=== PATIENT | male | born 1955 | race African-American/Black ===

== ENCOUNTER 2017-04-07 09:59 | Inpatient (IN) | payer OTHER ==
[2017-04-07 10:17] VITALS: BMI 32.7
--- NOTE | 2017-04-07 10:28 | PDOC ---
History of Present Illness - General Chief Complaint: Edema Stated Complaint: WEAKNESS Time Seen by Provider: 04/07/17 10:27 History Source: Patient Exam Limitations: No Limitations - History of Present Illness Initial Comments: 04/07/17 10:27 CHIEF COMPLAINT: Leg swelling HISTORY OF PRESENT ILLNESS: This is a 61-year-old male with a history of hypertension who presents for evaluation of right leg redness and swelling. The patient traveled to [facility] for 21 days, returning yesterday. While he was there, about 10 days ago, he fell and sustained some knee and tibial abrasions on the pavement. 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 He was wearing long pants so he is not sure if it was read at the time. This morning he noticed extensive redness and warmth. He reports fevers/chills overnight, but did not take his temperature. He did take a cold medicine this morning that contained Tylenol and is afebrile here. Vital signs on arrival are notable for pulse of 103. PCP is Dr. Emerita Tejada. Surgical history includes bilateral TKR. REVIEW OF SYSTEMS: GENERAL/CONSTITUTIONAL: Subjective fevers/chills. No weakness. No weight change. HEAD, EYES, EARS, NOSE AND THROAT: No change in vision. No ear pain or discharge. No sore throat. CARDIOVASCULAR: No chest pain or palpitations. RESPIRATORY: No cough, wheezing, or shortness of breath. GASTROINTESTINAL: No nausea, vomiting, diarrhea or constipation. GENITOURINARY: No dysuria, frequency, or change in urination. MUSCULOSKELETAL: RLE pain, much worse with weight-bearing. SKIN: See HPI. NEUROLOGIC: No headache, vertigo, loss of consciousness, or loss of sensation. PSYCHIATRIC: No depression or anxiety. ENDOCRINE: No increased thirst. No abnormal weight change. HEMATOLOGIC/LYMPHATIC: No anemia, easy bleeding, or history of blood clots. ALLERGIC/IMMUNOLOGIC: No hives or skin allergy. No latex allergy. PHYSICAL EXAM: GENERAL: The patient is awake, alert, and fully oriented, in no acute distress. HEAD: Normal with no signs of trauma. ENT: Pupils equal, round and reactive to light, extraocular movements intact, sclera anicteric, conjunctiva clear. Neck supple. LUNGS: Clear to auscultation bilaterally. Normal excursion. No respiratory distress or use of accessory muscles. CV: RRR, S1/S2, no MRG. Cap refill < 2 sec. ABDOMEN: Soft, non-distended, non-tender. EXTREMITIES: Right tibial area with extensive redness, warmth, and edema. Exquisitely painful to light touch. NEUROLOGICAL: Normal speech, normal gait. CN II-XII grossly intact. PSYCH: Normal mood, normal affect. SKIN: Multiple right knee abrasions, one central open abrasion at lateral aspect of right tibia. Past History - Past Medical History Allergies/Adverse Reactions: Allergies Allergy/AdvReac Type Severity Reaction Status Date / Time No Known Allergies Allergy Verified 04/07/17 10:11 Home Medications: Ambulatory Orders Amlodipine/Valsartan [Exforge 10-160 mg Tablet] 1 tab PO DAILY 04/07/17 HTN: Yes - Immunization History Immunization Up to Date: Yes - Psycho/Social/Smoking Cessation Hx Suicidal Ideation: No Smoking History: Current every day smoker Cigars Per Day: 2 Information on smoking cessation initiated: No Hx Alcohol Use: No Drug/Substance Use Hx: No *Physical Exam - Vital Signs Last Vital Signs Temp Pulse Resp BP Pulse Ox 98.7 F 103 H 15 114/98 98 04/07/17 10:12 04/07/17 10:12 04/07/17 10:12 04/07/17 10:12 04/07/17 10:12 ED Treatment Course - LABORATORY CBC & Chemistry Diagram: 04/07/17 10:59 04/07/17 10:59 Medical Decision Making - Medical Decision Making 04/07/17 11:08 A/P: 61 year old male with rapidly progressive cellulitis of the lower extremity after travel to [facility]. 1. Sepsis labs and mills-culture 2. Empiric abx: Vancomycin, Zosyn, Clindamycin 3. Xray tib/fib to evaluate for gas-forming bacteria 4. Duplex u/s to r/o DVT 5. Red area demarcated 6. Oxycodone for pain 7. ID evaluation 8. Anticipate admission 04/07/17 12:17 WBC 13.9 with 93.3% neutrophils. TBili 2.2, AST/ALT 124/128 (no prior available for comparison) Lactic acid 2.9 - 1L fluid bolus ordered. 04/07/17 12:58 Accepted for admission by Dr. Evans. *DC/Admit/Observation/Transfer Diagnosis at time of Disposition: Cellulitis Qualifiers: Site of cellulitis: extremity Site of cellulitis of extremity: lower extremity Laterality: right Qualified Code(s): L03.115 - Cellulitis of right lower limb Sepsis Qualifiers: Sepsis type: sepsis due to unspecified organism Qualified Code(s): A41.9 - Sepsis, unspecified organism - Discharge Dispostion Admit: Yes - Referrals Referrals: Emerita Hogue MD [Primary Care Provider] -
[2017-04-07] MEDS ORDERED: CLINDAMYCIN 600MG PREMIX IVPB 50 ML IVPB ONE ×2 (10:57→11:11)
[2017-04-07] MEDS ORDERED: VANCOMYCIN 1,500 MG in DEXTROSE 5%-WATER - 500 ML IVPB ONE (10:57)
[2017-04-07] MEDS ORDERED: PIPERACILLIN/TAZOB 4.5 GM/100 ML PRE-DOCKED IVPB ONE (10:57)
[2017-04-07] MEDS ORDERED: oxyCODONE HCL 5 MG TABLET PO ONE (10:59)
[2017-04-07] MEDS ORDERED: oxyCODONE HCL 5 MG TABLET ONE (11:10)
[2017-04-07] MEDS ORDERED: PIPERACILLIN/TAZOB 4.5 GM 100 ML IVPB ONE (11:11)
[2017-04-07] MEDS ORDERED: VANCOMYCIN 1 GRAM (PRE-DOCKED) 250 ML IVPB ONE (11:11)
[2017-04-07 11:41] LABS: URINE APPEARANCE CLEAR; URINE BLOOD 1+ (NEGATIVE); URINE COLOR AMBER; URINE GLUCOSE (UA) NEGATIVE (NEGATIVE); URINE KETONE TRACE (NEGATIVE); URINE LEUK ESTERASE NEGATIVE (NEGATIVE); URINE NITRITE NEGATIVE (NEGATIVE); URINE UROBILINOGEN 4.0 E.U/dl mg/dL (0.2-1.0)
[2017-04-07 11:42] LABS: URINE PROTEIN 2+ (NEGATIVE)
[2017-04-07 11:47] LABS: URINE MUCUS RARE; URINE RBC 21 /hpf (0-3); URINE WBC 11 /hpf (3-5)
[2017-04-07 12:08] LABS: BASOPHIL 0.1 % (0-2.0); EOSINOPHIL 0.7 % (0-4.5); MCH 29.4 pg (25.7-33.7); MCHC 32.1 g/dl (32.0-35.9); MEAN CELL VOLUME 91.8 fl (80-96); NEUTROPHILS 93.3 % (42.8-82.8); PLATELET COUNT 211 K/MM3 (134-434); RDW 14.3 % (11.9-15.9); WHITE BLOOD COUNT 13.9 K/mm3 (4.0-10.0)
[2017-04-07 12:21] LABS: INR 1.43 (0.82-1.09); PROTHROMBIN TIME (PATIENT) 15.9 SEC (9.98-11.88)
[2017-04-07 12:39] LABS: ALBUMIN 2.8 g/dl (3.4-5.0); ANION GAP 8 (8-16); BILIRUBIN,TOTAL 2.2 mg/dL (0.2-1.0); CALCIUM 8.5 mg/dL (8.5-10.1); CO2 27 mmol/L (21-32); CREATININE 0.9 mg/dL (0.7-1.3); GLUCOSE,RANDOM 169 mg/dL (74-106); SGOT/AST 124 U/L (15-37); SGPT/ALT 128 U/L (12-78); TOT PROT 6.6 g/dl (6.4-8.2)
[2017-04-07 12:40] LABS: ALK PHOS 124 U/L (45-117)
--- NOTE | 2017-04-07 13:16 | HP ---
Admitting History and Physical - Primary Care Physician PCP: Samantha Evans - Admission History of Present Illness: This is a 61-year-old male with a history of hypertension who presents for evaluation of right leg redness and swelling. The patient traveled to [facility] for 21 days, returning yesterday. While he was there, about 10 days ago, he fell and sustained some knee and tibial abrasions on the pavement. 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 He was wearing long pants so he is not sure if it was read at the time. This morning he noticed extensive redness and warmth. He reports fevers/chills overnight, but did not take his temperature. He did take a cold medicine this morning that contained Tylenol and is afebrile here. pt found to have extensive rle cellulitis given vanco/ clinda and zosyn in er u/s -ve for dvt x ray-ve for gas. pt seen by me in er. to be admitted to floor . comfortable no distress pain ok-- got pain meds History Source: Patient Limitations to Obtaining History: No Limitations - Past Medical History Cardiovascular: Yes: HTN - Smoking History Smoking history: Current every day smoker - Alcohol/Substance Use Hx Alcohol Use: No Home Medications - Allergies Allergies/Adverse Reactions: Allergies Allergy/AdvReac Type Severity Reaction Status Date / Time No Known Allergies Allergy Verified 04/07/17 10:11 - Home Medications Home Medications: Ambulatory Orders Amlodipine/Valsartan [Exforge 10-160 mg Tablet] 1 tab PO DAILY 04/07/17 Family Disease History - Family Disease History Family History: Unremarkable Review of Systems - Review of Systems Constitutional: reports: Chills, Fever Eyes: reports: No Symptoms HENT: reports: No Symptoms Neck: reports: No Symptoms Cardiovascular: reports: No Symptoms Respiratory: reports: No Symptoms Gastrointestinal: reports: No Symptoms Genitourinary: reports: No Symptoms Musculoskeletal: reports: Extremity Pain Integumentary: reports: Erythema Neurological: reports: No Symptoms Endocrine: reports: No Symptoms Psychiatric: reports: No Symptoms Physical Examination Vital Signs: Vital Signs Temperature 98.7 F 04/07/17 10:12 Pulse Rate 103 H 04/07/17 10:12 Respiratory Rate 15 08/06/17 10:12 Blood Pressure 114/98 08/06/17 10:12 O2 Sat by Pulse Oximetry (%) 98 04/07/17 10:12 Constitutional: Yes: No Distress, Calm Eyes: Yes: Conjunctiva Clear Neck: Yes: Supple Cardiovascular: Yes: Regular Rate and Rhythm Respiratory: Yes: CTA Bilaterally Gastrointestinal: Yes: Soft Extremities: Yes: Calf Tenderness, Erythema Edema: RLE: 1+ Peripheral Pulses WNL: Yes Neurological: Yes: WNL, Alert Psychiatric: Yes: Alert Labs: CBC, BMP 04/07/17 10:59 04/07/17 10:59 Imaging - Results Chest X-ray: Report Reviewed X-ray: Report Reviewed Ultrasound: Report Reviewed Problem List - Problems (1) Cellulitis Assessment/Plan: abx i/d consult need broad spectrum abx pain control mild hydration Code(s): L03.90 - CELLULITIS, UNSPECIFIED Qualifiers: Site of cellulitis: extremity Site of cellulitis of extremity: lower extremity Laterality: right Qualified Code(s): L03.115 - Cellulitis of right lower limb (2) Sepsis Assessment/Plan: as above. f/u cultures Code(s): A41.9 - SEPSIS, UNSPECIFIED ORGANISM Qualifiers: Sepsis type: sepsis due to unspecified organism Qualified Code(s): A41.9 - Sepsis, unspecified organism (3) Hypertension Assessment/Plan: monitor Code(s): I10 - ESSENTIAL (PRIMARY) HYPERTENSION Qualifiers: Hypertension type: essential hypertension Qualified Code(s): I10 - Essential (primary) hypertension
[2017-04-07] MEDS ORDERED: SODIUM CHLORIDE 1,000 ML IV STA (13:22)
[2017-04-07] MEDS: D5-1/2NS+20 MEQ KCL - 1,000 ML IV SCH ×2 (13:30→19:29)
[2017-04-07] MEDS ORDERED: guaiFENesin 200 MG/10 ML 10 ML UNIT-DOSE CUPS PO PRN (19:51)
[2017-04-08] MEDS ORDERED: ONDANSETRON 4 MG/2 ML VIAL ONE (02:15)
[2017-04-08] MEDS ORDERED: ONDANSETRON 4 MG/2 ML VIAL IVPB PRN (02:26)
[2017-04-08 08:37] LABS: MCH 29.7 pg (25.7-33.7); MCHC 33.1 g/dl (32.0-35.9); MEAN CELL VOLUME 89.7 fl (80-96); MEAN PLT VOLUME 7.9 fl (7.5-11.1); PLATELET COUNT 221 K/MM3 (134-434); RDW 14.5 % (11.9-15.9); WHITE BLOOD COUNT 12.4 K/mm3 (4.0-10.0)
[2017-04-08 09:04] LABS: ALBUMIN 2.4 g/dl (3.4-5.0); ALK PHOS 134 U/L (45-117); ANION GAP 5 (8-16); BILIRUBIN,TOTAL 3.5 mg/dL (0.2-1.0); CALCIUM 8.2 mg/dL (8.5-10.1); CO2 27 mmol/L (21-32); CREATININE 0.9 mg/dL (0.7-1.3); GLUCOSE,RANDOM 114 mg/dL (74-106); SGOT/AST 173 U/L (15-37); SGPT/ALT 175 U/L (12-78); TOT PROT 5.9 g/dl (6.4-8.2)
[2017-04-08] MEDS: D5-1/2NS+20 MEQ KCL - 1,000 ML IV SCH ×2 (09:22→17:11)
--- NOTE | 2017-04-08 09:26 | PN ---
Progress Note (short form) - Note Progress Note: Pt seen/ examined episodes of vomiting last night denies abd pain. low grade temp. Vital Signs Temp 99.8 F H 04/08/17 09:00 Pulse 111 H 04/08/17 09:00 Resp 20 04/08/17 09:00 BP 146/91 04/08/17 09:00 Pulse Ox 98 04/07/17 13:27 Intake & Output 04/07/17 04/07/17 04/08/17 11:59 23:59 11:59 Intake Total 300 1000 Output Total 900 Balance -600 1000 Weight 255 lb 255 lb Intake: IV 300 1000 D5-1/2Ns+20 Meq KCl - 1, 300 1000 000 ml @ 100 mls/hr IV ASDIR [facility] Rx#:[id number] Output: Urine 900 Void 900 Other: Voiding Method Urinal Bowel Movement No Height 6 ft 2 in 6 ft 2 in Body Mass Index (BMI) 32.7 32.7 Weight Measurement Method Stated by Patient Weight Measurement Method Est/Stated by Patient Active Medications Acetaminophen (Tylenol -) 650 mg PO Q6H PRN PRN Reason: FEVER OR PAIN Amlodipine Besylate (Norvasc -) 10 mg PO DAILY [facility] Enoxaparin Sodium (Lovenox -) 40 mg SQ DAILY [facility] Guaifenesin (Robitussin -) 10 ml PO Q6H PRN Potassium Chloride/Dextrose/Sod Cl (D5-1/2ns+20 Meq Kcl -) 1,000 mls @ 100 mls/ hr IV ASDIR [facility] Last Admin: 04/08/17 09:22 Dose: 100 mls/hr Ondansetron HCl (Zofran Injection) 4 mg IVPB Q6H PRN PRN Reason: NAUSEA AND/OR VOMITING Last Admin: 04/08/17 02:27 Dose: 4 mg Oxycodone HCl (Roxicodone -) 5 mg PO Q4H PRN PRN Reason: PAIN Valsartan (Diovan -) 160 mg PO DAILY [facility] CBC, BMP 04/08/17 07:05 04/08/17 07:05 Physical Examination Constitutional: Yes: No Distress, Calm Eyes: Yes: Conjunctiva Clear/ no icterus Neck: Yes: Supple/ no jvd Cardiovascular: Yes: Regular Rate and Rhythm Respiratory: Yes: CTA Bilaterally Gastrointestinal: Yes: Soft/ non tender Extremities: Yes: Calf Tenderness, Erythema-- slightly decreased Edema: RLE: 1+ Peripheral Pulses WNL: Yes Neurological: Yes: WNL, Alert Psychiatric: Yes: Alert A/P continue abx clinda i/d consult pending - will discuss. elevated lfts-- r/o acute infection-- order hepatitis profile/ u/s liver monitor smoking cessation counselling provided again. will follow Problem List - Problems (1) Cellulitis Code(s): L03.90 - CELLULITIS, UNSPECIFIED Qualifiers: Site of cellulitis: extremity Site of cellulitis of extremity: lower extremity Laterality: right Qualified Code(s): L03.115 - Cellulitis of right lower limb (2) Sepsis Code(s): A41.9 - SEPSIS, UNSPECIFIED ORGANISM Qualifiers: Sepsis type: sepsis due to unspecified organism Qualified Code(s): A41.9 - Sepsis, unspecified organism (3) Hypertension Code(s): I10 - ESSENTIAL (PRIMARY) HYPERTENSION Qualifiers: Hypertension type: essential hypertension Qualified Code(s): I10 - Essential (primary) hypertension (4) Elevated LFTs Code(s): R79.89 - OTHER SPECIFIED ABNORMAL FINDINGS OF BLOOD CHEMISTRY
[2017-04-08] MEDS ORDERED: PATIENT'S OWN MEDICATION (NON-FORMULARY) (Amlodipine/Valsartan [Exforge 10-160 Mg Tablet] PO SCH (10:00)
[2017-04-08] MEDS ORDERED: PT OWN MED DRAWER 7, Y5N ONE (10:14)
[2017-04-08] MEDS ORDERED: CLINDAMYCIN 600MG PREMIX IVPB 50 ML IVPB SCH (10:15)
[2017-04-08] MEDS: amLODIPine BESYLATE 10 MG TABLET (FP) PO SCH (10:16)
[2017-04-08] MEDS: VALSARTAN 160 MG TABLET (UD) PO SCH (10:16)
[2017-04-08] MEDS: ENOXAPARIN NA (PORCINE) 40 MG/0.4 ML DISP.SYRIN SQ SCH (10:16)
[2017-04-08 11:21] LABS: METAMYELOCYTE 2 % (0-2); PLATELET ESTIMATE ADEQUATE (NORMAL)
--- NOTE | 2017-04-08 13:38 | EKG ---
Test Reason : Blood Pressure : / mmHG Vent. Rate : 100 BPM Atrial Rate : 100 BPM P-R Int : 134 ms QRS Dur : 096 ms QT Int : 342 ms P-R-T Axes : 063 022 035 degrees QTc Int : 441 ms NORMAL SINUS RHYTHM NORMAL ECG NO PREVIOUS ECGS AVAILABLE Confirmed by MANUEL KURTZ MD ([id number]) on 04/08/2017 1:38:21 PM Referred By: Confirmed By:MANUEL KURTZ MD
[2017-04-08] MEDS: ACETAMINOPHEN 325 MG TABLET (FP) PO PRN (14:29)
--- NOTE | 2017-04-08 15:06 | PN ---
Progress Note, Physician Chief Complaint: ID Consult dictated Trauma history of a fall while [place] on [place] Fell on gravel trail n water involved and not diabetic Fever and chills with leg pain 6/10 on admission but today is lessening - Current Medication List Current Medications: Active Medications Acetaminophen (Tylenol -) 650 mg PO Q6H PRN PRN Reason: FEVER OR PAIN Last Admin: 04/08/17 14:29 Dose: 650 mg Amlodipine Besylate (Norvasc -) 10 mg PO DAILY [facility] Last Admin: 04/08/17 10:16 Dose: 10 mg Enoxaparin Sodium (Lovenox -) 40 mg SQ DAILY [facility] Last Admin: 04/08/17 10:16 Dose: 40 mg Guaifenesin (Robitussin -) 10 ml PO Q6H PRN Potassium Chloride/Dextrose/Sod Cl (D5-1/2ns+20 Meq Kcl -) 1,000 mls @ 100 mls/ hr IV ASDIR [facility] Last Admin: 04/08/17 09:22 Dose: 100 mls/hr Clindamycin Phosphate (Cleocin 600 Mg Premix Ivpb -) 50 mls @ 100 mls/hr IVPB Q8H-IV RUBÉN Last Admin: 04/08/17 10:29 Dose: 100 mls/hr Ondansetron HCl (Zofran Injection) 4 mg IVPB Q6H PRN PRN Reason: NAUSEA AND/OR VOMITING Last Admin: 04/08/17 02:27 Dose: 4 mg Oxycodone HCl (Roxicodone -) 5 mg PO Q4H PRN PRN Reason: PAIN Valsartan (Diovan -) 160 mg PO DAILY [facility] Last Admin: 04/08/17 10:16 Dose: 160 mg - Objective Vital Signs: Vital Signs Temperature 99.8 F H 04/08/17 09:00 Pulse Rate 111 H 04/08/17 09:00 Respiratory Rate 20 04/08/17 09:00 Blood Pressure 146/91 04/08/17 09:00 O2 Sat by Pulse Oximetry (%) 98 04/07/17 13:27 Constitutional: Yes: Obese Cardiovascular: Yes: S1, S2 Respiratory: Yes: WNL, Regular, CTA Bilaterally Gastrointestinal: Yes: Soft Extremities: Yes: Other (scrape of the right knee no pus no knee effusion Tender red warm RLE with induration no crepitance) Labs: CBC, BMP 04/08/17 07:05 04/08/17 07:05 INR, PTT INR 1.43 (0.82-1.09) H 04/07/17 10:59 Problem List - Problems (1) Elevated LFTs Code(s): R79.89 - OTHER SPECIFIED ABNORMAL FINDINGS OF BLOOD CHEMISTRY Assessment/Plan Microbiology 04/07/17 10:59 Blood - Peripheral Venous Blood Culture - Preliminary NO GROWTH OBTAINED AFTER 24 HOURS, INCUBATION TO CONTINUE FOR 4 DAYS. 04/07/17 10:50 Blood - Peripheral Venous Blood Culture - Preliminary NO GROWTH OBTAINED AFTER 24 HOURS, INCUBATION TO CONTINUE FOR 4 DAYS. Laboratory Tests 04/07/17 04/07/17 04/07/17 10:59 10:59 11:00 WBC 13.9 H Hgb 12.2 Plt Count 211 BUN Total Bilirubin AST ALT Alkaline Phosphatase 124 H Urine RBC 21 Urine WBC 11 04/08/17 07:05 WBC Hgb Plt Count BUN 7 Total Bilirubin 3.5 H D AST 173 H D ALT 175 H D Alkaline Phosphatase 134 H Urine RBC Urine WBC Assessment Severe cellulitis of the right leg No gas seen on plain film seems to be improving Elevated LFTS ? biliary tract disease Obesity Plan I do not think he has necrotizing fasciitis but dose have severe cellulitis Rule out biliary tract disease as he is complaing of nausea vomiting Ultrasound Zosyn 4.5 grs q 8H ESR CRP CT leg rule out abscess Agnes JEFFREY
[2017-04-08] MEDS ORDERED: PIPERACILLIN/TAZOBACTAM 4.5 GM VIAL IVPB ONE (17:07)
[2017-04-08] MEDS ORDERED: DEXTROSE 5%-WATER 100 ML IVPB ONE (17:08)
[2017-04-08] MEDS: PIPERACILLIN/TAZOB 4.5 GM 4.5 GM in DEXTROSE 5%-WATER 100 ML IVPB SCH (17:11)
[2017-04-09] MEDS ORDERED: DEXTROSE 5%-WATER 100 ML IVPB ONE ×4 (01:46→22:13)
[2017-04-09] MEDS ORDERED: PIPERACILLIN/TAZOBACTAM 4.5 GM VIAL IVPB ONE ×4 (01:46→22:13)
[2017-04-09] MEDS: PIPERACILLIN/TAZOB 4.5 GM 4.5 GM in DEXTROSE 5%-WATER 100 ML IVPB SCH ×3 (01:56→18:00)
[2017-04-09 09:05] LABS: MCH 29.7 pg (25.7-33.7); MCHC 33.1 g/dl (32.0-35.9); MEAN CELL VOLUME 89.8 fl (80-96); MEAN PLT VOLUME 8.4 fl (7.5-11.1); PLATELET COUNT 239 K/MM3 (134-434); RDW 14.7 % (11.9-15.9); WHITE BLOOD COUNT 13.9 K/mm3 (4.0-10.0)
--- NOTE | 2017-04-09 09:23 | CONS ---
DATE OF CONSULTATION: DATE OF DICTATION: 04/09/2017 This is a 61-year-old [place] male whom I am asked to see for soft tissue infection of the right lower extremity. This 61-year-old male with a history of hypertension recently traveled to [facility] for vacation. He spent approximately 3 weeks there beginning in mid March returning recently in the beginning of April. A week before he came home on the he notes that he had been hiking on a gravel trail, lost his balance, and fell sustaining a laceration and scrape to the right knee. Over the course of the week the right knee became painful and swollen and by the time he had reached [place] on his route to [facility] on the the knee was extremely painful and associated with fever and chills overnight. He came to the emergency room where he was empirically treated with vancomycin, clindamycin and Zosyn. Blood cultures were drawn and I am asked to see him for further evaluation. Since admission he notes feeling better. His pain which he initially placed as 6 out of 10 on a pain scale has now diminished overnight presumably from the antibiotics. His blood cultures thus far no growth. He also notes nausea and vomiting for the last several days but denies any abdominal pain. He has no history of prior surgery. His only other history includes a bilateral knee replacements done separately many years ago. MEDICATIONS AT HOME: Amlodipine, valsartan. ALLERGIES: None known. SOCIAL HISTORY: Nonsmoker, . HIV status unknown. FAMILY HISTORY: Reviewed, noncontributory. REVIEW OF SYSTEMS: Respiratory: No cough, shortness of breath. Cardiac: No chest pain, palpitations, murmur. Gastrointestinal: Positive nausea, positive several episodes of vomiting. Denies abdominal pain, diarrhea. Genitourinary: No dysuria, hematuria. Musculoskeletal: Pain in the right lower leg as described. PHYSICAL EXAMINATION: General: He was an alert, pleasant male in no acute distress. Vital Signs: Temperature of 101, pulse 114, blood pressure 152/96, respirations 20. Neck: Supple, no adenopathy. Lungs: Clear percussion and auscultation. Heart: S1, S2, regular rhythm. No audible murmur or gallop. Abdomen: Positive bowel sounds, soft. Positive Coleman's sign. Tenderness on direct palpation right upper quadrant. No rebound. Extremities: Revealed diffuse swelling and induration of the right lower extremity above the ankle extending to below the knee. The knee itself appeared minimally swollen with no obvious palpable effusion. The scrape laceration over the right knee appeared dry and without any purulence. No palpable crepitance. Minimal to moderate tenderness on general palpation of the right lower extremity. LABORATORY DATA: The white count was 13.9, hemoglobin 12.2, platelets 211, left shift with 93% polys. BUN 7, creatinine 0.9, bilirubin 3.5, AST 173, ALT 175, alkaline phosphatase 134, CRP of 38.7, urinalysis with 21 RBCs, 11 WBCs, negative leukocyte esterase. Two sets of blood cultures no growth. Urine culture pending. Chest x-ray shows no acute infiltrate. X-ray of the tibia, fibula shows no sign of soft tissue, air or swelling. ASSESSMENT: A 61-year-old [place] male presents with fever and traumatic injury to the right knee having fallen on a gravel path. He now has secondary severe cellulitis of the right lower extremity. Necrotizing fasciitis less likely given a moderate amount of pain and clinical improvement overnight, less than 24 hours. Additional findings include right upper quadrant tenderness with nausea and vomiting and elevated liver enzymes which I suspect are probably a secondary issue and may represent acute cholecystitis. This was all discussed with Dr. Samantha Evans after I saw the patient and I recommended that a CAT scan of the leg be obtained to rule out any abscess collection, a SED rate, ESR, and HIV testing, empiric therapy with piperacillin tazobactam 4.5 gm every 8 hours, abdominal ultrasound as well as renal ultrasound to evaluate hematuria and possible cholecystitis, advise GI consultation which has been requested, and a hepatitis screening. GAMA DELCID M.D. [id number]
[2017-04-09 09:34] LABS: ALBUMIN 2.4 g/dl (3.4-5.0); ANION GAP 9 (8-16); BILIRUBIN,TOTAL 3.7 mg/dL (0.2-1.0); CALCIUM 8.6 mg/dL (8.5-10.1); CO2 25 mmol/L (21-32); CREATININE 0.8 mg/dL (0.7-1.3); GLUCOSE,RANDOM 117 mg/dL (74-106); SGOT/AST 119 U/L (15-37); SGPT/ALT 163 U/L (12-78); TOT PROT 6.3 g/dl (6.4-8.2)
[2017-04-09 09:36] LABS: ALK PHOS 170 U/L (45-117)
[2017-04-09 09:43] LABS: HIV 1 & 2 AB NEGATIVE; HIV 1 AGp24 NEGATIVE
[2017-04-09] MEDS: VALSARTAN 160 MG TABLET (UD) PO SCH (11:15)
[2017-04-09] MEDS: amLODIPine BESYLATE 10 MG TABLET (FP) PO SCH (11:15)
[2017-04-09] MEDS: ENOXAPARIN NA (PORCINE) 40 MG/0.4 ML DISP.SYRIN SQ SCH (11:15)
[2017-04-09 11:18] LABS: METAMYELOCYTE 2 % (0-2)
[2017-04-09 11:19] LABS: PLATELET ESTIMATE ADEQUATE (NORMAL)
[2017-04-09] MEDS: ACETAMINOPHEN 325 MG TABLET (FP) PO PRN (11:25)
[2017-04-09] MEDS: oxyCODONE HCL 5 MG TABLET PO PRN (11:25)
--- NOTE | 2017-04-09 13:01 | PN ---
Progress Note, Physician Chief Complaint: Family at bedside Pt feels better - Current Medication List Current Medications: Active Medications Acetaminophen (Tylenol -) 650 mg PO Q6H PRN PRN Reason: FEVER OR PAIN Last Admin: 04/09/17 11:25 Dose: 650 mg Amlodipine Besylate (Norvasc -) 10 mg PO DAILY [facility] Last Admin: 04/09/17 11:15 Dose: 10 mg Enoxaparin Sodium (Lovenox -) 40 mg SQ DAILY [facility] Last Admin: 04/09/17 11:15 Dose: 40 mg Guaifenesin (Robitussin -) 10 ml PO Q6H PRN Potassium Chloride/Dextrose/Sod Cl (D5-1/2ns+20 Meq Kcl -) 1,000 mls @ 100 mls/ hr IV ASDIR [facility] Last Admin: 04/08/17 17:11 Dose: Not Given Piperacillin Sod/Tazobactam (Sod 4.5 gm/ Dextrose) 100 mls @ 200 mls/hr IVPB Q8H-IV RUBÉN PRN Reason: Protocol Last Admin: 04/09/17 11:15 Dose: 200 mls/hr Ondansetron HCl (Zofran Injection) 4 mg IVPB Q6H PRN PRN Reason: NAUSEA AND/OR VOMITING Last Admin: 04/08/17 02:27 Dose: 4 mg Oxycodone HCl (Roxicodone -) 5 mg PO Q4H PRN PRN Reason: PAIN Last Admin: 04/09/17 11:25 Dose: 5 mg Valsartan (Diovan -) 160 mg PO DAILY [facility] Last Admin: 04/09/17 11:15 Dose: 160 mg - Objective Vital Signs: Vital Signs Temperature 99.3 F 04/09/17 07:12 Pulse Rate 101 H 04/09/17 07:12 Respiratory Rate 20 04/09/17 07:12 Blood Pressure 154/83 04/09/17 07:12 O2 Sat by Pulse Oximetry (%) 98 04/07/17 13:27 Constitutional: Yes: No Distress Cardiovascular: Yes: Regular Rate and Rhythm Respiratory: Yes: CTA Bilaterally Gastrointestinal: Yes: Normal Bowel Sounds, Soft, Tenderness (epigastrium) Extremities: Yes: Erythema Edema: Yes Edema: RLE: 2+ Labs: CBC, BMP 04/09/17 07:35 04/09/17 07:35 INR, PTT INR 1.43 (0.82-1.09) H 04/07/17 10:59 Problem List - Problems (1) Cellulitis Code(s): L03.90 - CELLULITIS, UNSPECIFIED Qualifiers: Site of cellulitis: extremity Site of cellulitis of extremity: lower extremity Laterality: right Qualified Code(s): L03.115 - Cellulitis of right lower limb (2) Elevated LFTs Code(s): R79.89 - OTHER SPECIFIED ABNORMAL FINDINGS OF BLOOD CHEMISTRY (3) Hypertension Code(s): I10 - ESSENTIAL (PRIMARY) HYPERTENSION Qualifiers: Hypertension type: essential hypertension Qualified Code(s): I10 - Essential (primary) hypertension (4) Sepsis Code(s): A41.9 - SEPSIS, UNSPECIFIED ORGANISM Qualifiers: Sepsis type: sepsis due to unspecified organism Qualified Code(s): A41.9 - Sepsis, unspecified organism (5) 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
--- NOTE | 2017-04-09 14:27 | PN ---
Progress Note (short form) - Note Progress Note: ID Zosyn day 1 No vomiting since yesterday Some epigastric pain Selected Entries 04/09/17 07:12 Temperature 99.3 F Pulse Rate 101 H Respiratory 20 Rate Blood Pressure 154/83 Microbiology 04/07/17 11:28 Urine - Urine Clean Catch Urine Culture - Final NO GROWTH OBTAINED 04/07/17 10:59 Blood - Peripheral Venous Blood Culture - Preliminary NO GROWTH OBTAINED AFTER 48 HOURS, INCUBATION TO CONTINUE FOR 3 DAYS. 04/07/17 10:50 Blood - Peripheral Venous Blood Culture - Preliminary NO GROWTH OBTAINED AFTER 48 HOURS, INCUBATION TO CONTINUE FOR 3 DAYS. Laboratory Tests 04/07/17 04/09/17 04/09/17 11:00 07:35 07:35 WBC 13.9 H Hgb 11.1 L Plt Count 239 ESR AST 119 H D ALT 163 H Alkaline Phosphatase 170 H D Urine RBC 21 Urine WBC 11 04/09/17 07:35 WBC Hgb Plt Count ESR 121 H AST ALT Alkaline Phosphatase Urine RBC Urine WBC Assessment Severe cellulitis of the LE improving gradually Elevated LFTS ? biliary related Fatty infiltration o the liver Enlarged pancreataic head Plan Continue Zosyn Await GI opinion CT abd Viral markers Discussed with resident Agnes JEFFREY Problem List - Problems (1) Elevated LFTs Code(s): R79.89 - OTHER SPECIFIED ABNORMAL FINDINGS OF BLOOD CHEMISTRY
--- NOTE | 2017-04-09 14:27 | CON.GI ---
Consult Consult Specialty:: gastroenterology Referred by:: Dr Samantha Evans/Mykel - History of Present Illness History of Present Illness: 61 y/o male with PMH of HTN was admitted because of servere left leg cellulitis. On routine labs he was noted to have mild-moderate elevation of his LFTS. He complains of chronic epigastric pain, no nausea, no vomiting and no weight loss. His LFTs continue to trend up. Abdominal ultrasound revealed a contracted Gallbladder with a prominent pancreatic head. - Past Medical History Cardio/Vascular: Yes: HTN - Alcohol/Substance Use Hx Alcohol Use: No - Smoking History Smoking history: Current every day smoker Home Medications - Allergies Allergies/Adverse Reactions: Allergies Allergy/AdvReac Type Severity Reaction Status Date / Time No Known Allergies Allergy Verified 04/07/17 10:11 - Home Medications Home Medications: Ambulatory Orders Amlodipine/Valsartan [Exforge 10-160 mg Tablet] 1 tab PO DAILY 04/07/17 Family Disease History - Family Disease History Family History: Denies (colon and gastric cancer) Review of Systems - Review of Systems Constitutional: denies: Fever Eyes: denies: Blind Spots HENT: denies: Difficult Swallowing Neck: denies: Decreased ROM Cardiovascular: denies: Chest Pain Respiratory: denies: Cough, SOB Gastrointestinal: reports: Abdominal Pain (-epigastric pain) Endocrine: denies: Unexplained Weight Loss Physical Exam-GI Vital Signs: Vital Signs Temperature 99.3 F 04/09/17 07:12 Pulse Rate 101 H 04/09/17 07:12 Respiratory Rate 20 04/09/17 07:12 Blood Pressure 154/83 04/09/17 07:12 O2 Sat by Pulse Oximetry (%) 98 04/07/17 13:27 Constitutional: Yes: Obese Eyes: Yes: Conjunctiva Clear HENT: Yes: Atraumatic Neck: Yes: Supple Cardiovascular: Yes: Regular Rate and Rhythm Respiratory: Yes: CTA Bilaterally ...Palpate: Yes: Soft, Tenderness, Epigastium. No: Firm/Rigid, Guarding, Hepatomegaly, Mass, Pulsatile Mass, Splenomegaly, Tenderness Labs: CBC, BMP 04/09/17 07:35 04/09/17 07:35 INR, PTT INR 1.43 (0.82-1.09) H 04/07/17 10:59 Hepatic Panel Total Bilirubin 3.7 mg/dL (0.2-1.0) H 04/09/17 07:35 AST 119 U/L (15-37) H D 04/09/17 07:35 ALT 163 U/L (12-78) H 04/09/17 07:35 Alkaline Phosphatase 170 U/L (45-117) H D 04/09/17 07:35 Albumin 2.4 g/dl (3.4-5.0) L 04/09/17 07:35 Imaging - Results Ultrasound: Image Reviewed Problem List - Problems (1) Jaundice Assessment/Plan: etiology unclear r/o secondary to drug toxicity vs CBD obstruction R> avoid hepatotoxic medication MRI with MRCP total bilirubin, direct and indirect Code(s): R17 - UNSPECIFIED JAUNDICE
--- NOTE | 2017-04-09 14:32 | PN ---
Physical Exam: SUBJECTIVE: Patient seen and examined. No fever, chills, n/v today. Has epigastric discomfort. No BM in 3 days, passing gas. No dysuria. OBJECTIVE: Vital Signs Period Temp Pulse Resp BP Sys/Moy Pulse Ox Last 24 Hr 98.7 F-101 F 101-114 20-20 126-154/82-96 GENERAL: The patient is awake, alert, and fully oriented, in no acute distress. HEAD: Normal with no signs of trauma. EYES: sclera anicteric, conjunctiva clear ENT: oropharynx clear without exudates, mmm, no sublingual jaundice NECK: supple, no cervical LAD LUNGS: CTAB, no wheezes, no crackles, or rhonchi HEART: rrr, normal s1/s2, no murmur, rub or gallop. ABDOMEN: obese, soft, epigastric and RUQ tenderness to palpation LOWER EXTREMITIES: 2+ pulses, warm, well-perfused, no edema. R LE cellulitis over anterior coelho, warm, tender to touch, no 0crepitus SKIN: Warm, dry, normal turgor. Microbiology 04/07/17 10:59 Blood - Peripheral Venous Blood Culture - Preliminary NO GROWTH OBTAINED AFTER 48 HOURS, INCUBATION TO CONTINUE FOR 3 DAYS. 04/07/17 11:28 Urine - Urine Clean Catch Urine Culture - Final NO GROWTH OBTAINED 04/07/17 10:50 Blood - Peripheral Venous Blood Culture - Preliminary NO GROWTH OBTAINED AFTER 48 HOURS, INCUBATION TO CONTINUE FOR 3 DAYS. IMAGING: LE CT (04/08/2017): no gas in soft tissue, no e/o osteomyelitis or underlying collection Abd US (04/08/2017): GB contracted, Hepatomegaly with fatty infiltration, Pancreatic head enlarged; study limited and suggest additional imaging Active Medications Acetaminophen (Tylenol -) 650 mg PO Q6H PRN PRN Reason: FEVER OR PAIN Last Admin: 04/09/17 11:25 Dose: 650 mg Amlodipine Besylate (Norvasc -) 10 mg PO DAILY [facility] Last Admin: 04/09/17 11:15 Dose: 10 mg Enoxaparin Sodium (Lovenox -) 40 mg SQ DAILY [facility] Last Admin: 04/09/17 11:15 Dose: 40 mg Guaifenesin (Robitussin -) 10 ml PO Q6H PRN Potassium Chloride/Dextrose/Sod Cl (D5-1/2ns+20 Meq Kcl -) 1,000 mls @ 100 mls/ hr IV ASDIR [facility] Last Admin: 04/08/17 17:11 Dose: Not Given Piperacillin Sod/Tazobactam (Sod 4.5 gm/ Dextrose) 100 mls @ 200 mls/hr IVPB Q8H-IV [facility] PRN Reason: Protocol Last Admin: 04/09/17 11:15 Dose: 200 mls/hr Ondansetron HCl (Zofran Injection) 4 mg IVPB Q6H PRN PRN Reason: NAUSEA AND/OR VOMITING Last Admin: 04/08/17 02:27 Dose: 4 mg Oxycodone HCl (Roxicodone -) 5 mg PO Q4H PRN PRN Reason: PAIN Last Admin: 04/09/17 11:25 Dose: 5 mg Valsartan (Diovan -) 160 mg PO DAILY [facility] Last Admin: 04/09/17 11:15 Dose: 160 mg ASSESSMENT/PLAN: 61yo man with severe R LE cellulitis that is improving with Zosyn. Patient was found to have elevated LFTs and transaminitis, which is currently being worked up. Additional history from patient revealed intermittent epigastric pain for at least the past year that is improved with eating. Abdominal US was limited, but did reveal fatty liver infiltrate and enlarged pancreatic head. GI has been consulted, and plans to MRI with MRCP to further assess. #severe cellulitis -Continue Zosyn 4.5g IVPN Q8H -f/u blood culture #elevated LFTs -f/u hepatitis viral panel -HIV neg d/w Dr. Agnes Avila MD PGY-1 Visit type - Emergency Visit Emergency Visit: No - New Patient This patient is new to me today: No - Critical Care Critical Care patient: No
[2017-04-09] MEDS: D5-1/2NS+20 MEQ KCL - 1,000 ML IV SCH (15:18)
[2017-04-09 21:36] LABS: BILIRUBIN,TOTAL 3.6 mg/dL (0.2-1.0)
[2017-04-10] MEDS: PIPERACILLIN/TAZOB 4.5 GM 4.5 GM in DEXTROSE 5%-WATER 100 ML IVPB SCH ×3 (01:28→17:06)
[2017-04-10] MEDS: D5-1/2NS+20 MEQ KCL - 1,000 ML IV SCH ×2 (01:49→12:17)
[2017-04-10 07:12] LABS: MCH 29.2 pg (25.7-33.7); MCHC 32.7 g/dl (32.0-35.9); MEAN CELL VOLUME 89.3 fl (80-96); MEAN PLT VOLUME 8.2 fl (7.5-11.1); PLATELET COUNT 252 K/MM3 (134-434); RDW 14.6 % (11.9-15.9); WHITE BLOOD COUNT 15.4 K/mm3 (4.0-10.0)
[2017-04-10 07:34] LABS: ALBUMIN 2.3 g/dl (3.4-5.0); ANION GAP 8 (8-16); CALCIUM 8.7 mg/dL (8.5-10.1); CO2 24 mmol/L (21-32); CREATININE 0.8 mg/dL (0.7-1.3); GLUCOSE,RANDOM 128 mg/dL (74-106); SGOT/AST 90 U/L (15-37); SGPT/ALT 137 U/L (12-78)
[2017-04-10 07:35] LABS: ALK PHOS 188 U/L (45-117); BILIRUBIN,TOTAL 3.5 mg/dL (0.2-1.0); TOT PROT 6.2 g/dl (6.4-8.2)
--- NOTE | 2017-04-10 09:01 | PN ---
Physical Exam: SUBJECTIVE: Patient seen and examined. Fellign better. No fever, chills, n/v. Less epigastric pain this AM. No BM in 4days, some flatus. RLE less painful. No dysuria, but states his urine was red-tinged this am. OBJECTIVE: Vital Signs Period Temp Pulse Resp BP Sys/Moy Pulse Ox Last 24 Hr 98.2 F-99.4 F 93-95 18-20 135-146/79-85 99-99 GENERAL: The patient is awake, alert, and fully oriented, in no acute distress. HEAD: Normal with no signs of trauma. EYES: sclera anicteric, conjunctiva clear ENT: oropharynx clear without exudates, mmm, no sublingual jaundice NECK: supple, no cervical LAD LUNGS: CTAB, no wheezes, no crackles, or rhonchi HEART: rrr, normal s1/s2, no murmur, rub or gallop. ABDOMEN: obese, soft, epigastric and RUQ tenderness to palpation LOWER EXTREMITIES: 2+ pulses b/l, R LE cellulitis, warm, tender to touch, no crepitus, 1+ R pedal edema SKIN: Warm, dry, normal turgor. CBC, BMP 04/10/17 06:00 04/10/17 06:00 Hepatic Panel Total Bilirubin 3.5 mg/dL (0.2-1.0) H 04/10/17 06:00 Direct Bilirubin 3.0 mg/dL (0.0-0.2) H 04/09/17 16:00 AST 90 U/L (15-37) H D 04/10/17 06:00 ALT 137 U/L (12-78) H 04/10/17 06:00 Alkaline Phosphatase 188 U/L (45-117) H 04/10/17 06:00 Albumin 2.3 g/dl (3.4-5.0) L 04/10/17 06:00 Laboratory Tests 04/08/17 04/08/17 04/09/17 04/10/17 12:00 15:30 16:00 06:00 Carcinoembryonic Ag Pending CA 19-9 Antigen Pending Hepatitis A IgM Ab Negative Hep Bs Antigen Negative Hep B Core IgM Ab Negative Hepatitis C Ab (EIA) <0.1 HIV 1&2 Antibody Screen Negative HIV P24 Antigen Negative Microbiology 04/07/17 10:59 Blood - Peripheral Venous Blood Culture - Preliminary NO GROWTH OBTAINED AFTER 48 HOURS, INCUBATION TO CONTINUE FOR 3 DAYS. 04/07/17 11:28 Urine - Urine Clean Catch Urine Culture - Final NO GROWTH OBTAINED 04/07/17 10:50 Blood - Peripheral Venous Blood Culture - Preliminary NO GROWTH OBTAINED AFTER 48 HOURS, INCUBATION TO CONTINUE FOR 3 DAYS. Active Medications Acetaminophen (Tylenol -) 650 mg PO Q6H PRN PRN Reason: FEVER OR PAIN Last Admin: 04/09/17 11:25 Dose: 650 mg Amlodipine Besylate (Norvasc -) 10 mg PO DAILY [facility] Last Admin: 04/09/17 11:15 Dose: 10 mg Enoxaparin Sodium (Lovenox -) 40 mg SQ DAILY [facility] Last Admin: 04/09/17 11:15 Dose: 40 mg Guaifenesin (Robitussin -) 10 ml PO Q6H PRN Potassium Chloride/Dextrose/Sod Cl (D5-1/2ns+20 Meq Kcl -) 1,000 mls @ 100 mls/ hr IV ASDIR [facility] Last Admin: 04/10/17 01:49 Dose: 100 mls/hr Piperacillin Sod/Tazobactam (Sod 4.5 gm/ Dextrose) 100 mls @ 200 mls/hr IVPB Q8H-IV [facility] PRN Reason: Protocol Last Admin: 04/10/17 01:28 Dose: 200 mls/hr Ondansetron HCl (Zofran Injection) 4 mg IVPB Q6H PRN PRN Reason: NAUSEA AND/OR VOMITING Last Admin: 04/08/17 02:27 Dose: 4 mg Oxycodone HCl (Roxicodone -) 5 mg PO Q4H PRN PRN Reason: PAIN Last Admin: 04/09/17 11:25 Dose: 5 mg Valsartan (Diovan -) 160 mg PO DAILY [facility] Last Admin: 04/09/17 11:15 Dose: 160 mg ASSESSMENT/PLAN: 61yo man with severe RLE cellulitis that is gradually improving with Zosyn. Patient was found to have elevated LFTs (transaminitis, hyperbilirubinemia). MRI with MRCP performed yesterday, and awaiting results. Patient continues to have intermittent asymptomatic gross hematuria. #severe cellulitis -Continue Zosyn 4.5g IVPN Q8H -f/u blood culture (NGTD x 48h) #elevated LFTs -MRI/MRCP results pending -hepatitis viral panel neg -HIV neg #asymptomatic gross hematuria: H&H stable, creatinine kinase wnl -Consider additional imaging if persists and MRI/MCRP unrevealing d/w Dr. Pedro Avila MD PGY-1 Visit type - Emergency Visit Emergency Visit: No - New Patient This patient is new to me today: No - Critical Care Critical Care patient: No
[2017-04-10] MEDS ORDERED: DEXTROSE 5%-WATER 100 ML IVPB ONE ×3 (09:37→21:06)
[2017-04-10] MEDS ORDERED: PIPERACILLIN/TAZOBACTAM 4.5 GM VIAL IVPB ONE ×3 (09:37→21:06)
[2017-04-10] MEDS: amLODIPine BESYLATE 10 MG TABLET (FP) PO SCH (09:43)
[2017-04-10] MEDS: VALSARTAN 160 MG TABLET (UD) PO SCH (09:43)
[2017-04-10] MEDS: ENOXAPARIN NA (PORCINE) 40 MG/0.4 ML DISP.SYRIN SQ SCH (09:43)
[2017-04-10] MEDS: ACETAMINOPHEN 325 MG TABLET (FP) PO PRN (09:48)
[2017-04-10] MEDS: oxyCODONE HCL 5 MG TABLET PO PRN (09:49)
--- NOTE | 2017-04-10 10:23 | PN ---
Teaching Attending Note Name of Resident: Cristy Avila ATTENDING PHYSICIAN STATEMENT I saw and evaluated the patient. I reviewed the resident's note and discussed the case with the resident. I agree with the resident's findings and plan as documented. SUBJECTIVE: reports feeling improved, still midepigastric pain fever curve down intermittent red urine OBJECTIVE: Vital Signs Period Temp Pulse Resp BP Sys/Moy Pulse Ox Last 24 Hr 98.2 F-99.4 F 93-95 18-20 135-146/79-85 99 cor-rrr lungs clear abd soft,midepigastric pain to palpation ext +erythema and warmth RLE (reports some improvement) +swelling CBC, BMP 04/10/17 06:00 04/10/17 06:00 ASSESSMENT AND PLAN: severe cellulitis RLE r/o biliary disease/pancreatic disease- f/u ERCP today intermittent hematuria? continue zosyn f/u imaging studies
[2017-04-10 11:43] LABS: PLATELET ESTIMATE ADEQUATE (NORMAL)
--- NOTE | 2017-04-10 12:25 | PN ---
Progress Note, Physician Chief Complaint: right leg-- decreased leg swelling and pain no fever still has some abdominal pain no diarrhea - Current Medication List Current Medications: Active Medications Acetaminophen (Tylenol -) 650 mg PO Q6H PRN PRN Reason: FEVER OR PAIN Last Admin: 04/10/17 09:48 Dose: 650 mg Amlodipine Besylate (Norvasc -) 10 mg PO DAILY [facility] Last Admin: 04/10/17 09:43 Dose: 10 mg Enoxaparin Sodium (Lovenox -) 40 mg SQ DAILY [facility] Last Admin: 04/10/17 09:43 Dose: 40 mg Guaifenesin (Robitussin -) 10 ml PO Q6H PRN Potassium Chloride/Dextrose/Sod Cl (D5-1/2ns+20 Meq Kcl -) 1,000 mls @ 100 mls/ hr IV ASDIR [facility] Last Admin: 04/10/17 12:17 Dose: 100 mls/hr Piperacillin Sod/Tazobactam (Sod 4.5 gm/ Dextrose) 100 mls @ 200 mls/hr IVPB Q8H-IV [facility] PRN Reason: Protocol Last Admin: 04/10/17 09:43 Dose: 200 mls/hr Ondansetron HCl (Zofran Injection) 4 mg IVPB Q6H PRN PRN Reason: NAUSEA AND/OR VOMITING Last Admin: 04/08/17 02:27 Dose: 4 mg Oxycodone HCl (Roxicodone -) 5 mg PO Q4H PRN PRN Reason: PAIN Last Admin: 04/10/17 09:49 Dose: 5 mg Valsartan (Diovan -) 160 mg PO DAILY [facility] Last Admin: 04/10/17 09:43 Dose: 160 mg - Objective Vital Signs: Vital Signs Temperature 99.4 F 04/10/17 06:00 Pulse Rate 93 H 04/10/17 06:00 Respiratory Rate 20 04/10/17 10:00 Blood Pressure 137/79 04/10/17 06:00 O2 Sat by Pulse Oximetry (%) 99 04/10/17 10:00 Constitutional: Yes: No Distress Cardiovascular: Yes: Regular Rate and Rhythm Respiratory: Yes: CTA Bilaterally Gastrointestinal: Yes: Normal Bowel Sounds, Soft, Tenderness, Epigastrium. No: Distention Extremities: Yes: Erythema (decreased) Edema: Yes Edema: RLE: 2+ Labs: CBC, BMP 04/10/17 06:00 04/10/17 06:00 INR, PTT INR 1.43 (0.82-1.09) H 04/07/17 10:59 Problem List - Problems (1) Cellulitis Code(s): L03.90 - CELLULITIS, UNSPECIFIED Qualifiers: Site of cellulitis: extremity Site of cellulitis of extremity: lower extremity Laterality: right Qualified Code(s): L03.115 - Cellulitis of right lower limb (2) Elevated LFTs Code(s): R79.89 - OTHER SPECIFIED ABNORMAL FINDINGS OF BLOOD CHEMISTRY (3) Hypertension Code(s): I10 - ESSENTIAL (PRIMARY) HYPERTENSION Qualifiers: Hypertension type: essential hypertension Qualified Code(s): I10 - Essential (primary) hypertension (4) Sepsis Code(s): A41.9 - SEPSIS, UNSPECIFIED ORGANISM Qualifiers: Sepsis type: sepsis due to unspecified organism Qualified Code(s): A41.9 - Sepsis, unspecified organism (5) 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
[2017-04-10] MEDS: POLYETHYLENE GLYCOL 3350 119 GM BTL PO PRN (13:56)
[2017-04-10 16:30] LABS: URINE APPEARANCE CLEAR; URINE BILIRUBIN NEGATIVE (NEGATIVE); URINE BLOOD NEGATIVE (NEGATIVE); URINE COLOR AMBER; URINE GLUCOSE (UA) NEGATIVE (NEGATIVE); URINE KETONE NEGATIVE (NEGATIVE); URINE LEUK ESTERASE NEGATIVE (NEGATIVE); URINE NITRITE NEGATIVE (NEGATIVE); URINE PROTEIN NEGATIVE (NEGATIVE); URINE UROBILINOGEN 4.0 E.U/dl mg/dL (0.2-1.0)
--- NOTE | 2017-04-10 18:53 | PN ---
GI Progress Note Subjective: patient has mild epigastric pain, no nausea and no vomiting. MRI was done -- limited by motion artifact, noted to have normal CBD and intrahepatic ducts patient continue to hve mild elevationof T. bilirubin - Objective Vital Signs: Vital Signs Temperature 97.7 F 04/10/17 16:30 Pulse Rate 91 H 04/10/17 16:30 Respiratory Rate 18 04/10/17 16:30 Blood Pressure 163/93 04/10/17 16:30 O2 Sat by Pulse Oximetry (%) 99 04/10/17 10:00 Constitutional: Obese Eyes: Yes: Conjunctiva Clear HENT: Yes: Atraumatic Neck: Yes: Supple Cardiovascular: Yes: Regular Rate and Rhythm ...Palpate: Yes: Soft, Tenderness, Epigastium. No: Firm/Rigid, Guarding, Hepatomegaly, Mass, Pulsatile Mass, Splenomegaly, Tenderness Labs: CBC, BMP 04/10/17 06:00 04/10/17 06:00 INR, PTT INR 1.43 (0.82-1.09) H 04/07/17 10:59 Problem List - Problems (1) Elevated LFTs Assessment/Plan: most likely secondary to sepsis R> expect LFTS to improve once sepsis is controlled continue Protonix daily Code(s): R79.89 - OTHER SPECIFIED ABNORMAL FINDINGS OF BLOOD CHEMISTRY
[2017-04-11] MEDS: PIPERACILLIN/TAZOB 4.5 GM 4.5 GM in DEXTROSE 5%-WATER 100 ML IVPB SCH ×3 (02:09→17:34)
[2017-04-11 07:51] LABS: MCH 28.9 pg (25.7-33.7); MCHC 32.5 g/dl (32.0-35.9); MEAN CELL VOLUME 88.8 fl (80-96); MEAN PLT VOLUME 8.4 fl (7.5-11.1); PLATELET COUNT 275 K/MM3 (134-434); RDW 14.7 % (11.9-15.9); WHITE BLOOD COUNT 16.3 K/mm3 (4.0-10.0)
--- NOTE | 2017-04-11 08:03 | PN ---
Progress Note, Physician Chief Complaint: ID Clinical improvement Zosyn - Current Medication List Current Medications: Active Medications Acetaminophen (Tylenol -) 650 mg PO Q6H PRN PRN Reason: FEVER OR PAIN Last Admin: 04/10/17 09:48 Dose: 650 mg Amlodipine Besylate (Norvasc -) 10 mg PO DAILY [facility] Last Admin: 04/10/17 09:43 Dose: 10 mg Enoxaparin Sodium (Lovenox -) 40 mg SQ DAILY [facility] Last Admin: 04/10/17 09:43 Dose: 40 mg Guaifenesin (Robitussin -) 10 ml PO Q6H PRN Potassium Chloride/Dextrose/Sod Cl (D5-1/2ns+20 Meq Kcl -) 1,000 mls @ 100 mls/ hr IV ASDIR [facility] Last Admin: 04/10/17 12:17 Dose: 100 mls/hr Piperacillin Sod/Tazobactam (Sod 4.5 gm/ Dextrose) 100 mls @ 200 mls/hr IVPB Q8H-IV [facility] PRN Reason: Protocol Last Admin: 04/11/17 02:09 Dose: 200 mls/hr Ondansetron HCl (Zofran Injection) 4 mg IVPB Q6H PRN PRN Reason: NAUSEA AND/OR VOMITING Last Admin: 04/08/17 02:27 Dose: 4 mg Oxycodone HCl (Roxicodone -) 5 mg PO Q4H PRN PRN Reason: PAIN Last Admin: 04/10/17 09:49 Dose: 5 mg Polyethylene Glycol (Miralax (For Daily Use) -) 17 gm PO DAILY PRN PRN Reason: CONSTIPATION Last Admin: 04/10/17 13:56 Dose: 17 grams Valsartan (Diovan -) 160 mg PO DAILY [facility] Last Admin: 04/10/17 09:43 Dose: 160 mg - Objective Vital Signs: Vital Signs Temperature 99.5 F 04/11/17 06:00 Pulse Rate 89 04/11/17 06:00 Respiratory Rate 20 04/11/17 06:00 Blood Pressure 132/69 04/11/17 06:00 O2 Sat by Pulse Oximetry (%) 99 04/10/17 21:00 Constitutional: Yes: Well Nourished, No Distress Neck: Yes: WNL, Supple Respiratory: Yes: WNL, Regular, CTA Bilaterally Gastrointestinal: Yes: WNL, Normal Bowel Sounds, Soft. No: Tenderness, Tenderness, Epigastrium Extremities: Yes: Other (Edema less redness ldess abrasions dry not tender) Edema: Yes Labs: CBC, BMP 04/11/17 06:00 INR, PTT INR 1.43 (0.82-1.09) H 04/07/17 10:59 Problem List - Problems (1) Elevated LFTs Code(s): R79.89 - OTHER SPECIFIED ABNORMAL FINDINGS OF BLOOD CHEMISTRY Assessment/Plan Microbiology 04/07/17 11:28 Urine - Urine Clean Catch Urine Culture - Final NO GROWTH OBTAINED 04/07/17 10:59 Blood - Peripheral Venous Blood Culture - Preliminary NO GROWTH OBTAINED AFTER 72 HOURS, INCUBATION TO CONTINUE FOR 2 DAYS. 04/07/17 10:50 Blood - Peripheral Venous Blood Culture - Preliminary NO GROWTH OBTAINED AFTER 72 HOURS, INCUBATION TO CONTINUE FOR 2 DAYS. Laboratory Tests 04/08/17 04/08/17 04/09/17 12:00 15:30 07:35 WBC Hgb Plt Count ESR 121 H BUN Creatinine Creat Clearance w eGFR Random Glucose AST ALT Alkaline Phosphatase Total Protein Albumin CA 19-9 Antigen Hepatitis A IgM Ab Negative Hep Bs Antigen Negative Hep B Core IgM Ab Negative Hepatitis C Ab (EIA) <0.1 HIV 1&2 Antibody Screen Negative HIV P24 Antigen Negative 04/10/17 04/10/17 04/11/17 06:00 06:00 06:00 WBC 16.3 H Hgb 10.7 L Plt Count 275 ESR BUN 7 Creatinine 0.8 Creat Clearance w eGFR > 60 Random Glucose 128 H AST 90 H D ALT 137 H Alkaline Phosphatase 188 H Total Protein 6.2 L Albumin 2.3 L CA 19-9 Antigen 265 H Hepatitis A IgM Ab Hep Bs Antigen Hep B Core IgM Ab Hepatitis C Ab (EIA) HIV 1&2 Antibody Screen HIV P24 Antigen Assessment Sepsis syndrome Severe cellulitis leg improving Ruling out biliary disease vs sepsis related Tumor marker up sed rate too Plan MRI biliary tract Repeat ESR CRP Antibiotics Agnes JEFFREY
[2017-04-11 08:22] LABS: ALBUMIN 2.2 g/dl (3.4-5.0); ANION GAP 9 (8-16); CALCIUM 8.8 mg/dL (8.5-10.1); CO2 25 mmol/L (21-32); GLUCOSE,RANDOM 113 mg/dL (74-106)
[2017-04-11 08:26] LABS: ALK PHOS 194 U/L (45-117); CREATININE 0.7 mg/dL (0.7-1.3); SGOT/AST 93 U/L (15-37); SGPT/ALT 131 U/L (12-78); TOT PROT 6.3 g/dl (6.4-8.2)
--- NOTE | 2017-04-11 08:37 | PN ---
Progress Note, Physician History of Present Illness: Leg feeling better this morning. No n/v, fever, or chills. No dysuria or abdominal pain. No BM in 5days, having flatus. - Current Medication List Current Medications: Active Medications Acetaminophen (Tylenol -) 650 mg PO Q6H PRN PRN Reason: FEVER OR PAIN Last Admin: 04/10/17 09:48 Dose: 650 mg Amlodipine Besylate (Norvasc -) 10 mg PO DAILY [facility] Last Admin: 04/10/17 09:43 Dose: 10 mg Enoxaparin Sodium (Lovenox -) 40 mg SQ DAILY [facility] Last Admin: 04/10/17 09:43 Dose: 40 mg Guaifenesin (Robitussin -) 10 ml PO Q6H PRN Potassium Chloride/Dextrose/Sod Cl (D5-1/2ns+20 Meq Kcl -) 1,000 mls @ 100 mls/ hr IV ASDIR [facility] Last Admin: 04/10/17 12:17 Dose: 100 mls/hr Piperacillin Sod/Tazobactam (Sod 4.5 gm/ Dextrose) 100 mls @ 200 mls/hr IVPB Q8H-IV [facility] PRN Reason: Protocol Last Admin: 04/11/17 02:09 Dose: 200 mls/hr Ondansetron HCl (Zofran Injection) 4 mg IVPB Q6H PRN PRN Reason: NAUSEA AND/OR VOMITING Last Admin: 04/08/17 02:27 Dose: 4 mg Oxycodone HCl (Roxicodone -) 5 mg PO Q4H PRN PRN Reason: PAIN Last Admin: 04/10/17 09:49 Dose: 5 mg Polyethylene Glycol (Miralax (For Daily Use) -) 17 gm PO DAILY PRN PRN Reason: CONSTIPATION Last Admin: 04/10/17 13:56 Dose: 17 grams Valsartan (Diovan -) 160 mg PO DAILY [facility] Last Admin: 04/10/17 09:43 Dose: 160 mg - Objective Vital Signs: Vital Signs Temperature 99.5 F 04/11/17 06:00 Pulse Rate 89 04/11/17 06:00 Respiratory Rate 20 04/11/17 06:00 Blood Pressure 132/69 04/11/17 06:00 O2 Sat by Pulse Oximetry (%) 99 04/10/17 21:00 Constitutional: Yes: No Distress Eyes: Yes: Conjunctiva Clear. No: Sclera Icterus Neck: Yes: Supple. No: Lymphadenopathy Cardiovascular: Yes: Regular Rate and Rhythm. No: Gallop, Murmur Respiratory: Yes: CTA Bilaterally. No: Accessory Muscle Use Gastrointestinal: Yes: Abdomen, Obese, Tenderness, Epigastrium. No: Distention Integumentary: Yes: Erythema (RLE cellulitis, no crepitus, tender to palpation) Labs: CBC, BMP 04/11/17 06:00 04/11/17 06:00 Hepatic Panel Total Bilirubin 2.0 mg/dL (0.2-1.0) H D 04/11/17 06:00 Direct Bilirubin 3.0 mg/dL (0.0-0.2) H 04/09/17 16:00 AST 93 U/L (15-37) H 04/11/17 06:00 ALT 131 U/L (12-78) H 04/11/17 06:00 Alkaline Phosphatase 194 U/L (45-117) H 04/11/17 06:00 Albumin 2.2 g/dl (3.4-5.0) L 04/11/17 06:00 INR 1.43 (0.82-1.09) H 04/07/17 10:59 04/09/17 04/10/17 16:00 06:00 Carcinoembryonic Ag 2.4 CA 19-9 Antigen 265 H - ....Imaging MRI: Other (GB contracted. No MRI evidence of pancreatic mass. no liver mass seen. limited MRCP images due to significant motion however no pancreaticobiliary duct dilation is seen. bilateral renal cysts") Impression/Plan Impression/Plan: 61yo man with severe RLE cellulitis that is gradually improving with Zosyn. Patient was found to have elevated LFTs without clear etiology. MRI/MRCP found no pancreatic mass or pancreaticobiliary duct dilation, however MRCP limited due to motion. Suggest additional abdominal/pelvic CT imaging. #RLE severe cellulitis -Continue Zosyn 4.5g IVPN Q8H -Abdominal/pelvic CT w/o contrast d/w Dr. Agnes Avila MD PGY-1 Visit type - Emergency Visit Emergency Visit: No - New Patient This patient is new to me today: No - Critical Care Critical Care patient: No
[2017-04-11 08:59] LABS: METAMYELOCYTE 1 % (0-2); PLATELET ESTIMATE ADEQUATE (NORMAL)
[2017-04-11] MEDS ORDERED: DEXTROSE 5%-WATER 100 ML IVPB ONE ×3 (10:16→20:37)
[2017-04-11] MEDS ORDERED: PIPERACILLIN/TAZOBACTAM 4.5 GM VIAL IVPB ONE ×3 (10:16→20:37)
[2017-04-11] MEDS: VALSARTAN 160 MG TABLET (UD) PO SCH (10:23)
[2017-04-11] MEDS: ENOXAPARIN NA (PORCINE) 40 MG/0.4 ML DISP.SYRIN SQ SCH (10:23)
[2017-04-11] MEDS: amLODIPine BESYLATE 10 MG TABLET (FP) PO SCH (10:24)
--- NOTE | 2017-04-11 10:37 | PN ---
Progress Note (short form) - Note Progress Note: Pt seen/ examined. chart reviewed feels better wants to take shower. all f/u noted decreased leg swelling/ reddness denies abd pain. Vital Signs Temp 99.5 F 04/11/17 06:00 Pulse 89 04/11/17 06:00 Resp 20 04/11/17 06:00 BP 132/69 04/11/17 06:00 Pulse Ox 99 04/10/17 21:00 Intake & Output 04/10/17 04/10/17 04/11/17 11:59 23:59 11:59 Intake Total 1550 2950 Output Total 2400 1850 2000 Balance -850 1100 -2000 Intake: IV 2200 D5-1/2Ns+20 Meq KCl - 1, 2200 000 ml @ 100 mls/hr IV ASDIR RUBÉN Rx#:[id number] IVPB 300 Oral 1550 450 Output: Urine 2400 1850 2000 Void 2400 1850 2000 Other: Voiding Method Urinal Urinal Active Medications Acetaminophen (Tylenol -) 650 mg PO Q6H PRN PRN Reason: FEVER OR PAIN Last Admin: 04/10/17 09:48 Dose: 650 mg Amlodipine Besylate (Norvasc -) 10 mg PO DAILY [facility] Last Admin: 04/11/17 10:24 Dose: 10 mg Enoxaparin Sodium (Lovenox -) 40 mg SQ DAILY [facility] Last Admin: 04/11/17 10:23 Dose: 40 mg Guaifenesin (Robitussin -) 10 ml PO Q6H PRN Potassium Chloride/Dextrose/Sod Cl (D5-1/2ns+20 Meq Kcl -) 1,000 mls @ 100 mls/ hr IV ASDIR RUBÉN Last Admin: 04/10/17 12:17 Dose: 100 mls/hr Piperacillin Sod/Tazobactam (Sod 4.5 gm/ Dextrose) 100 mls @ 200 mls/hr IVPB Q8H-IV RUB[facility]N PRN Reason: Protocol Last Admin: 04/11/17 10:23 Dose: 200 mls/hr Ondansetron HCl (Zofran Injection) 4 mg IVPB Q6H PRN PRN Reason: NAUSEA AND/OR VOMITING Last Admin: 04/08/17 02:27 Dose: 4 mg Oxycodone HCl (Roxicodone -) 5 mg PO Q4H PRN PRN Reason: PAIN Last Admin: 04/10/17 09:49 Dose: 5 mg Polyethylene Glycol (Miralax (For Daily Use) -) 17 gm PO DAILY PRN PRN Reason: CONSTIPATION Last Admin: 04/10/17 13:56 Dose: 17 grams Valsartan (Diovan -) 160 mg PO DAILY [facility] Last Admin: 04/11/17 10:23 Dose: 160 mg CBC,CMP WBC 16.3 K/mm3 (4.0-10.0) H 04/11/17 06:00 RBC 3.70 M/mm3 (4.00-5.60) L 04/11/17 06:00 Hgb 10.7 GM/dL (11.7-16.9) L 04/11/17 06:00 Hct 32.9 % (35.4-49) L 04/11/17 06:00 MCV 88.8 fl (80-96) 04/11/17 06:00 MCH 28.9 pg (25.7-33.7) 04/11/17 06:00 MCHC 32.5 g/dl (32.0-35.9) 04/11/17 06:00 RDW 14.7 % (11.9-15.9) 04/11/17 06:00 Plt Count 275 K/MM3 (134-434) 04/11/17 06:00 MPV 8.4 fl (7.5-11.1) 04/11/17 06:00 Neutrophils % 64.0 % (42.8-82.8) 04/11/17 06:00 Lymphocytes % 15.0 % (8-40) 04/11/17 06:00 Monocytes % 7.0 % (3.8-10.2) 04/11/17 06:00 Eosinophils % 2.0 % (0-4.5) 04/11/17 06:00 Basophils % 0.0 % (0-2.0) 04/09/17 07:35 Band Neutrophils 11.0 % (0-10) H D 04/11/17 06:00 Metamyelocytes 1 % (0-2) D 04/11/17 06:00 Myelocytes 1 % (0-2) D 04/10/17 06:00 Nucleated RBCs 1 % (0-0) H 04/10/17 06:00 Differential Comment Manual diff done 04/10/17 06:00 Reactive Lymphocytes 1 % (0-80) 04/11/17 06:00 Platelet Estimate Adequate (NORMAL) 04/11/17 06:00 Platelet Comment No clumping noted 04/11/17 06:00 ESR 121 mm/hr (0-20) H 04/09/17 07:35 Sodium 139 mmol/L (136-145) 04/11/17 06:00 Potassium 4.0 mmol/L (3.5-5.1) 04/11/17 06:00 Chloride 105 mmol/L (98-107) 04/11/17 06:00 Carbon Dioxide 25 mmol/L (21-32) 04/11/17 06:00 Anion Gap 9 (8-16) 04/11/17 06:00 BUN 7 mg/dL (7-18) 04/11/17 06:00 Creatinine 0.7 mg/dL (0.7-1.3) 04/11/17 06:00 Creat Clearance w eGFR > 60 (>60) 04/11/17 06:00 Random Glucose 113 mg/dL (74-106) H 04/11/17 06:00 Lactic Acid 2.9 mmol/L (0.4-2.0) H* 04/07/17 10:59 Calcium 8.8 mg/dL (8.5-10.1) 04/11/17 06:00 Total Bilirubin 2.0 mg/dL (0.2-1.0) H D 04/11/17 06:00 Direct Bilirubin 3.0 mg/dL (0.0-0.2) H 04/09/17 16:00 AST 93 U/L (15-37) H 04/11/17 06:00 ALT 131 U/L (12-78) H 04/11/17 06:00 Alkaline Phosphatase 194 U/L (45-117) H 04/11/17 06:00 Creatine Kinase 70 IU/L (39-308) 04/08/17 15:30 C-Reactive Protein 38.7 MG/DL (0.00-0.3) H 04/08/17 15:30 Total Protein 6.3 g/dl (6.4-8.2) L 04/11/17 06:00 Albumin 2.2 g/dl (3.4-5.0) L 04/11/17 06:00 Carcinoembryonic Ag 2.4 ng/mL (0.0-4.7) 04/09/17 16:00 CA 19-9 Antigen 265 U/mL (0-35) H 04/10/17 06:00 Microbiology 04/07/17 10:59 Blood Culture - Preliminary Blood - Peripheral Venous NO GROWTH OBTAINED AFTER 72 HOURS, INCUBATION TO CONTINUE FOR 2 DAYS. 04/07/17 10:50 Blood Culture - Preliminary Blood - Peripheral Venous NO GROWTH OBTAINED AFTER 72 HOURS, INCUBATION TO CONTINUE FOR 2 DAYS. Physical Exam. Constitutional: Yes: No Distress/ comfortable Cardiovascular: Yes: Regular Rate and Rhythm Respiratory: Yes: CTA Bilaterally Gastrointestinal: Yes: Normal Bowel Sounds, Soft, Tenderness, Epigastrium. No: Distention Extremities: Yes: Erythema (decreased) Edema: Yes- decreased Assessment/Plan decreased erythema contunue abx LFT trending down GI eval noted/ appreciated Hepatitis profile negative HIV negative mri-- no pancreatic mass-- ca - 19-9 elevated gi on case. may shower will follow discussed with nursing staff. Problem List - Problems (1) Cellulitis Code(s): L03.90 - CELLULITIS, UNSPECIFIED Qualifiers: Site of cellulitis: extremity Site of cellulitis of extremity: lower extremity Laterality: right Qualified Code(s): L03.115 - Cellulitis of right lower limb (2) Sepsis Code(s): A41.9 - SEPSIS, UNSPECIFIED ORGANISM Qualifiers: Sepsis type: sepsis due to unspecified organism Qualified Code(s): A41.9 - Sepsis, unspecified organism (3) Hypertension Code(s): I10 - ESSENTIAL (PRIMARY) HYPERTENSION Qualifiers: Hypertension type: essential hypertension Qualified Code(s): I10 - Essential (primary) hypertension (4) Elevated LFTs Code(s): R79.89 - OTHER SPECIFIED ABNORMAL FINDINGS OF BLOOD CHEMISTRY
[2017-04-11] MEDS: D5-1/2NS+20 MEQ KCL - 1,000 ML IV SCH (17:34)
--- NOTE | 2017-04-11 18:59 | PN ---
GI Progress Note Subjective: denies abdominal pain , lfts down war trend - Objective Vital Signs: Vital Signs Temperature 98.7 F 04/11/17 15:02 Pulse Rate 90 04/11/17 15:02 Respiratory Rate 20 04/11/17 15:02 Blood Pressure 156/86 04/11/17 15:02 O2 Sat by Pulse Oximetry (%) 99 04/11/17 09:00 Constitutional: Well Nourished Eyes: Yes: Conjunctiva Clear HENT: Yes: Atraumatic Neck: Yes: Supple Cardiovascular: Yes: Regular Rate and Rhythm Respiratory: Yes: CTA Bilaterally ...Palpate: Yes: Soft. No: Firm/Rigid, Guarding, Hepatomegaly, Mass, Pulsatile Mass, Splenomegaly, Tenderness Labs: CBC, BMP 04/11/17 06:00 04/11/17 06:00 INR, PTT INR 1.43 (0.82-1.09) H 04/07/17 10:59 Problem List - Problems (1) Elevated LFTs Assessment/Plan: most likely secondary to sepsis, doubt bliaRY DISEASE R> downward trend construe to closely monitor cellulitis consider repeat ct to r/o soft tissue extension Code(s): R79.89 - OTHER SPECIFIED ABNORMAL FINDINGS OF BLOOD CHEMISTRY
[2017-04-12] MEDS: D5-1/2NS+20 MEQ KCL - 1,000 ML IV SCH ×2 (02:16→17:55)
[2017-04-12] MEDS: PIPERACILLIN/TAZOB 4.5 GM 4.5 GM in DEXTROSE 5%-WATER 100 ML IVPB SCH ×3 (02:16→17:56)
--- NOTE | 2017-04-12 08:39 | PN ---
Progress Note, Physician Chief Complaint: ID Still he does not feel himself says he is weak Lucinasyn Fevers have been down since admission NO N/V - Current Medication List Current Medications: Active Medications Acetaminophen (Tylenol -) 650 mg PO Q6H PRN PRN Reason: FEVER OR PAIN Last Admin: 04/10/17 09:48 Dose: 650 mg Amlodipine Besylate (Norvasc -) 10 mg PO DAILY [facility] Last Admin: 04/11/17 10:24 Dose: 10 mg Enoxaparin Sodium (Lovenox -) 40 mg SQ DAILY [facility] Last Admin: 04/11/17 10:23 Dose: 40 mg Guaifenesin (Robitussin -) 10 ml PO Q6H PRN Potassium Chloride/Dextrose/Sod Cl (D5-1/2ns+20 Meq Kcl -) 1,000 mls @ 100 mls/ hr IV ASDIR RUBÉN Last Admin: 04/12/17 02:16 Dose: 100 mls/hr Piperacillin Sod/Tazobactam (Sod 4.5 gm/ Dextrose) 100 mls @ 200 mls/hr IVPB Q8H-IV RUBÉN PRN Reason: Protocol Last Admin: 04/12/17 02:16 Dose: 200 mls/hr Ondansetron HCl (Zofran Injection) 4 mg IVPB Q6H PRN PRN Reason: NAUSEA AND/OR VOMITING Last Admin: 04/08/17 02:27 Dose: 4 mg Oxycodone HCl (Roxicodone -) 5 mg PO Q4H PRN PRN Reason: PAIN Last Admin: 04/10/17 09:49 Dose: 5 mg Polyethylene Glycol (Miralax (For Daily Use) -) 17 gm PO DAILY PRN PRN Reason: CONSTIPATION Last Admin: 04/10/17 13:56 Dose: 17 grams Valsartan (Diovan -) 160 mg PO DAILY [facility] Last Admin: 04/11/17 10:23 Dose: 160 mg - Objective Vital Signs: Vital Signs Temperature 98.2 F 04/12/17 02:20 Pulse Rate 88 04/12/17 02:20 Respiratory Rate 20 04/12/17 02:20 Blood Pressure 160/80 04/12/17 02:20 O2 Sat by Pulse Oximetry (%) 99 04/11/17 21:00 Constitutional: Yes: Well Nourished, No Distress HENT: Yes: WNL, Atraumatic Neck: Yes: WNL, Supple Cardiovascular: Yes: S1, S2 Respiratory: Yes: WNL, Regular, CTA Bilaterally Gastrointestinal: Yes: WNL, Normal Bowel Sounds, Soft. No: Tenderness, Tenderness, Epigastrium Extremities: Yes: Other (Red swollen superficicial ski necrosis some fluid appreciated anteriorly small ulcerations calf) Labs: CBC, BMP 04/11/17 06:00 04/11/17 06:00 INR, PTT INR 1.43 (0.82-1.09) H 04/07/17 10:59 Problem List - Problems (1) Elevated LFTs Code(s): R79.89 - OTHER SPECIFIED ABNORMAL FINDINGS OF BLOOD CHEMISTRY Assessment/Plan Laboratory Tests 04/11/17 06:00 WBC 16.3 H Hgb 10.7 L Hct 32.9 L Plt Count 275 Band Neutrophils 11.0 H D Assessment Necrotizing celllulitis ? Group A strep Improvement seem very slow at this time WBC remains elevated Plan Continue Zosyn Add Clindamycin given lack of progress for MRSA and toxin coverage Agnes JEFFREY
[2017-04-12] MEDS ORDERED: PIPERACILLIN/TAZOBACTAM 4.5 GM VIAL IVPB ONE ×3 (09:40→20:04)
[2017-04-12] MEDS ORDERED: PT OWN MED DRAWER 7, Y5N ONE (09:40)
[2017-04-12] MEDS ORDERED: DEXTROSE 5%-WATER 100 ML IVPB ONE ×3 (09:40→20:06)
[2017-04-12] MEDS: VALSARTAN 160 MG TABLET (UD) PO SCH (09:46)
[2017-04-12] MEDS: amLODIPine BESYLATE 10 MG TABLET (FP) PO SCH (09:46)
[2017-04-12] MEDS: ENOXAPARIN NA (PORCINE) 40 MG/0.4 ML DISP.SYRIN SQ SCH (09:46)
[2017-04-12] MEDS: CLINDAMYCIN 600MG PREMIX IVPB 50 ML IVPB SCH ×3 (09:46→22:02)
[2017-04-12] MEDS: POLYETHYLENE GLYCOL 3350 119 GM BTL PO PRN (13:04)
--- NOTE | 2017-04-12 20:10 | PN ---
Progress Note, Physician Chief Complaint: Rt leg cellulitis is better Decreased fever - Current Medication List Current Medications: Active Medications Acetaminophen (Tylenol -) 650 mg PO Q6H PRN PRN Reason: FEVER OR PAIN Last Admin: 04/10/17 09:48 Dose: 650 mg Amlodipine Besylate (Norvasc -) 10 mg PO DAILY [facility] Last Admin: 04/12/17 09:46 Dose: 10 mg Enoxaparin Sodium (Lovenox -) 40 mg SQ DAILY [facility] Last Admin: 04/12/17 09:46 Dose: 40 mg Guaifenesin (Robitussin -) 10 ml PO Q6H PRN Potassium Chloride/Dextrose/Sod Cl (D5-1/2ns+20 Meq Kcl -) 1,000 mls @ 100 mls/ hr IV ASDIR [facility] Last Admin: 04/12/17 17:55 Dose: 100 mls/hr Piperacillin Sod/Tazobactam (Sod 4.5 gm/ Dextrose) 100 mls @ 200 mls/hr IVPB Q8H-IV RUBÉN PRN Reason: Protocol Last Admin: 04/12/17 17:56 Dose: 200 mls/hr Clindamycin Phosphate (Cleocin 600 Mg Premix Ivpb -) 50 mls @ 100 mls/hr IVPB Q6H-IV RUBÉN Last Admin: 04/12/17 15:54 Dose: 100 mls/hr Ondansetron HCl (Zofran Injection) 4 mg IVPB Q6H PRN PRN Reason: NAUSEA AND/OR VOMITING Last Admin: 04/08/17 02:27 Dose: 4 mg Oxycodone HCl (Roxicodone -) 5 mg PO Q4H PRN PRN Reason: PAIN Last Admin: 04/10/17 09:49 Dose: 5 mg Polyethylene Glycol (Miralax (For Daily Use) -) 17 gm PO DAILY PRN PRN Reason: CONSTIPATION Last Admin: 04/12/17 13:04 Dose: 17 grams Valsartan (Diovan -) 160 mg PO DAILY [facility] Last Admin: 04/12/17 09:46 Dose: 160 mg - Objective Vital Signs: Vital Signs Temperature 98.0 F 04/12/17 15:11 Pulse Rate 85 04/12/17 15:11 Respiratory Rate 18 04/12/17 15:11 Blood Pressure 150/87 04/12/17 15:11 O2 Sat by Pulse Oximetry (%) 98 04/12/17 09:00 Constitutional: Yes: Well Nourished, No Distress Eyes: Yes: Conjunctiva Clear, EOM Intact HENT: Yes: Atraumatic, Normocephalic Neck: Yes: Supple, Trachea Midline Cardiovascular: Yes: Regular Rate and Rhythm, S1, S2 Respiratory: Yes: Regular, CTA Bilaterally Gastrointestinal: Yes: Normal Bowel Sounds, Soft Musculoskeletal: Yes: WNL Extremities: Yes: Other (Rt Lower leg is relatively better but still red and swelling present) Edema: Yes (Rt leg oedema with cellul) Neurological: Yes: Alert, Oriented, Cran Nerves II-XII Intact Labs: CBC, BMP 04/11/17 06:00 04/11/17 06:00 INR, PTT INR 1.43 (0.82-1.09) H 04/07/17 10:59 Problem List - Problems (1) Cellulitis Code(s): L03.90 - CELLULITIS, UNSPECIFIED Qualifiers: Site of cellulitis: extremity Site of cellulitis of extremity: lower extremity Laterality: right Qualified Code(s): L03.115 - Cellulitis of right lower limb (2) Elevated LFTs Code(s): R79.89 - OTHER SPECIFIED ABNORMAL FINDINGS OF BLOOD CHEMISTRY (3) Hypertension Code(s): I10 - ESSENTIAL (PRIMARY) HYPERTENSION Qualifiers: Hypertension type: essential hypertension Qualified Code(s): I10 - Essential (primary) hypertension (4) Sepsis Code(s): A41.9 - SEPSIS, UNSPECIFIED ORGANISM Qualifiers: Sepsis type: sepsis due to unspecified organism Qualified Code(s): A41.9 - Sepsis, unspecified organism
[2017-04-13] MEDS: PIPERACILLIN/TAZOB 4.5 GM 4.5 GM in DEXTROSE 5%-WATER 100 ML IVPB SCH ×3 (01:22→17:35)
[2017-04-13] MEDS: CLINDAMYCIN 600MG PREMIX IVPB 50 ML IVPB SCH ×4 (02:31→21:43)
[2017-04-13] MEDS ORDERED: DEXTROSE 5%-WATER 100 ML IVPB ONE ×3 (10:01→21:19)
[2017-04-13] MEDS ORDERED: PIPERACILLIN/TAZOBACTAM 4.5 GM VIAL IVPB ONE ×3 (10:01→21:19)
[2017-04-13] MEDS: ENOXAPARIN NA (PORCINE) 40 MG/0.4 ML DISP.SYRIN SQ SCH (10:03)
[2017-04-13] MEDS: VALSARTAN 160 MG TABLET (UD) PO SCH (10:03)
[2017-04-13] MEDS: amLODIPine BESYLATE 10 MG TABLET (FP) PO SCH (10:03)
[2017-04-13] MEDS: D5-1/2NS+20 MEQ KCL - 1,000 ML IV SCH ×2 (10:03→17:34)
[2017-04-13] MEDS: POLYETHYLENE GLYCOL 3350 119 GM BTL PO PRN (10:03)
--- NOTE | 2017-04-13 12:56 | PN ---
Progress Note, Physician History of Present Illness: Complains of R LE pain Clindamycin added to zosyn No fever/ chills Temps down Afebrile WBC remains elevated - Current Medication List Current Medications: Active Medications Acetaminophen (Tylenol -) 650 mg PO Q6H PRN PRN Reason: FEVER OR PAIN Last Admin: 04/10/17 09:48 Dose: 650 mg Amlodipine Besylate (Norvasc -) 10 mg PO DAILY [facility] Last Admin: 04/13/17 10:03 Dose: 10 mg Enoxaparin Sodium (Lovenox -) 40 mg SQ DAILY [facility] Last Admin: 04/13/17 10:03 Dose: 40 mg Guaifenesin (Robitussin -) 10 ml PO Q6H PRN Potassium Chloride/Dextrose/Sod Cl (D5-1/2ns+20 Meq Kcl -) 1,000 mls @ 100 mls/ hr IV ASDIR RUBÉN Last Admin: 04/13/17 10:03 Dose: 100 mls/hr Piperacillin Sod/Tazobactam (Sod 4.5 gm/ Dextrose) 100 mls @ 200 mls/hr IVPB Q8H-IV RUBÉN PRN Reason: Protocol Last Admin: 04/13/17 10:03 Dose: 200 mls/hr Clindamycin Phosphate (Cleocin 600 Mg Premix Ivpb -) 50 mls @ 100 mls/hr IVPB Q6H-IV RUBÉN Last Admin: 04/13/17 10:03 Dose: 100 mls/hr Ondansetron HCl (Zofran Injection) 4 mg IVPB Q6H PRN PRN Reason: NAUSEA AND/OR VOMITING Last Admin: 04/08/17 02:27 Dose: 4 mg Oxycodone HCl (Roxicodone -) 5 mg PO Q4H PRN PRN Reason: PAIN Last Admin: 04/10/17 09:49 Dose: 5 mg Polyethylene Glycol (Miralax (For Daily Use) -) 17 gm PO DAILY PRN PRN Reason: CONSTIPATION Last Admin: 04/13/17 10:03 Dose: 17 grams Valsartan (Diovan -) 160 mg PO DAILY [facility] Last Admin: 04/13/17 10:03 Dose: 160 mg - Objective Vital Signs: Vital Signs Temperature 99.1 F 04/13/17 08:50 Pulse Rate 82 04/13/17 08:50 Respiratory Rate 18 08/12/17 08:50 Blood Pressure 143/89 04/13/17 08:50 O2 Sat by Pulse Oximetry (%) 98 04/12/17 21:00 Constitutional: Yes: No Distress Eyes: Yes: Conjunctiva Clear Cardiovascular: Yes: Regular Rate and Rhythm, S1, S2 Respiratory: Yes: CTA Bilaterally Gastrointestinal: Yes: Normal Bowel Sounds, Soft. No: Tenderness Extremities: Yes: Other (R LE swollen, erythematous + blister formation, pretibial area) Labs: CBC, BMP 04/11/17 06:00 04/11/17 06:00 INR, PTT INR 1.43 (0.82-1.09) H 04/07/17 10:59 Assessment/Plan Necrotizing cellulitis R LE Leukocytosis Continue zosyn/ clindamycin Elevation, analgesics
--- NOTE | 2017-04-13 13:06 | PN ---
Progress Note (short form) - Note Progress Note: pt seen/ examined feels ok mild pain in leg - otherwise ok. lle- now blister forming afebrile denies abd pain. Vital Signs Temp 99.1 F 04/13/17 08:50 Pulse 82 04/13/17 08:50 Resp 18 04/13/17 08:50 BP 143/89 04/13/17 08:50 Pulse Ox 98 04/12/17 21:00 Intake & Output 04/12/17 04/13/17 04/13/17 23:59 11:59 23:59 Intake Total 2300 Output Total 2350 Balance -50 Intake: IV 1200 D5-1/2Ns+20 Meq KCl - 1, 1200 000 ml @ 100 mls/hr IV ASDIR RUBÉN Rx#:[id number] IVPB 300 Oral 800 Output: Urine 2350 Void 2350 Other: Voiding Method Urinal Urinal Active Medications Acetaminophen (Tylenol -) 650 mg PO Q6H PRN PRN Reason: FEVER OR PAIN Last Admin: 04/10/17 09:48 Dose: 650 mg Amlodipine Besylate (Norvasc -) 10 mg PO DAILY [facility] Last Admin: 04/13/17 10:03 Dose: 10 mg Enoxaparin Sodium (Lovenox -) 40 mg SQ DAILY [facility] Last Admin: 04/13/17 10:03 Dose: 40 mg Guaifenesin (Robitussin -) 10 ml PO Q6H PRN Potassium Chloride/Dextrose/Sod Cl (D5-1/2ns+20 Meq Kcl -) 1,000 mls @ 100 mls/ hr IV ASDIR RUBÉN Last Admin: 04/13/17 10:03 Dose: 100 mls/hr Piperacillin Sod/Tazobactam (Sod 4.5 gm/ Dextrose) 100 mls @ 200 mls/hr IVPB Q8H-IV RUBÉN PRN Reason: Protocol Last Admin: 04/13/17 10:03 Dose: 200 mls/hr Clindamycin Phosphate (Cleocin 600 Mg Premix Ivpb -) 50 mls @ 100 mls/hr IVPB Q6H-IV [facility] Last Admin: 04/13/17 10:03 Dose: 100 mls/hr Ondansetron HCl (Zofran Injection) 4 mg IVPB Q6H PRN PRN Reason: NAUSEA AND/OR VOMITING Last Admin: 04/08/17 02:27 Dose: 4 mg Oxycodone HCl (Roxicodone -) 5 mg PO Q4H PRN PRN Reason: PAIN Last Admin: 04/10/17 09:49 Dose: 5 mg Polyethylene Glycol (Miralax (For Daily Use) -) 17 gm PO DAILY PRN PRN Reason: CONSTIPATION Last Admin: 04/13/17 10:03 Dose: 17 grams Valsartan (Diovan -) 160 mg PO DAILY [facility] Last Admin: 04/13/17 10:03 Dose: 160 mg CBC, BMP 04/11/17 06:00 04/11/17 06:00 Physical Exam. Constitutional: Yes: No Distress/ comfortable Cardiovascular: Yes: Regular Rate and Rhythm Respiratory: Yes: CTA Bilaterally Gastrointestinal: Yes: Normal Bowel Sounds, Soft, Tenderness, Epigastrium. No: Distention Extremities: Yes: Erythema / blister Edema: Yes- decreased Assessment/Plan nectrozing cellulitis contunue abx- clinda added continue present care f/u labs will follow Problem List - Problems (1) Cellulitis Code(s): L03.90 - CELLULITIS, UNSPECIFIED Qualifiers: Site of cellulitis: extremity Site of cellulitis of extremity: lower extremity Laterality: right Qualified Code(s): L03.115 - Cellulitis of right lower limb (2) Sepsis Code(s): A41.9 - SEPSIS, UNSPECIFIED ORGANISM Qualifiers: Sepsis type: sepsis due to unspecified organism Qualified Code(s): A41.9 - Sepsis, unspecified organism (3) Hypertension Code(s): I10 - ESSENTIAL (PRIMARY) HYPERTENSION Qualifiers: Hypertension type: essential hypertension Qualified Code(s): I10 - Essential (primary) hypertension (4) Elevated LFTs Code(s): R79.89 - OTHER SPECIFIED ABNORMAL FINDINGS OF BLOOD CHEMISTRY
[2017-04-14] MEDS: PIPERACILLIN/TAZOB 4.5 GM 4.5 GM in DEXTROSE 5%-WATER 100 ML IVPB SCH ×2 (01:46→10:32)
[2017-04-14] MEDS: CLINDAMYCIN 600MG PREMIX IVPB 50 ML IVPB SCH ×4 (03:03→21:43)
[2017-04-14 08:09] LABS: MCH 29.2 pg (25.7-33.7); MCHC 32.8 g/dl (32.0-35.9); MEAN CELL VOLUME 89.1 fl (80-96); MEAN PLT VOLUME 8.2 fl (7.5-11.1); PLATELET COUNT 409 K/MM3 (134-434); RDW 14.9 % (11.9-15.9); WHITE BLOOD COUNT 13.8 K/mm3 (4.0-10.0)
[2017-04-14 08:35] LABS: ALBUMIN 2.5 g/dl (3.4-5.0); ANION GAP 8 (8-16); CO2 26 mmol/L (21-32); GLUCOSE,RANDOM 181 mg/dL (74-106); SGOT/AST 27 U/L (15-37); SGPT/ALT 80 U/L (12-78)
[2017-04-14 08:37] LABS: ALK PHOS 168 U/L (45-117); TOT PROT 7.3 g/dl (6.4-8.2)
[2017-04-14] MEDS ORDERED: DEXTROSE 5%-WATER 100 ML IVPB ONE (10:24)
[2017-04-14] MEDS ORDERED: PIPERACILLIN/TAZOBACTAM 4.5 GM VIAL IVPB ONE (10:24)
[2017-04-14] MEDS: ENOXAPARIN NA (PORCINE) 40 MG/0.4 ML DISP.SYRIN SQ SCH (10:34)
[2017-04-14] MEDS: D5-1/2NS+20 MEQ KCL - 1,000 ML IV SCH ×2 (10:36→14:02)
[2017-04-14] MEDS: amLODIPine BESYLATE 10 MG TABLET (FP) PO SCH (10:36)
[2017-04-14] MEDS: VALSARTAN 160 MG TABLET (UD) PO SCH (10:36)
[2017-04-14] MEDS: oxyCODONE HCL 5 MG TABLET PO PRN (10:43)
[2017-04-14 12:10] LABS: METAMYELOCYTE 1 % (0-2); PLATELET ESTIMATE ADEQUATE (NORMAL)
--- NOTE | 2017-04-14 13:16 | PN ---
Progress Note (short form) - Note Progress Note: pt seen/ examined feels better mild pain in leg - afebrile denies abd pain. LFTs trending down Vital Signs Temp 98.3 F 04/14/17 06:43 Pulse 79 04/14/17 06:43 Resp 20 04/14/17 06:43 BP 106/72 04/14/17 06:43 Pulse Ox 98 04/13/17 21:00 Intake & Output 04/13/17 04/14/17 04/14/17 23:59 11:59 23:59 Intake Total 520 1250 Output Total 1400 1500 Balance -880 -250 Intake: IV 1000 D5-1/2Ns+20 Meq KCl - 1, 1000 000 ml @ 100 mls/hr IV ASDIR RUBÉN Rx#:[id number] IVPB 250 Oral 520 Output: Urine 1400 1500 Void 1400 1500 Other: Voiding Method Urinal Urinal Active Medications Acetaminophen (Tylenol -) 650 mg PO Q6H PRN PRN Reason: FEVER OR PAIN Last Admin: 04/10/17 09:48 Dose: 650 mg Amlodipine Besylate (Norvasc -) 10 mg PO DAILY [facility] Last Admin: 04/13/17 10:03 Dose: 10 mg Enoxaparin Sodium (Lovenox -) 40 mg SQ DAILY [facility] Last Admin: 04/13/17 10:03 Dose: 40 mg Guaifenesin (Robitussin -) 10 ml PO Q6H PRN Potassium Chloride/Dextrose/Sod Cl (D5-1/2ns+20 Meq Kcl -) 1,000 mls @ 100 mls/ hr IV ASDIR RUBÉN Last Admin: 04/13/17 10:03 Dose: 100 mls/hr Piperacillin Sod/Tazobactam (Sod 4.5 gm/ Dextrose) 100 mls @ 200 mls/hr IVPB Q8H-IV RUBÉN PRN Reason: Protocol Last Admin: 04/13/17 10:03 Dose: 200 mls/hr Clindamycin Phosphate (Cleocin 600 Mg Premix Ivpb -) 50 mls @ 100 mls/hr IVPB Q6H-IV [facility] Last Admin: 04/13/17 10:03 Dose: 100 mls/hr Ondansetron HCl (Zofran Injection) 4 mg IVPB Q6H PRN PRN Reason: NAUSEA AND/OR VOMITING Last Admin: 04/08/17 02:27 Dose: 4 mg Oxycodone HCl (Roxicodone -) 5 mg PO Q4H PRN PRN Reason: PAIN Last Admin: 04/10/17 09:49 Dose: 5 mg Polyethylene Glycol (Miralax (For Daily Use) -) 17 gm PO DAILY PRN PRN Reason: CONSTIPATION Last Admin: 04/13/17 10:03 Dose: 17 grams Valsartan (Diovan -) 160 mg PO DAILY [facility] Last Admin: 04/13/17 10:03 Dose: 160 mg CBC, BMP 04/14/17 06:30 04/14/17 08:19 Physical Exam. Constitutional: Yes: No Distress/ comfortable Cardiovascular: Yes: Regular Rate and Rhythm Respiratory: Yes: CTA Bilaterally Gastrointestinal: Yes: Normal Bowel Sounds, Soft, Tenderness, Epigastrium. No: Distention Extremities: Yes: Erythema / blister--improved from yesterday Edema: Yes- decreased Assessment/Plan nectrozing cellulitis contunue abx- clinda added ESR remains persistently high LFTs better continue present care Will follow Problem List - Problems (1) Cellulitis Code(s): L03.90 - CELLULITIS, UNSPECIFIED Qualifiers: Site of cellulitis: extremity Site of cellulitis of extremity: lower extremity Laterality: right Qualified Code(s): L03.115 - Cellulitis of right lower limb (2) Sepsis Code(s): A41.9 - SEPSIS, UNSPECIFIED ORGANISM Qualifiers: Sepsis type: sepsis due to unspecified organism Qualified Code(s): A41.9 - Sepsis, unspecified organism (3) Hypertension Code(s): I10 - ESSENTIAL (PRIMARY) HYPERTENSION Qualifiers: Hypertension type: essential hypertension Qualified Code(s): I10 - Essential (primary) hypertension (4) Elevated LFTs Code(s): R79.89 - OTHER SPECIFIED ABNORMAL FINDINGS OF BLOOD CHEMISTRY
--- NOTE | 2017-04-14 14:31 | PN ---
Progress Note, Physician History of Present Illness: Reports less leg pain No fever/ chills Tolerating antibiotics - Current Medication List Current Medications: Active Medications Acetaminophen (Tylenol -) 650 mg PO Q6H PRN PRN Reason: FEVER OR PAIN Last Admin: 04/10/17 09:48 Dose: 650 mg Amlodipine Besylate (Norvasc -) 10 mg PO DAILY [facility] Last Admin: 04/14/17 10:36 Dose: 10 mg Enoxaparin Sodium (Lovenox -) 40 mg SQ DAILY [facility] Last Admin: 04/14/17 10:34 Dose: 40 mg Guaifenesin (Robitussin -) 10 ml PO Q6H PRN Potassium Chloride/Dextrose/Sod Cl (D5-1/2ns+20 Meq Kcl -) 1,000 mls @ 100 mls/ hr IV ASDIR [facility] Last Admin: 04/14/17 14:02 Dose: Not Given Piperacillin Sod/Tazobactam (Sod 4.5 gm/ Dextrose) 100 mls @ 200 mls/hr IVPB Q8H-IV [facility] PRN Reason: Protocol Last Admin: 04/14/17 10:32 Dose: 200 mls/hr Clindamycin Phosphate (Cleocin 600 Mg Premix Ivpb -) 50 mls @ 100 mls/hr IVPB Q6H-IV [facility] Last Admin: 04/14/17 10:30 Dose: 100 mls/hr Ondansetron HCl (Zofran Injection) 4 mg IVPB Q6H PRN PRN Reason: NAUSEA AND/OR VOMITING Last Admin: 04/08/17 02:27 Dose: 4 mg Oxycodone HCl (Roxicodone -) 5 mg PO Q4H PRN PRN Reason: PAIN Last Admin: 04/14/17 10:43 Dose: 5 mg Polyethylene Glycol (Miralax (For Daily Use) -) 17 gm PO DAILY PRN PRN Reason: CONSTIPATION Last Admin: 04/13/17 10:03 Dose: 17 grams Valsartan (Diovan -) 160 mg PO DAILY [facility] Last Admin: 04/14/17 10:36 Dose: 160 mg - Objective Vital Signs: Vital Signs Temperature 98.9 F 04/14/17 13:49 Pulse Rate 79 04/14/17 13:49 Respiratory Rate 20 04/14/17 13:49 Blood Pressure 148/89 04/14/17 13:49 O2 Sat by Pulse Oximetry (%) 98 04/14/17 09:00 Constitutional: Yes: No Distress Eyes: Yes: Conjunctiva Clear Cardiovascular: Yes: Regular Rate and Rhythm, S1, S2 Respiratory: Yes: CTA Bilaterally Gastrointestinal: Yes: Normal Bowel Sounds, Soft. No: Tenderness Extremities: Yes: Other (decreased LE swelling/ erythema/ warmth) Labs: CBC, BMP 04/14/17 06:30 04/14/17 08:19 INR, PTT INR 1.43 (0.82-1.09) H 04/07/17 10:59 Assessment/Plan Necrotizing cellulitis R LE Leukocytosis Continue zosyn/ clindamycin Elevation, analgesics
[2017-04-14] MEDS: PIPERACILLIN/TAZOB 4.5 GM/100 ML PRE-DOCKED IVPB SCH (17:56)
[2017-04-14] MEDS ORDERED: PT OWN MED DRAWER 7, Y5N ONE (17:59)
[2017-04-15] MEDS: PIPERACILLIN/TAZOB 4.5 GM/100 ML PRE-DOCKED IVPB SCH ×3 (01:27→17:27)
[2017-04-15] MEDS: CLINDAMYCIN 600MG PREMIX IVPB 50 ML IVPB SCH ×4 (02:11→21:40)
--- NOTE | 2017-04-15 10:02 | PN ---
Physical Exam: SUBJECTIVE: Patient seen and examined OBJECTIVE: He feels much better his morning. Says inflammation is slightly down but erythema and warmth significantly better. Denies n/v, SOB, fever, chills, and pain. Vital Signs Period Temp Pulse Resp BP Sys/Moy Pulse Ox Last 24 Hr 98.1 F-99.0 F 74-88 18-20 135-157/76-93 99-100 GENERAL: The patient is awake, alert, and fully oriented, in no acute distress. HEAD: Normal with no signs of trauma. EYES: sclera anicteric, conjunctiva clear. NECK: supple no LAD LUNGS: Breath sounds equal, clear to auscultation bilaterally, no wheezes, no crackles, no accessory muscle use. HEART: Regular rate and rhythm, S1, S2 without murmur, rub or gallop. ABDOMEN: Soft, nontender, nondistended, normoactive bowel sounds, no guarding, no rebound, no hepatosplenomegaly, no masses. Integrumentary: Erythema ( RLE cellulitis) Laboratory Results - last 24 hr 04/14/17 04/14/17 06:30 06:57 WBC 13.8 H RBC 3.76 L Hgb 11.0 L Hct 33.5 L MCV 89.1 MCH 29.2 MCHC 32.8 RDW 14.9 Plt Count 409 D MPV 8.2 Neutrophils % 65.0 Lymphocytes % 26.0 D Monocytes % 3.0 L Eosinophils % 4.0 D Band Neutrophils 1.0 D Metamyelocytes 1 Differential Comment Manual diff done Platelet Estimate Adequate ESR > 130 H Active Medications Generic Name Dose Route Start Last Admin Trade Name Bernardq PRN Reason Stop Dose Admin Acetaminophen 650 mg 04/08/17 02:26 04/10/17 09:48 Tylenol - PO 650 mg Q6H PRN Administration FEVER OR PAIN Amlodipine Besylate 10 mg 04/08/17 10:00 04/14/17 10:36 Norvasc - PO 10 mg DAILY RUBÉN Administration Enoxaparin Sodium 40 mg 04/08/17 10:04/14/17 10:34 Lovenox - SQ 40 mg DAILY RUBÉN Administration Guaifenesin 10 ml 04/07/17 19:51 Robitussin - PO Q6H PRN Potassium Chloride/Dextrose/Sod Cl 1,000 mls @ 100 mls/hr 04/07/17 13:15 14:02 D5-1/2ns+20 Meq Kcl - IV Not Given ASDIR RUBÉN Clindamycin Phosphate 50 mls @ 100 mls/hr 04/12/17 09:00 04/15/17 08:59 Cleocin 600 Mg Premix Ivpb - IVPB 100 mls/hr Q6H-IV RUBÉN Administration Ondansetron HCl 4 mg 04/08/17 02:26 04/08/17 02:27 Zofran Injection IVPB 4 mg Q6H PRN Administration NAUSEA AND/OR VOMITING Oxycodone HCl 5 mg 04/07/17 13:12 04/14/17 10:43 Roxicodone - PO 5 mg Q4H PRN Administration PAIN Piperacillin Sod/Tazobactam Sod 4.5 gm 04/14/17 18:00 04/15/17 01:27 Zosyn 4.5gm Ivpb (Pre-Docked) IVPB 4.5 gm Q8H-IV RUBÉN Administration Polyethylene Glycol 17 gm 04/10/17 12:33 04/13/17 10:03 Miralax (For Daily Use) - PO 17 grams DAILY PRN Administration CONSTIPATION Valsartan 160 mg 04/08/17 10:00 04/14/17 10:36 Diovan - PO 160 mg DAILY RUBÉN Administration ASSESSMENT/PLAN: 61 Yo M with severe RLE cellulitis that is gradually improving with Zosyn. Patient was found to have elevated LFTs and ESR, without clear etiology. 1) Nectrotizing RLE Cellulitis with gradual improvement - Continue with IV antibiotics today then start Clindamycin and Levofloxacin PO - Surgical eval of leg 2) Persistent Leukocytosis with elevated ESR, CRP. - Hematology evaluation to r/o malignancy Visit type - Emergency Visit Emergency Visit: No - New Patient This patient is new to me today: Yes Date on this admission: 04/15/17 - Critical Care Critical Care patient: No
--- NOTE | 2017-04-15 10:35 | PN ---
Teaching Attending Note Name of Resident: Echo Flaherty ATTENDING PHYSICIAN STATEMENT I saw and evaluated the patient. I reviewed the resident's note and discussed the case with the resident. I agree with the resident's findings and plan as documented. SUBJECTIVE:Clinda Zosyn Subjective improvement noted appetitie good NO fever OBJECTIVE: Right leg much less swollen erythematous Small blisters anteriorly seen not fluctuant ASSESSMENT AND PLAN: Laboratory Tests 04/07/17 04/08/17 04/09/17 11:00 15:30 07:35 WBC Hgb Hct Plt Count Neutrophils % Lymphocytes % Monocytes % Eosinophils % ESR 121 H BUN Creatinine Creat Clearance w eGFR AST ALT Alkaline Phosphatase Total Protein Albumin Ur Leukocyte Esterase Negative Urine WBC 11 HIV 1&2 Antibody Screen Negative HIV P24 Antigen Negative 04/14/17 04/14/17 04/14/17 06:30 06:57 08:19 WBC 13.8 H Hgb 11.0 L Hct 33.5 L Plt Count 409 D Neutrophils % 65.0 Lymphocytes % 26.0 D Monocytes % 3.0 L Eosinophils % 4.0 D ESR > 130 H BUN 13 D Creatinine 1.0 D Creat Clearance w eGFR > 60 AST 27 D ALT 80 H D Alkaline Phosphatase 168 H Total Protein 7.3 Albumin 2.5 L Ur Leukocyte Esterase Urine WBC HIV 1&2 Antibody Screen HIV P24 Antigen Assessment Necrotizing cellulitis with gradual improvement GI complaints N/V improved Persitant leukocytosis ESR CRP ? myeloproliferative CT imaging retroperitoneal adenopathy seen Plan Continue with IV antibiotics today then po Clindamycin and Levofloxacin Hematology evaluation malignancy Surgical evaluation of leg though looks better by much Agnes JEFFREY Problem List - Problems (1) Elevated LFTs Code(s): R79.89 - OTHER SPECIFIED ABNORMAL FINDINGS OF BLOOD CHEMISTRY
[2017-04-15] MEDS: VALSARTAN 160 MG TABLET (UD) PO SCH (11:06)
[2017-04-15] MEDS: amLODIPine BESYLATE 10 MG TABLET (FP) PO SCH (11:06)
[2017-04-15] MEDS: ENOXAPARIN NA (PORCINE) 40 MG/0.4 ML DISP.SYRIN SQ SCH (11:09)
--- NOTE | 2017-04-15 12:37 | PN ---
Progress Note (short form) - Note Progress Note: pt seen/ examined feels better decreased leg swelling. denies abd pain. Vital Signs Temp 99 F 04/15/17 09:01 Pulse 80 04/15/17 09:01 Resp 18 04/15/17 09:01 BP 137/79 04/15/17 09:01 Pulse Ox 100 04/14/17 21:00 Intake & Output 04/14/17 04/15/17 04/15/17 23:59 11:59 23:59 Intake Total 200 1640 430 Output Total 550 600 500 Balance -350 1040 -70 Intake: IV 1200 D5-1/2Ns+20 Meq KCl - 1, 1200 000 ml @ 100 mls/hr IV ASDIR RUBÉN Rx#:[id number] IVPB 200 200 Oral 240 430 Output: Urine 550 600 500 Void 550 600 500 Other: Voiding Method Urinal Urinal Urinal Bowel Movement No No Active Medications Acetaminophen (Tylenol -) 650 mg PO Q6H PRN PRN Reason: FEVER OR PAIN Last Admin: 04/10/17 09:48 Dose: 650 mg Amlodipine Besylate (Norvasc -) 10 mg PO DAILY [facility] Last Admin: 04/13/17 10:03 Dose: 10 mg Enoxaparin Sodium (Lovenox -) 40 mg SQ DAILY RUBÉN Last Admin: 04/13/17 10:03 Dose: 40 mg Guaifenesin (Robitussin -) 10 ml PO Q6H PRN Potassium Chloride/Dextrose/Sod Cl (D5-1/2ns+20 Meq Kcl -) 1,000 mls @ 100 mls/ hr IV ASDIR RUBÉN Last Admin: 04/13/17 10:03 Dose: 100 mls/hr Piperacillin Sod/Tazobactam (Sod 4.5 gm/ Dextrose) 100 mls @ 200 mls/hr IVPB Q8H-IV RUBÉN PRN Reason: Protocol Last Admin: 04/13/17 10:03 Dose: 200 mls/hr Clindamycin Phosphate (Cleocin 600 Mg Premix Ivpb -) 50 mls @ 100 mls/hr IVPB Q6H-IV RUBÉN Last Admin: 04/13/17 10:03 Dose: 100 mls/hr Ondansetron HCl (Zofran Injection) 4 mg IVPB Q6H PRN PRN Reason: NAUSEA AND/OR VOMITING Last Admin: 04/08/17 02:27 Dose: 4 mg Oxycodone HCl (Roxicodone -) 5 mg PO Q4H PRN PRN Reason: PAIN Last Admin: 04/10/17 09:49 Dose: 5 mg Polyethylene Glycol (Miralax (For Daily Use) -) 17 gm PO DAILY PRN PRN Reason: CONSTIPATION Last Admin: 04/13/17 10:03 Dose: 17 grams Valsartan (Diovan -) 160 mg PO DAILY RUBÉN Last Admin: 04/13/17 10:03 Dose: 160 mg CBC, BMP 04/14/17 06:30 04/14/17 08:19 Physical Exam. Constitutional: Yes: No Distress/ comfortable Cardiovascular: Yes: Regular Rate and Rhythm Respiratory: Yes: CTA Bilaterally Gastrointestinal: Yes: Normal Bowel Sounds, Soft, Tenderness, Epigastrium. No: Distention Extremities: Yes: Erythema / blister--improved Edema: Yes- decreased Assessment/Plan looks better esr persistantly high nectrozing cellulitis contunue abx- discussed with Dr. Rose also today will consult surgeon also as well as hematology discussed with pt/ pts will follow Problem List - Problems (1) Cellulitis Code(s): L03.90 - CELLULITIS, UNSPECIFIED Qualifiers: Site of cellulitis: extremity Site of cellulitis of extremity: lower extremity Laterality: right Qualified Code(s): L03.115 - Cellulitis of right lower limb (2) Sepsis Code(s): A41.9 - SEPSIS, UNSPECIFIED ORGANISM Qualifiers: Sepsis type: sepsis due to unspecified organism Qualified Code(s): A41.9 - Sepsis, unspecified organism (3) Hypertension Code(s): I10 - ESSENTIAL (PRIMARY) HYPERTENSION Qualifiers: Hypertension type: essential hypertension Qualified Code(s): I10 - Essential (primary) hypertension (4) Elevated LFTs Code(s): R79.89 - OTHER SPECIFIED ABNORMAL FINDINGS OF BLOOD CHEMISTRY
[2017-04-15] MEDS: D5-1/2NS+20 MEQ KCL - 1,000 ML IV SCH (12:41)
--- NOTE | 2017-04-15 16:12 | CONSULT ---
Consult Consult Specialty:: Surgery Referred by:: emma Felder - History of Present Illness Chief Complaint: Pain and swelling right leg for one week. History of Present Illness: Patient went to [facility] on a vacation , and fell down and hurt his left leg, with some superficial abrasions on his right knee. It progressed to swelling and redness of his anterior right leg with severe pain. denies diabetes mellitus, H/O hypertension. - History Source History Provided By: Patient - Past Medical History Cardio/Vascular: Yes: HTN - Alcohol/Substance Use Hx Alcohol Use: No - Smoking History Smoking history: Current every day smoker Home Medications - Allergies Allergies/Adverse Reactions: Allergies Allergy/AdvReac Type Severity Reaction Status Date / Time No Known Allergies Allergy Verified 04/07/17 10:11 - Home Medications Home Medications: Ambulatory Orders Amlodipine/Valsartan [Exforge 10-160 mg Tablet] 1 tab PO DAILY 04/07/17 Physical Exam Vital Signs: Vital Signs Temperature 98.2 F 04/15/17 15:59 Pulse Rate 79 04/15/17 15:59 Respiratory Rate 18 04/15/17 15:59 Blood Pressure 159/91 04/15/17 15:59 O2 Sat by Pulse Oximetry (%) 99 04/15/17 09:00 Extremities: Yes: Other (Left leg is normal. On his right leg there is some tenderness over the coelho , midright leg. The skin over thev area is shiny . here is no aclf tenderness.) Labs: CBC, BMP 04/14/17 06:30 04/14/17 08:19 Imaging - Results X-ray: Report Reviewed, Image Reviewed Problem List - Problems (1) Cellulitis Code(s): L03.90 - CELLULITIS, UNSPECIFIED Qualifiers: Site of cellulitis: extremity Site of cellulitis of extremity: lower extremity Laterality: right Qualified Code(s): L03.115 - Cellulitis of right lower limb (2) Basal cell carcinoma of right lower leg Code(s): C44.712 - BASAL CELL CARCINOMA SKIN/ RIGHT LOWER LIMB, INCLUDING HIP Assessment/Plan The area of tenderness was aspirated with a no 21 gauge needle, no pus was obtained , blood was sent for cuture. Will obtain CT scan of right leg, fluid for culture , elevate right leg. Antibiotics.
[2017-04-15] MEDS: oxyCODONE HCL 5 MG TABLET PO PRN (16:36)
--- NOTE | 2017-04-15 18:23 | CONSULT ---
Consult - Past Medical History Cardio/Vascular: Yes: HTN - Alcohol/Substance Use Hx Alcohol Use: No - Smoking History Smoking history: Current every day smoker Home Medications - Allergies Allergies/Adverse Reactions: Allergies Allergy/AdvReac Type Severity Reaction Status Date / Time No Known Allergies Allergy Verified 04/07/17 10:11 - Home Medications Home Medications: Ambulatory Orders Amlodipine/Valsartan [Exforge 10-160 mg Tablet] 1 tab PO DAILY 04/07/17 Physical Exam Vital Signs: Vital Signs Temperature 98.2 F 04/15/17 15:59 Pulse Rate 79 04/15/17 15:59 Respiratory Rate 18 04/15/17 15:59 Blood Pressure 159/91 04/15/17 15:59 O2 Sat by Pulse Oximetry (%) 99 04/15/17 09:00 Labs: CBC, BMP 04/14/17 06:30 04/14/17 08:19 Assessment/Plan Vascular surgery This is a 61-year-old male with a history of hypertension who presents for evaluation of right leg redness and swelling. The patient traveled to [facility] for 21 days, returning yesterday. While he was there, about 10 days ago, he fell and sustained some knee and tibial abrasions on the pavement. 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 He was wearing long pants so he is not sure if it was read at the time. This morning he noticed extensive redness and warmth. He reports fevers/chills overnight, but did not take his temperature. He did take a cold medicine this morning that contained Tylenol and is afebrile here. pt found to have extensive rle cellulitis given vanco/ clinda and zosyn in er PE Head - NC/AT Lung - CTA Heart - RRR abd - soft,nt,nd ext - Right lower ext erythema Area is warm to touch. Blisters present secondary to swelling of leg. Pt has palpable DP and PT pulse. A/P Cellulitis of RLE CT leg shows no abscess. General surgery placed a needle in area and no pus was found. Would continue IV antibiotics with leg elevation. No need to explore area as of now. John Muhammad DO
[2017-04-16] MEDS: CLINDAMYCIN 600MG PREMIX IVPB 50 ML IVPB SCH ×3 (02:34→14:43)
[2017-04-16] MEDS: PIPERACILLIN/TAZOB 4.5 GM/100 ML PRE-DOCKED IVPB SCH ×2 (02:34→09:24)
--- NOTE | 2017-04-16 06:37 | CONSULT ---
Consult - text type - Consultation Consultation Note: Patient seen and examined 04/15/17 Full consult dictated 61 y/o patient with h/o obesity, HTN, smoking,h/o b/l knee replacemens, few yrs. ago, comes after recent travel to [facility] and fall with cellulitis of RLE. Duplex RLE neg. + inguinal adenopathy on right, retroperitoneal odes on CT. MRI abdomen was insignificant Denies any h/o night sweats/wt. loss/intermittent fevers Patient feels much improved on antibiotics Suspect reactive adenopathy and elevated ESR due to cellulitis However will need close monitoring and biopsy of nodes if no improvement Will check LDH/SPEP/UPEP/flow will need close out patient f/u discussed this with patient
[2017-04-16 08:31] LABS: BASOPHIL 0.3 % (0-2.0); EOSINOPHIL 4.9 % (0-4.5); MCH 29.8 pg (25.7-33.7); MCHC 33.7 g/dl (32.0-35.9); MEAN CELL VOLUME 88.5 fl (80-96); MEAN PLT VOLUME 7.9 fl (7.5-11.1); NEUTROPHILS 65.7 % (42.8-82.8); PLATELET COUNT 568 K/MM3 (134-434); RDW 14.4 % (11.9-15.9)
[2017-04-16 08:53] LABS: ALBUMIN 2.9 g/dl (3.4-5.0); ANION GAP 6 (8-16); CALCIUM 9.3 mg/dL (8.5-10.1); CO2 29 mmol/L (21-32); GLUCOSE,RANDOM 175 mg/dL (74-106)
[2017-04-16 08:58] LABS: ALK PHOS 149 U/L (45-117); BILIRUBIN,TOTAL 0.8 mg/dL (0.2-1.0); CREATININE 1.1 mg/dL (0.7-1.3); SGOT/AST 20 U/L (15-37); SGPT/ALT 67 U/L (12-78); TOT PROT 8.7 g/dl (6.4-8.2)
[2017-04-16] MEDS: amLODIPine BESYLATE 10 MG TABLET (FP) PO SCH (09:24)
[2017-04-16] MEDS: VALSARTAN 160 MG TABLET (UD) PO SCH (09:24)
[2017-04-16] MEDS: oxyCODONE HCL 5 MG TABLET PO PRN (09:31)
[2017-04-16] MEDS: ACETAMINOPHEN 325 MG TABLET (FP) PO PRN (09:32)
--- NOTE | 2017-04-16 14:21 | PN ---
Progress Note, Physician Chief Complaint: no c/o pain feels well - Current Medication List Current Medications: Active Medications Acetaminophen (Tylenol -) 650 mg PO Q6H PRN PRN Reason: FEVER OR PAIN Last Admin: 04/16/17 09:32 Dose: 650 mg Amlodipine Besylate (Norvasc -) 10 mg PO DAILY [facility] Last Admin: 04/16/17 09:24 Dose: 10 mg Guaifenesin (Robitussin -) 10 ml PO Q6H PRN Last Admin: 04/16/17 09:24 Dose: 10 ml Potassium Chloride/Dextrose/Sod Cl (D5-1/2ns+20 Meq Kcl -) 1,000 mls @ 100 mls/ hr IV ASDIR RUBÉN Last Admin: 04/15/17 12:41 Dose: 100 mls/hr Clindamycin Phosphate (Cleocin 600 Mg Premix Ivpb -) 50 mls @ 100 mls/hr IVPB Q6H-IV [facility] Last Admin: 04/16/17 09:24 Dose: 100 mls/hr Piperacillin Sod/Tazobactam (Sod 4.5 gm/ Dextrose) 100 mls @ 200 mls/hr IVPB Q8H-IV [facility] Stop: 04/21/17 10:29 Ondansetron HCl (Zofran Injection) 4 mg IVPB Q6H PRN PRN Reason: NAUSEA AND/OR VOMITING Last Admin: 04/08/17 02:27 Dose: 4 mg Oxycodone HCl (Roxicodone -) 5 mg PO Q4H PRN PRN Reason: PAIN Last Admin: 04/16/17 09:31 Dose: 5 mg Polyethylene Glycol (Miralax (For Daily Use) -) 17 gm PO DAILY PRN PRN Reason: CONSTIPATION Last Admin: 04/13/17 10:03 Dose: 17 grams Valsartan (Diovan -) 160 mg PO DAILY [facility] Last Admin: 04/16/17 09:24 Dose: 160 mg - Objective Vital Signs: Vital Signs Temperature 97.9 F 04/16/17 10:00 Pulse Rate 85 04/16/17 10:00 Respiratory Rate 18 04/16/17 10:00 Blood Pressure 153/76 04/16/17 10:00 O2 Sat by Pulse Oximetry (%) 99 04/15/17 21:00 Constitutional: Yes: No Distress Cardiovascular: Yes: Regular Rate and Rhythm Respiratory: Yes: CTA Bilaterally Gastrointestinal: Yes: Normal Bowel Sounds, Soft. No: Distention, Tenderness Extremities: Yes: Other (wrinkling) Edema: Yes (decreased) Labs: CBC, BMP 04/16/17 08:05 04/16/17 08:05 INR, PTT INR 1.43 (0.82-1.09) H 04/07/17 10:59 Problem List - Problems (1) Cellulitis Code(s): L03.90 - CELLULITIS, UNSPECIFIED Qualifiers: Site of cellulitis: extremity Site of cellulitis of extremity: lower extremity Laterality: right Qualified Code(s): L03.115 - Cellulitis of right lower limb (2) Elevated LFTs Code(s): R79.89 - OTHER SPECIFIED ABNORMAL FINDINGS OF BLOOD CHEMISTRY (3) Hypertension Code(s): I10 - ESSENTIAL (PRIMARY) HYPERTENSION Qualifiers: Hypertension type: essential hypertension Qualified Code(s): I10 - Essential (primary) hypertension (4) Sepsis Code(s): A41.9 - SEPSIS, UNSPECIFIED ORGANISM Qualifiers: Sepsis type: sepsis due to unspecified organism Qualified Code(s): A41.9 - Sepsis, unspecified organism (5) Pancreatic abnormality Code(s): 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
--- NOTE | 2017-04-16 14:35 | PN ---
Progress Note (short form) - Note Progress Note: feels great leg much improved Vital Signs Period Temp Pulse Resp BP Sys/Moy Pulse Ox Last 24 Hr 97.8 F-98.2 F 75-85 18-18 146-159/76-97 99 cor-rrr lungs clear abd soft,nt ext much improved, minimal edema, decreased erythema and warmth CBC, BMP 04/16/17 08:05 04/16/17 08:05 Microbiology 04/15/17 16:00 Aspirate Gram Stain - Final 04/07/17 10:59 Blood - Peripheral Venous Blood Culture - Final NO GROWTH AFTER 5 DAYS INCUBATION 04/07/17 10:50 Blood - Peripheral Venous Blood Culture - Final NO GROWTH AFTER 5 DAYS INCUBATION 04/07/17 11:28 Urine - Urine Clean Catch Urine Culture - Final NO GROWTH OBTAINED Active Medications Acetaminophen (Tylenol -) 650 mg PO Q6H PRN PRN Reason: FEVER OR PAIN Last Admin: 04/16/17 09:32 Dose: 650 mg Amlodipine Besylate (Norvasc -) 10 mg PO DAILY [facility] Last Admin: 04/16/17 09:24 Dose: 10 mg Guaifenesin (Robitussin -) 10 ml PO Q6H PRN Last Admin: 04/16/17 09:24 Dose: 10 ml Potassium Chloride/Dextrose/Sod Cl (D5-1/2ns+20 Meq Kcl -) 1,000 mls @ 100 mls/ hr IV ASDIR RUBÉN Last Admin: 04/15/17 12:41 Dose: 100 mls/hr Clindamycin Phosphate (Cleocin 600 Mg Premix Ivpb -) 50 mls @ 100 mls/hr IVPB Q6H-IV [facility]UBÉ[facility] Last Admin: 04/16/17 09:24 Dose: 100 mls/hr Piperacillin Sod/Tazobactam (Sod 4.5 gm/ Dextrose) 100 mls @ 200 mls/hr IVPB Q8H-IV [facility] Stop: 04/21/17 10:29 Ondansetron HCl (Zofran Injection) 4 mg IVPB Q6H PRN PRN Reason: NAUSEA AND/OR VOMITING Last Admin: 04/08/17 02:27 Dose: 4 mg Oxycodone HCl (Roxicodone -) 5 mg PO Q4H PRN PRN Reason: PAIN Last Admin: 04/16/17 09:31 Dose: 5 mg Polyethylene Glycol (Miralax (For Daily Use) -) 17 gm PO DAILY PRN PRN Reason: CONSTIPATION Last Admin: 04/13/17 10:03 Dose: 17 grams Valsartan (Diovan -) 160 mg PO DAILY [facility] Last Admin: 04/16/17 09:24 Dose: 160 mg a/p severe soft tissue infection RLE resolving can switch to po levaquin 500 and clindamycin 300 tid for 7 days add bacid bid for next month d/w PMD
--- NOTE | 2017-04-16 14:41 | DS ---
Physical Examination Vital Signs: Vital Signs Temperature 97.9 F 04/16/17 10:00 Pulse Rate 85 04/16/17 10:00 Respiratory Rate 18 04/16/17 10:00 Blood Pressure 153/76 04/16/17 10:00 O2 Sat by Pulse Oximetry (%) 99 04/15/17 21:00 Constitutional: Yes: No Distress, Calm Cardiovascular: Yes: Regular Rate and Rhythm Respiratory: Yes: CTA Bilaterally Gastrointestinal: Yes: Normal Bowel Sounds, Soft. No: Distention, Tenderness Extremities: Yes: Other (decreased edema, decreased warmth, and tenderness, wrinkling of skin) Edema: Yes Labs: CBC, BMP 04/16/17 08:05 04/16/17 08:05 Discharge Summary Reason For Visit: CELLULITIS; SEPSIS Current Active Problems Basal cell carcinoma of right lower leg (Acute) Cellulitis (Acute) Elevated LFTs (Acute) Hypertension (Acute) Jaundice (Acute) Pancreatic abnormality (Acute) Sepsis (Acute) Hospital Course: ADmitted or cellulitis right leg-- sen by Vascular, ID and general surgery Also seen by GI for abnormal liver sono-- MRI negative for pancreatic masses Was on iv antibiotics seen by Hematology -- for retroperitoneal LNE and inguinal LNE-- thgought to be due to reactive adenopathy due to cellulitis-- needs close follow up labs done for LDH, protein electrophoresis pt is better No pus or abscess in leg CT abd-- negative for air/gas/abscess stable for dc home - Instructions Referrals: Emerita Hogue MD [Primary Care Provider] - Samra Santana MD [Staff Physician] - Disposition: HOME - Home Medications Comprehensive Discharge Medication List: Ambulatory Orders Amlodipine/Valsartan [Exforge 10-160 mg Tablet] 1 tab PO DAILY 04/07/17
[2017-04-16] MEDS: D5-1/2NS+20 MEQ KCL - 1,000 ML IV SCH (14:43)
[2017-04-16 15:07] VITALS: BP 135/72; PULSE 80; TEMP 98.5
[2017-04-16] MEDS ORDERED: PIPERACILLIN/TAZOB 4.5 GM 4.5 GM in DEXTROSE 5%-WATER 100 ML IVPB SCH (18:00)
== END 2017-04-16 16:15 | disposition home or self-care (01) | DRG 872 ==
LOC: JER 09:59 → JERBED 12:58 → J8W 18:12 → J5S 04-14 15:53
PROVIDERS: ADMIT Internal Medicine; ATTEND Internal Medicine
DX: A41.9 Sepsis, unspecified organism (principal); L03.115 Cellulitis of right lower limb; I10 Essential (primary) hypertension; Z96.653 Presence of artificial knee joint, bilateral; F17.210 Nicotine dependence, cigarettes, uncomplicated; E66.9 Obesity, unspecified; Z68.32 Body mass index [BMI] 32.0-32.9, adult; R94.5 Abnormal results of liver function studies; R31.0 Gross hematuria
CPT/HCPCS: 36415; 71020-TC; 72192-TC; 73590-TC-RT; 73700-TC-RT; 73701-TC-RT; 74150-TC; 74183-TC; 76705-TC; 80053; 80074; 81003; 81015; 82247; 82248; 82378; 83605; 85025; 85610; 85651; 86140; 86301; 86618; 86803; 87040; 87070; 87075; 87086; 87205; 87389; 93005; 93010; 93971-TC; 99284-25; Q9967

== ENCOUNTER 2017-05-09 15:19 | Inpatient (IN) | payer OTHER ==
--- NOTE | 2017-05-09 15:59 | PDOC ---
History of Present Illness <Jannette Almonte - Last Filed: 05/09/17 18:16> - General History Source: Patient, Spouse Exam Limitations: No Limitations - History of Present Illness Initial Comments: 05/09/17 16:20 61yo male with a pmhx of HTN presents ambulatory to the ED with his for eval of elevated BG check on outpt labs. Pt states for the last 2 weeks since being d/c from the hospital after being admitted for RLE cellulitis the patient has felt generally weak, has polyuria and polydipsia. States he has not been able to eat and has felt generally weak. No mcghee. No cp/sob. No abd pain. No dysuria. C/o urinar freq. No n/v/d. No paresthesias. No neck or back pain. No f/ c. No cough. Cellulitis resolved. Pt states blurred vision x 2 weeks. States he was called by his PMD this am after having outpt labs performed stating his BG was elevated. States his has DM and she used her glucometer to check his BG and it registered as "too high" to calculate. Pt denies all other complaints. No trauma. Pt ambulates with a steady gait with a cane at baseline and in the ED. Timing/Duration: 1 week (2 weeks) Severity: mild Associated Symptoms: reports: loss of appetite, weakness. denies: chest pain, cough, diaphoresis, fever/chills, headaches, nausea/vomiting, rash, shortness of breath <Citlalli North - Last Filed: 05/09/17 18:22> - General Chief Complaint: Blood Sugar Problem Stated Complaint: LAB VARIANCE Time Seen by Provider: 05/09/17 16:10 Past History <Jannette Almonte - Last Filed: 05/09/17 18:16> - Travel Traveled outside of the country in the last 30 days: No Close contact w/someone who was outside of country & ill: No - Past Medical History HTN: Yes Hypercholesterolemia: Yes - Immunization History Immunization Up to Date: Yes - Psycho/Social/Smoking Cessation Hx Suicidal Ideation: No Smoking History: Former smoker Have you smoked in the past 12 months: No Cigars Per Day: 2 Information on smoking cessation initiated: No 'Breaking Loose' booklet given: 04/07/17 Hx Alcohol Use: No Drug/Substance Use Hx: No <Citlalli North - Last Filed: 05/09/17 18:22> - Past Medical History Allergies/Adverse Reactions: Allergies Allergy/AdvReac Type Severity Reaction Status Date / Time No Known Allergies Allergy Verified 05/09/17 15:23 Home Medications: Ambulatory Orders Amlodipine/Valsartan [Exforge 10-160 mg Tablet] 1 tab PO DAILY 04/07/17 Clindamycin [Cleocin -] 300 mg PO TID #21 capsule 04/16/17 Lactobacillus Acidophilus [Bacid -] 1 each PO DAILY #30 capsule 04/16/17 Levofloxacin [Levaquin] 500 mg PO DAILY #7 tablet 04/16/17 Oxycodone HCl [Roxicodone -] 5 mg PO Q8H PRN #20 tablet MDD 3 04/16/17 Review of Systems - Review of Systems Is the patient limited Spanish proficient: No Constitutional: Yes: Loss of Appetite, Weakness. No: Chills, Fever, Night Sweats HEENTM: Yes: Blurred Vision, Recent change in vision. No: Eye Pain, Double Vision, Ear Pain, Nose Pain, Nose Congestion, Throat Pain, Throat Swelling Respiratory: No: Cough, Orthopnea, Shortness of Breath, SOB with Exertion, SOB at Rest Cardiac (ROS): Yes: Lightheadedness. No: Chest Pain, Edema, Irregular Heart Rate, Palpitations ABD/GI: No: Abdominal Distended, Constipated, Diarrhea, Nausea, Vomiting Musculoskeletal: No: Back Pain Neurological: No: Headache, Numbness, Paresthesia, Ataxia, Dizziness Endocrine: Yes: Increased Thirst, Increased Urine All Other Systems: Reviewed and Negative <Citlalli North - Last Filed: 05/09/17 18:22> *Physical Exam - Vital Signs Last Vital Signs Temp Pulse Resp BP Pulse Ox 97.4 F L 107 H 19 105/59 99 05/09/17 15:23 05/09/17 15:23 05/09/17 15:23 05/09/17 15:23 05/09/17 15:23 <Jannette Almonte - Last Filed: 05/09/17 18:16> - Vital Signs Last Vital Signs Temp Pulse Resp BP Pulse Ox 97.4 F L 107 H 19 105/59 99 05/09/17 15:23 05/09/17 15:23 05/09/17 15:23 05/09/17 15:23 05/09/17 15:23 - Physical Exam General Appearance: Yes: Nourished, Appropriately Dressed. No: Apparent Distress, Disheveled HEENT: positive: EOMI, FARIDEH, Pharynx Normal, Other (dry mm, dry cracked tongue) Neck: positive: Trachea midline, Normal Thyroid, Supple. negative: Tender, Rigid Respiratory/Chest: positive: Lungs Clear, Normal Breath Sounds. negative: Respiratory Distress Cardiovascular: positive: Regular Rhythm, Regular Rate, S1, S2. negative: Edema Vascular Pulses: Dorsalis-Pedis (R): 2+, Doralis-Pedis (L): 2+ Gastrointestinal/Abdominal: positive: Normal Bowel Sounds, Soft. negative: Tender, Pulsatile Mass, Tenderness Lymphatic: negative: Adenopathy Musculoskeletal: positive: Normal Inspection. negative: CVA Tenderness Extremity: positive: Normal Capillary Refill, Normal Inspection, Normal Range of Motion, Other (ambulates with a cane with a steady gait). negative: Pedal Edema, Swelling, Calf Tenderness Integumentary: positive: Normal Color, Dry, Warm, Other (tenting skin) Neurologic: positive: manager ct II-XII NML intact, Fully Oriented, Alert, Normal Mood/ Affect, Normal Response, Motor Strength 5/5. negative: Sensory Deficit <Citlalli North - Last Filed: 05/09/17 18:22> Heart Score/ECG Review - ECG Intrepretation Comment:: 05/09/17 16:59 sinus at 92, nl axis, nl interval, no acute st/t wave findings <Citlalli North - Last Filed: 05/09/17 18:22> ED Treatment Course - LABORATORY CBC & Chemistry Diagram: 05/09/17 16:15 05/09/17 16:15 - ADDITIONAL ORDERS Additional order review: Laboratory Results 05/09/17 05/09/17 05/09/17 16:15 16:15 16:15 Sodium 117 L* Potassium 6.6 H* Chloride 79 L Carbon Dioxide 18 L Anion Gap 20 H BUN 49 H D Creatinine 2.0 H Creat Clearance w eGFR 34.14 Random Glucose 1105 H* Calcium 9.9 Magnesium 2.4 Total Bilirubin 0.7 D AST 13 L D ALT 24 Alkaline Phosphatase 149 H Creatine Kinase 68 Troponin I 0.02 Total Protein 8.0 Albumin 3.6 Lipase 650 H Urine Color Urine Appearance Urine pH Urine Protein Urine Glucose (UA) Urine Ketones Urine Blood Urine Nitrite Urine Bilirubin Urine Urobilinogen Ur Leukocyte Esterase 05/09/17 16:15 Sodium Potassium Chloride Carbon Dioxide Anion Gap BUN Creatinine Creat Clearance w eGFR Random Glucose Calcium Magnesium Total Bilirubin AST ALT Alkaline Phosphatase Creatine Kinase Troponin I Total Protein Albumin Lipase Urine Color Straw Urine Appearance Clear Urine pH 5.0 Urine Protein Negative Urine Glucose (UA) 3+ H Urine Ketones 1+ H Urine Blood Negative Urine Nitrite Negative Urine Bilirubin Negative Urine Urobilinogen Negative Ur Leukocyte Esterase Negative 05/09/17 16:15 RBC 4.13 MCV 93.5 MCHC 31.7 L RDW 12.8 MPV 9.1 Neutrophils % 62.9 D Lymphocytes % 27.5 D Monocytes % 8.4 Eosinophils % 0.6 Basophils % 0.6 - Medications Given in the ED: ED Medications Discontinued Medications Generic Name Dose Route Start Last Admin Trade Name Freq PRN Reason Stop Dose Admin Sodium Chloride 2,000 ml 05/09/17 16:09 05/09/17 16:30 Normal Saline - IV 05/09/17 16:10 2,000 ml ONCE ONE Administration <Jannette Almonte - Last Filed: 05/09/17 18:16> - LABORATORY CBC & Chemistry Diagram: 05/09/17 16:15 05/09/17 16:15 <Citlalli Norht - Last Filed: 05/09/17 18:22> Medical Decision Making - Medical Decision Making 05/09/17 18:11 Dr. Emerita Hogue paged via phone answering service. Awaiting call back. 05/09/17 18:15 Dr. Evans claims correspondence clerk. Dr. Evans responded to the page and the patients case was discussed. Dr. Evans accepted patient and will be admitted under his services. 05/09/17 18:16 Dr. Jorgensen paged via phone answering service. 05/09/17 18:18 Dr. Jorgensen returned the page and the patient's case was discussed. Patient accepted to ICU for further management. <Jannette Almonte - Last Filed: 05/09/17 18:16> - Critical Care Time Total Critical Care Time (minutes): 45 Critical Care Statement: The care of this patient involved high complexity decision making to prevent further life threatening deterioration of the patient 's condition and/or to evaluate & treat vital organ system(s) failure or risk of failure. - Medical Decision Making 05/09/17 18:04 a/p: 61yo male with polyuria, polydipsia and new onset elevated glucose on oupt labs -labs -ekg -ivf hydration -cxr -poc glucose -ua -reassess 05/09/17 18:05 called by lab, elevated glucose, elevated cr, sodium 117, glucose >1100 -cont ivf hydration -elevated K to 6.6 not hemolized, will start calcium, ivf hydration, insulin 05/09/17 18:05 family updated on clinical status. updated on labs. pt agreeable to stay for admission 05/09/17 18:05 elevated lipase, no abd pain, no n/v/d. re-eval abd soft. 05/09/17 18:06 calls placed to PMD and to CC 05/09/17 18:[address] Evans covering Dr. Hogue requests endocrine consult 05/09/17 18:20 case discussed with ICU call placed to endocrine pt accepted by ICU and PMD <Citlalli North - Last Filed: 05/09/17 18:22> *DC/Admit/Observation/Transfer <Jannette Almonte - Last Filed: 05/09/17 18:16> - Discharge Dispostion Admit: Yes - Attestations Physician Attestion: 05/09/17 18:22 I, Dr. Citlalli North, DO, attest that this document has been prepared under my direction and personally reviewed by me in its entirety. I further attest, that it accurately reflects all work, treatment, procedures and medical decision -making performed by me. <Citlalli North - Last Filed: 05/09/17 18:22> Diagnosis at time of Disposition: Elevated LFTs, Hypertension, Hyperglycemia, Hyperkalemia, Hyponatremia, Acute kidney injury, High anion gap metabolic acidosis Diagnosis at time of Disposition: (Ruled Out): Diabetes mellitus with hyperosmolar coma - Discharge Dispostion Condition at time of disposition: Critical - Referrals Referrals: Emerita Hogue MD [Primary Care Provider] -
[2017-05-09] MEDS ORDERED: SODIUM CHLORIDE 0.9% 1000 ML INFUS.BAG IV ONE ×3 (16:09→23:11)
[2017-05-09 16:53] LABS: BASOPHIL 0.6 % (0-2.0); EOSINOPHIL 0.6 % (0-4.5); MCH 29.6 pg (25.7-33.7); MCHC 31.7 g/dl (32.0-35.9); MEAN CELL VOLUME 93.5 fl (80-96); MEAN PLT VOLUME 9.1 fl (7.5-11.1); NEUTROPHILS 62.9 % (42.8-82.8); PLATELET COUNT 225 K/MM3 (134-434); RDW 12.8 % (11.9-15.9); WHITE BLOOD COUNT 5.6 K/mm3 (4.0-10.0)
[2017-05-09 16:56] LABS: URINE APPEARANCE CLEAR; URINE BILIRUBIN NEGATIVE (NEGATIVE); URINE BLOOD NEGATIVE (NEGATIVE); URINE COLOR STRAW; URINE GLUCOSE (UA) 3+ (NEGATIVE); URINE KETONE 1+ (NEGATIVE); URINE LEUK ESTERASE NEGATIVE (NEGATIVE); URINE NITRITE NEGATIVE (NEGATIVE); URINE PROTEIN NEGATIVE (NEGATIVE); URINE UROBILINOGEN NEGATIVE mg/dL (0.2-1.0)
[2017-05-09 17:34] LABS: ALBUMIN 3.6 g/dl (3.4-5.0); ANION GAP 20 (8-16); BILIRUBIN,TOTAL 0.7 mg/dL (0.2-1.0); CALCIUM 9.9 mg/dL (8.5-10.1); CO2 18 mmol/L (21-32); MAGNESIUM 2.4 mg/dL (1.8-2.4); SGOT/AST 13 U/L (15-37)
[2017-05-09 17:38] LABS: TROPONIN I 0.02 ng/ml (0.00-0.05)
[2017-05-09 17:41] LABS: ALK PHOS 149 U/L (45-117); SGPT/ALT 24 U/L (12-78)
[2017-05-09 17:44] LABS: GLUCOSE,RANDOM 1105 mg/dL (74-106)
[2017-05-09] MEDS ORDERED: INSULIN REGULAR HUMAN 100 UNITS/ML *VIAL IVPUSH ONE (17:52)
[2017-05-09] MEDS ORDERED: CALCIUM GLUCONATE 10% - 1,000 MG/10 ML VIAL IVPUSH ONE (18:24)
[2017-05-09] MEDS ORDERED: CALCIUM GLUCONATE 10% - 1,000 MG/10 ML VIAL ONE (18:30)
[2017-05-09 20:28] LABS: VENOUS PH 7.23 (7.32-7.42)
[2017-05-09] MEDS ORDERED: INSULIN REGULAR 100 UNITS in SODIUM CHLORIDE 99 ML IVPB SCH (22:15)
[2017-05-09] MEDS ORDERED: SODIUM CHLORIDE 1,000 ML IV SCH (23:30)
--- NOTE | 2017-05-09 23:43 | CONSULT ---
Consult Consult Specialty:: Pulm/CCM Reason for Consultation:: HHs/DKA - History of Present Illness Chief Complaint: polyuria History of Present Illness: This is a 61 yo man w/ h/o obesity, HTN, smoking, b/l knee replacements recent hospitalization for RLE cellulitis s/p ABX now presenting with elevated BS w/ polyuria and polydipsia. Patient found glucose 1105, Na (corrected): 141, RYAN ( BUN/Scr: 49/2.0) with positive ketone in urine. Patient given IV fluids (NS 5l) and placed on insulin drip. - History Source History Provided By: Patient, Medical Record Limitations to Obtaining History: No Limitations - Past Medical History Cardio/Vascular: Yes: HTN - Alcohol/Substance Use Hx Alcohol Use: No - Smoking History Smoking history: Former smoker Have you smoked in the past 12 months: No Home Medications - Allergies Allergies/Adverse Reactions: Allergies Allergy/AdvReac Type Severity Reaction Status Date / Time No Known Allergies Allergy Verified 05/09/17 15:23 - Home Medications Home Medications: Ambulatory Orders Amlodipine/Valsartan [Exforge 10-160 mg Tablet] 1 tab PO DAILY 04/07/17 Clindamycin [Cleocin -] 300 mg PO TID #21 capsule 04/16/17 Lactobacillus Acidophilus [Bacid -] 1 each PO DAILY #30 capsule 04/16/17 Levofloxacin [Levaquin] 500 mg PO DAILY #7 tablet 04/16/17 Oxycodone HCl [Roxicodone -] 5 mg PO Q8H PRN #20 tablet MDD 3 04/16/17 Family Disease History - Family Disease History Family History: Unremarkable Review of Systems - Review of Systems Constitutional: reports: Loss of Appetite, Weakness Cardiovascular: reports: No Symptoms Respiratory: reports: No Symptoms Genitourinary: reports: Frequency Neurological: reports: No Symptoms Physical Exam Vital Signs: Vital Signs Temperature 97.4 F L 05/09/17 15:23 Pulse Rate 88 05/09/17 18:19 Respiratory Rate 18 05/09/17 18:19 Blood Pressure 129/89 05/09/17 18:19 O2 Sat by Pulse Oximetry (%) 99 05/09/17 18:19 Constitutional: Yes: No Distress, Calm Eyes: Yes: EOM Intact HENT: Yes: Normocephalic Neck: Yes: Trachea Midline Cardiovascular: Yes: Regular Rate and Rhythm Respiratory: Yes: CTA Bilaterally Gastrointestinal: Yes: Normal Bowel Sounds, Soft Edema: No Labs: CBCD WBC 5.6 K/mm3 (4.0-10.0) 05/09/17 16:15 RBC 4.13 M/mm3 (4.00-5.60) 05/09/17 16:15 Hgb 12.2 GM/dL (11.7-16.9) 05/09/17 16:15 Hct 38.6 % (35.4-49) 05/09/17 16:15 MCV 93.5 fl (80-96) 05/09/17 16:15 MCHC 31.7 g/dl (32.0-35.9) L 05/09/17 16:15 RDW 12.8 % (11.9-15.9) 05/09/17 16:15 Plt Count 225 K/MM3 (134-434) 05/09/17 16:15 MPV 9.1 fl (7.5-11.1) 05/09/17 16:15 CMP Sodium 117 mmol/L (136-145) L* 05/09/17 16:15 Potassium 6.6 mmol/L (3.5-5.1) H* 05/09/17 16:15 Chloride 79 mmol/L (98-107) L 05/09/17 16:15 Carbon Dioxide 18 mmol/L (21-32) L 05/09/17 16:15 Anion Gap 20 (8-16) H 05/09/17 16:15 BUN 49 mg/dL (7-18) H D 05/09/17 16:15 Creatinine 2.0 mg/dL (0.7-1.3) H 05/09/17 16:15 Creat Clearance w eGFR 34.14 (>60) 05/09/17 16:15 Random Glucose 1105 mg/dL (74-106) H* 05/09/17 16:15 Calcium 9.9 mg/dL (8.5-10.1) 05/09/17 16:15 Total Bilirubin 0.7 mg/dL (0.2-1.0) D 05/09/17 16:15 AST 13 U/L (15-37) L D 05/09/17 16:15 ALT 24 U/L (12-78) 05/09/17 16:15 Alkaline Phosphatase 149 U/L (45-117) H 05/09/17 16:15 Total Protein 8.0 g/dl (6.4-8.2) 05/09/17 16:15 Albumin 3.6 g/dl (3.4-5.0) 05/09/17 16:15 CARDIAC ENZYMES Creatine Kinase 68 IU/L (39-308) 05/09/17 16:15 Troponin I 0.02 ng/ml (0.00-0.05) 05/09/17 16:15 Urine Test Results Urine Color Straw 05/09/17 16:15 Urine Appearance Clear 05/09/17 16:15 Urine pH 5.0 (5.0-8.0) 05/09/17 16:15 Ur Specific [place] <= 1.005 (1.005-1.025) 05/09/17 16:15 Urine Protein Negative (NEGATIVE) 05/09/17 16:15 Urine Glucose (UA) 3+ (NEGATIVE) H 05/09/17 16:15 Urine Ketones 1+ (NEGATIVE) H 05/09/17 16:15 Urine Blood Negative (NEGATIVE) 05/09/17 16:15 Urine Nitrite Negative (NEGATIVE) 05/09/17 16:15 Urine Bilirubin Negative (NEGATIVE) 05/09/17 16:15 Ur Leukocyte Esterase Negative (NEGATIVE) 05/09/17 16:15 Imaging - Results Chest X-ray: Report Reviewed, Image Reviewed EKG: Report Reviewed, Image Reviewed Problem List - Problems (1) RYAN (acute kidney injury) Code(s): N17.9 - ACUTE KIDNEY FAILURE, UNSPECIFIED (2) High anion gap metabolic acidosis Code(s): E87.2 - ACIDOSIS (3) Hyperglycemia, unspecified Code(s): R73.9 - HYPERGLYCEMIA, UNSPECIFIED (4) Hyperosmolality syndrome Code(s): E87.0 - HYPEROSMOLALITY AND HYPERNATREMIA Assessment/Plan 61 yo man p/w HHS w/ RYAN -Insulin drip 0.1units/kg/hr --if BG doesnt fall by 50-70 mg/dl in first hr double insulin infusion until BG drops by 50-70 mg/dl --goal B-200mg/dl until AG closes --if BG fall <70 mg/dl hold insulin x15m and bolus D50 IVP --restart insulin at half prior dose and notify prodiver -IV fluids 100-250ml/hr --corrected sodium >140 use d5 1/2NS --corrected sodium <140 use NS --add D5 once BG reaches 250 mg/dl -potassium replacement --K> 5.5mEq/l no replacement --K 4-5 mEq/l add KCl 20 mEq to each liter of IVF --K 3.5-3.9 mEq/l add KCL 20-40 mEq to each liter of IVF --K 3.1-3.4 mEq/l add KCL 40-60 mEq to each liter of IVF --K <3 mEq/l add KCL 40-80 mEq to each liter of IVF (call provider) -BMP q4hrs until AG closes -Once AG closed and ketosis resolved and able to tolerate PO diet transition to insulin sq -Endocrine consult -DVT prophylaxis Boerem ACNP Pulm/CCM CCT: 35m
[2017-05-09 23:45] LABS: ALBUMIN 3.3 g/dl (3.4-5.0); ANION GAP 17 (8-16); CALCIUM 9.3 mg/dL (8.5-10.1); CO2 16 mmol/L (21-32); CREATININE 1.3 mg/dL (0.7-1.3); SGOT/AST 8 U/L (15-37); SGPT/ALT 21 U/L (12-78)
[2017-05-09 23:47] LABS: ALK PHOS 116 U/L (45-117); BILIRUBIN,TOTAL 0.7 mg/dL (0.2-1.0); TOT PROT 7.4 g/dl (6.4-8.2)
[2017-05-09 23:48] LABS: GLUCOSE,RANDOM 547 mg/dL (74-106)
[2017-05-10 00:22] VITALS: BMI 29.9
[2017-05-10 03:57] LABS: ALBUMIN 3.2 g/dl (3.4-5.0); ANION GAP 11 (8-16); CALCIUM 9.4 mg/dL (8.5-10.1); CO2 23 mmol/L (21-32); CREATININE 1.3 mg/dL (0.7-1.3); SGOT/AST 8 U/L (15-37); SGPT/ALT 20 U/L (12-78); TOT PROT 7.1 g/dl (6.4-8.2)
[2017-05-10 03:58] LABS: ALK PHOS 99 U/L (45-117)
[2017-05-10 04:05] LABS: GLUCOSE,RANDOM 306 mg/dL (74-106)
[2017-05-10 05:53] LABS: BASOPHIL 0.9 % (0-2.0); EOSINOPHIL 5.3 % (0-4.5); MCH 29.7 pg (25.7-33.7); MCHC 33.9 g/dl (32.0-35.9); MEAN CELL VOLUME 87.5 fl (80-96); MEAN PLT VOLUME 8.7 fl (7.5-11.1); NEUTROPHILS 37.9 % (42.8-82.8); PLATELET COUNT 219 K/MM3 (134-434); RDW 12.5 % (11.9-15.9); WHITE BLOOD COUNT 5.2 K/mm3 (4.0-10.0)
[2017-05-10] MEDS ORDERED: D5-NS + 20 MEQ KCL - 1,000 ML IV SCH (06:00)
[2017-05-10] MEDS ORDERED: INSULIN REGULAR 100 UNITS in SODIUM CHLORIDE 99 ML IVPB SCH (07:07)
[2017-05-10] MEDS: INSULIN DETEMIR 100 UNITS/ML MDV SQ SCH ×3 (07:49→21:37)
[2017-05-10] MEDS ORDERED: HEMOQUE TEST 1 EACH EACH ONE (08:37)
--- NOTE | 2017-05-10 09:02 | HP ---
Admitting History and Physical - Primary Care Physician PCP: Emerita Hgoue - Admission Chief Complaint: elevated blood sugar History of Present Illness: This is a 61 y/o male with pmhx pf HTN --recent admission due to cellulitis--- send to the ED for eval of elevated BG check on outpt labs.patient's blood sugar was more than 650--new onset. Pt recently discharged form hospital after treatment of RLE cellulitis. He has felt generally weak, with polyuria and polydipsia and has not been able to eat much since then. He has been drinking a lot of water, juice and sodas recently. No cp/sob. No abd pain. No dysuria. no fever or chills . Pt found to have blood sugar >1000 in the hospital and treated with IV Insulin and IV hydration. patient admitted to ICU Case was discussed with emergency room physician last night. Patient well known to me from previous admission Patient seen and examined today in the ICU Feels better Blood sugar much better On insulin drip which is being tapered Denies chest pain or shortness of breath or abdominal pain No headache or dizziness No urinary or bowel trouble--- except increased frequency of urination History Source: Patient Limitations to Obtaining History: No Limitations - Past Medical History Cardiovascular: Yes: HTN Additional Past Medical History: Obesity Reason for admission due to cellulitis--- - Smoking History Smoking history: Former smoker Have you smoked in the past 12 months: No - Alcohol/Substance Use Hx Alcohol Use: No Home Medications - Allergies Allergies/Adverse Reactions: Allergies Allergy/AdvReac Type Severity Reaction Status Date / Time No Known Allergies Allergy Verified 05/09/17 15:23 - Home Medications Home Medications: Ambulatory Orders Amlodipine/Valsartan [Exforge 10-160 mg Tablet] 1 tab PO DAILY 04/07/17 Clindamycin [Cleocin -] 300 mg PO TID #21 capsule 04/16/17 Lactobacillus Acidophilus [Bacid -] 1 each PO DAILY #30 capsule 04/16/17 Levofloxacin [Levaquin] 500 mg PO DAILY #7 tablet 04/16/17 Oxycodone HCl [Roxicodone -] 5 mg PO Q8H PRN #20 tablet MDD 3 04/16/17 Family Disease History - Family Disease History Family History: Unremarkable Review of Systems Findings/Remarks: see history and physical - Review of Systems Constitutional: reports: Lethargy, Loss of Appetite, Weakness Eyes: reports: Blurred Vision HENT: reports: No Symptoms Neck: reports: No Symptoms Cardiovascular: reports: No Symptoms Respiratory: reports: No Symptoms Gastrointestinal: reports: No Symptoms Genitourinary: reports: Frequency Musculoskeletal: reports: Muscle Weakness Neurological: reports: Weakness Endocrine: reports: Increased Thirst Psychiatric: reports: No Symptoms Physical Examination Vital Signs: Vital Signs Temperature 98.6 F 05/10/17 08:00 Pulse Rate 80 05/10/17 08:00 Respiratory Rate 14 05/10/17 08:00 Blood Pressure 108/76 05/10/17 08:00 O2 Sat by Pulse Oximetry (%) 99 05/09/17 18:23 Constitutional: Yes: No Distress, Calm Eyes: Yes: Conjunctiva Clear HENT: Yes: WNL Neck: Yes: Supple, Trachea Midline Cardiovascular: Yes: Regular Rate and Rhythm Respiratory: Yes: CTA Bilaterally Gastrointestinal: Yes: Normal Bowel Sounds, Soft Edema: No Neurological: Yes: Alert Labs: CBC, BMP 05/10/17 05:35 Imaging - Results Chest X-ray: Report Reviewed EKG: Report Reviewed Problem List - Problems (1) Hyperosmolality syndrome Code(s): E87.0 - HYPEROSMOLALITY AND HYPERNATREMIA (2) Hyperkalemia Code(s): E87.5 - HYPERKALEMIA (3) Hypertension Code(s): I10 - ESSENTIAL (PRIMARY) HYPERTENSION Qualifiers: (4) RYAN (acute kidney injury) Code(s): N17.9 - ACUTE KIDNEY FAILURE, UNSPECIFIED Assessment/Plan clinically much better continue present care Taper off insulin drip IV fluids Monitor lites Endocrinology consult----discussed with Dr. Denise--- will see the patient DVT prophylaxis Discussed with the ICU resident also. Will follow Critical care time--- 35 min.
--- NOTE | 2017-05-10 09:03 | EKG ---
Test Reason : Blood Pressure : / mmHG Vent. Rate : 092 BPM Atrial Rate : 092 BPM P-R Int : 152 ms QRS Dur : 106 ms QT Int : 334 ms P-R-T Axes : 048 -07 044 degrees QTc Int : 413 ms NORMAL SINUS RHYTHM WHEN COMPARED WITH ECG OF 07-APR-2017 11:33, NONSPECIFIC T WAVE ABNORMALITY NO LONGER EVIDENT IN INFERIOR LEADS T WAVE AMPLITUDE HAS INCREASED IN ANTEROLATERAL LEADS Confirmed by LILIANA JEFFREY, NIEVES ([id number]) on 05/10/2017 9:02:41 AM Referred By: Confirmed By:NIEVES FORD MD
[2017-05-10 09:21] LABS: ALBUMIN 3.3 g/dl (3.4-5.0); ANION GAP 10 (8-16); BILIRUBIN,TOTAL 0.5 mg/dL (0.2-1.0); CALCIUM 9.8 mg/dL (8.5-10.1); CO2 23 mmol/L (21-32); CREATININE 1.2 mg/dL (0.7-1.3); GLUCOSE,RANDOM 220 mg/dL (74-106); SGOT/AST 11 U/L (15-37); SGPT/ALT 22 U/L (12-78); TOT PROT 7.1 g/dl (6.4-8.2)
--- NOTE | 2017-05-10 09:21 | CONSULT ---
Consult Consult Specialty:: Endocrinology Referred by:: Dr Evans Reason for Consultation:: [facility] - History of Present Illness Chief Complaint: Hyperglycemia History of Present Illness: This is a 61 y/o male with of HTN presented ambulatory to the ED with his for eval of elevated BG check on outpt labs. Pt recetly discharged form hospital after treatment of RLE cellulitis. He has felt generally weak, with polyuria and polydipsia and has not been able to eat much since then. He has been drinking a lot of water, juice and sodas recently.No mcghee. No cp/sob. No abd pain. No dysuria. C/o urinar freq for many years. No n/v/d. No paresthesias. No neck or back pain. No f/c. No cough. Cellulitis resolved. Pt states blurred vision x 2 weeks. Pt found to have blood sugar >1000 in the hospital and treated with IV Insulin and IV hydration. Pt feels much better. No family h/o DM - History Source History Provided By: Patient, Medical Record - Past Medical History Cardio/Vascular: Yes: HTN - Alcohol/Substance Use Hx Alcohol Use: No - Smoking History Smoking history: Former smoker Have you smoked in the past 12 months: No Home Medications - Allergies Allergies/Adverse Reactions: Allergies Allergy/AdvReac Type Severity Reaction Status Date / Time No Known Allergies Allergy Verified 05/09/17 15:23 - Home Medications Home Medications: Ambulatory Orders Amlodipine/Valsartan [Exforge 10-160 mg Tablet] 1 tab PO DAILY 04/07/17 Clindamycin [Cleocin -] 300 mg PO TID #21 capsule 04/16/17 Lactobacillus Acidophilus [Bacid -] 1 each PO DAILY #30 capsule 04/16/17 Levofloxacin [Levaquin] 500 mg PO DAILY #7 tablet 04/16/17 Oxycodone HCl [Roxicodone -] 5 mg PO Q8H PRN #20 tablet MDD 3 04/16/17 Family Disease History - Family Disease History Other Family History: No family h/o DM Review of Systems - Review of Systems Constitutional: reports: Malaise, Weakness Eyes: reports: No Symptoms HENT: reports: No Symptoms Neck: reports: No Symptoms Cardiovascular: reports: No Symptoms Respiratory: reports: No Symptoms Gastrointestinal: reports: Nausea Genitourinary: reports: Other (Polyuria, polydipsia) Breasts: reports: No Symptoms Reported Musculoskeletal: reports: No Symptoms Physical Exam Vital Signs: Vital Signs Temperature 98.6 F 05/10/17 08:00 Pulse Rate 80 05/10/17 08:00 Respiratory Rate 14 05/10/17 08:00 Blood Pressure 108/76 05/10/17 08:00 O2 Sat by Pulse Oximetry (%) 99 05/09/17 18:23 Constitutional: Yes: No Distress, Calm Eyes: Yes: Conjunctiva Clear, EOM Intact HENT: Yes: Atraumatic, Normocephalic Neck: Yes: Supple, Trachea Midline Cardiovascular: Yes: Regular Rate and Rhythm Respiratory: Yes: Regular, CTA Bilaterally Gastrointestinal: Yes: Normal Bowel Sounds, Soft Musculoskeletal: Yes: WNL Extremities: Yes: WNL Edema: No Neurological: Yes: Alert, Oriented Labs: CBC, BMP 05/10/17 05:35 Problem List - Problems (1) RYAN (acute kidney injury) Code(s): N17.9 - ACUTE KIDNEY FAILURE, UNSPECIFIED (2) High anion gap metabolic acidosis Code(s): E87.2 - ACIDOSIS (3) Hyperosmolality syndrome Code(s): E87.0 - HYPEROSMOLALITY AND HYPERNATREMIA Assessment/Plan AP; Mild DKA: S Osm 295, urine ketone positive, AGap 20, CO2 18 with Venous PH of 7.23. 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 Elevated Lipase: Probably secondary to DKA as pt is asmptomatic. Repeat amylase and Lipase tomorrow. If still elevated will need further evaluation including GI consult. HTN
[2017-05-10 09:22] LABS: ALK PHOS 96 U/L (45-117)
[2017-05-10] MEDS ORDERED: SODIUM CHLORIDE 1,000 ML IV SCH (09:30)
[2017-05-10] MEDS ORDERED: MUPIROCIN 2% TOPICAL OINTMENT FOR DECOLONIZATION NS SCH ×2 (10:00→22:00)
[2017-05-10] MEDS ORDERED: INSULIN DETEMIR 100 UNITS/ML MDV SQ SCH (10:00)
[2017-05-10] MEDS ORDERED: HEPARIN NA (PORCINE) 5,000 UNITS/ML 1ML VIAL SQ SCH (10:00)
[2017-05-10] MEDS: INSULIN SLIDING SCALE (NOVOLOG) 1 VIAL SQ SCH ×3 (11:12→21:39)
--- NOTE | 2017-05-10 13:27 | PN ---
Physical Exam: SUBJECTIVE: Patient seen and examined. feels better. Lying comfortably in bed. Denies nausea, vomiting, dizziness. States that he has polyurea and polyphagia from a long time but never been diagnosed with DM. Patient has elevated lipase level and in his last admission he also have elevated bilrubin, MRCP done in last admission doesn't show any pancreatic mass. OBJECTIVE: Vital Signs Period Temp Pulse Resp BP Sys/Moy Pulse Ox Last 24 Hr 97.8 F-98.6 F 78-87 13-20 108-143/64-84 GENERAL: The patient is awake, alert, and fully oriented, in no acute distress. HEAD: Normal with no signs of trauma. EYES: PERRL,, conjunctiva clear. No ptosis. ENT: moist mucous membranes. NECK: Trachea midline, full range of motion, supple. LUNGS: Breath sounds equal, clear to auscultation bilaterally, no wheezes, no crackles, no accessory muscle use. HEART: s1s2 normal ABDOMEN: Soft, nontender, nondistended, normoactive bowel sounds, no guarding, no rebound, EXTREMITIES: 2+ pulses, warm, PSYCH: Normal mood, normal affect. SKIN: Warm, dry, Laboratory Results - last 24 hr 05/09/17 05/09/17 05/10/17 20:25 22:55 01:13 WBC RBC Hgb Hct MCV MCH MCHC RDW Plt Count MPV Neutrophils % Lymphocytes % Monocytes % Eosinophils % Basophils % VBG pH 7.23 L* POC VBG pCO2 49.5 POC VBG pO2 26.2 L Mixed VBG HCO3 20.0 Sodium 132 L D Potassium 5.8 H Chloride 99 D Carbon Dioxide 16 L Anion Gap 17 H BUN 34 H D Creatinine 1.3 D Creat Clearance w eGFR 56.12 POC Glucometer [phone] Random Glucose 547 H* D Hemoglobin A1c % Calcium 9.3 Total Bilirubin 0.7 AST 8 L D ALT 21 Alkaline Phosphatase 116 D Total Protein 7.4 Albumin 3.3 L Lipase 05/10/17 05/10/17 05/10/17 01:58 03:00 03:11 WBC RBC Hgb Hct MCV MCH MCHC RDW Plt Count MPV Neutrophils % Lymphocytes % Monocytes % Eosinophils % Basophils % VBG pH POC VBG pCO2 POC VBG pO2 Mixed VBG HCO3 Sodium 138 Potassium 4.4 D Chloride 104 Carbon Dioxide 23 D Anion Gap 11 BUN 28 H Creatinine 1.3 Creat Clearance w eGFR 56.12 POC Glucometer 350.08803 315.89062 Random Glucose 306 H* D Hemoglobin A1c % Calcium 9.4 Total Bilirubin 1.0 D AST 8 L ALT 20 Alkaline Phosphatase 99 Total Protein 7.1 Albumin 3.2 L Lipase 05/10/17 05/10/17 05/10/17 04:15 05:35 05:35 WBC 5.2 RBC 3.90 L Hgb 11.6 L Hct 34.2 L MCV 87.5 MCH 29.7 MCHC 33.9 RDW 12.5 Plt Count 219 MPV 8.7 Neutrophils % 37.9 L D Lymphocytes % 44.1 H D Monocytes % 11.8 H Eosinophils % 5.3 H D Basophils % 0.9 VBG pH POC VBG pCO2 POC VBG pO2 Mixed VBG HCO3 Sodium 139 Potassium 4.3 Chloride 106 Carbon Dioxide 23 Anion Gap 10 BUN 25 H Creatinine 1.2 Creat Clearance w eGFR > 60 POC Glucometer [phone] Random Glucose 220 H D Hemoglobin A1c % Calcium 9.8 Total Bilirubin 0.5 D AST 11 L D ALT 22 Alkaline Phosphatase 96 Total Protein 7.1 Albumin 3.3 L Lipase 937 H 05/10/17 05/10/17 05/10/17 05:35 05:35 05:58 WBC RBC Hgb Hct MCV MCH MCHC RDW Plt Count MPV Neutrophils % Lymphocytes % Monocytes % Eosinophils % Basophils % VBG pH POC VBG pCO2 POC VBG pO2 Mixed VBG HCO3 Sodium Cancelled Potassium Cancelled Chloride Cancelled Carbon Dioxide Cancelled Anion Gap Cancelled BUN Cancelled Creatinine Cancelled Creat Clearance w eGFR Cancelled POC Glucometer 219.06139 Random Glucose Cancelled Hemoglobin A1c % 13.1 H D Calcium Cancelled Total Bilirubin Cancelled AST Cancelled ALT Cancelled Alkaline Phosphatase Cancelled Total Protein Cancelled Albumin Cancelled Lipase 05/10/17 05/10/17 05/10/17 07:02 08:43 09:38 WBC RBC Hgb Hct MCV MCH MCHC RDW Plt Count MPV Neutrophils % Lymphocytes % Monocytes % Eosinophils % Basophils % VBG pH POC VBG pCO2 POC VBG pO2 Mixed VBG HCO3 Sodium Potassium Chloride Carbon Dioxide Anion Gap BUN Creatinine Creat Clearance w eGFR POC Glucometer 178.31622 72.76679 133.47790 Random Glucose Hemoglobin A1c % Calcium Total Bilirubin AST ALT Alkaline Phosphatase Total Protein Albumin Lipase 05/10/17 11:09 WBC RBC Hgb Hct MCV MCH MCHC RDW Plt Count MPV Neutrophils % Lymphocytes % Monocytes % Eosinophils % Basophils % VBG pH POC VBG pCO2 POC VBG pO2 Mixed VBG HCO3 Sodium Potassium Chloride Carbon Dioxide Anion Gap BUN Creatinine Creat Clearance w eGFR POC Glucometer 67.09729 Random Glucose Hemoglobin A1c % Calcium Total Bilirubin AST ALT Alkaline Phosphatase Total Protein Albumin Lipase Active Medications Generic Name Dose Route Start Last Admin Trade Name Freq PRN Reason Stop Dose Admin Chlorhexidine Gluconate 1 applic 05/10/17 22:00 Hibiclens For Decolonization - TP HS RUBÉN Heparin Sodium (Porcine) 5,000 unit 05/10/17 10:00 05/10/17 10:17 Heparin - SQ 5,000 unit BID RUBÉN Administration Insulin Aspart 1 vial 05/10/17 11:00 05/10/17 11:12 Novolog Vial Sliding Scale - SQ Not Given ACHS [facility] Protocol Insulin Detemir 13 units 05/10/17 07:15 05/10/17 09:43 Levemir Vial SQ Not Given BID RUBÉN Mupirocin 1 applic 05/10/17 10:00 05/10/17 10:18 Bactroban Ointment (For Decolonization) - NS 05/15/17 09:59 1 applic BID RUBÉN Administration ASSESSMENT/PLAN: DKA resolved, anion gap closed. started on levemir 13unit bid and novalog sliding scale moniotr blood sugar diabetic diet endo consult appreciated. HbA1c 13.1 monitor intake and output. Cold Press Operator consult. RYAN : could pre renal improved, after IV fluid protein negative in urine monitor intake and output avoid nephrotoxic drugs. fluid: orally allowed electrolyte: repeat in am nutrition: diabetic diet. DVt pro: on heparin sq bid gi pro: not required. transfer to Med surg Visit type - Emergency Visit Emergency Visit: Yes ED Registration Date: 05/09/17 Care time: The patient presented to the Emergency Department on the above date and was hospitalized for further evaluation of their emergent condition. - New Patient This patient is new to me today: Yes Date on this admission: 05/10/17 - Critical Care Critical Care patient: Yes Total Critical Care Time (in minutes): 45 Critical Care Statement: The care of this patient involved high complexity decision making to prevent further life threatening deterioration of the patient 's condition and/or to evaluate & treat vital organ system(s) failure or risk of failure.
--- NOTE | 2017-05-10 13:28 | PN ---
Teaching Attending Note Name of Resident: Ganesh Mckeon ATTENDING PHYSICIAN STATEMENT I saw and evaluated the patient. I reviewed the resident's note and discussed the case with the resident. I agree with the resident's findings and plan as documented. SUBJECTIVE: Patient seen and examined in the ICU. Awake and alert. Off IV insulin. Seen by Endocrine this AM. Denies CP or SOB. Intake & Output 05/07/17 05/08/17 05/09/17 05/10/17 23:59 23:59 23:59 23:59 Intake Total 2576 Output Total 2090 Balance 486 Weight 233 lb 1 oz 233 lb 11.04 oz Last Vital Signs Temp Pulse Resp BP Pulse Ox 98.2 F 87 15 143/84 99 05/10/17 10:00 05/10/17 12:00 05/10/17 12:00 05/10/17 12:00 05/09/17 18:23 Active Medications Chlorhexidine Gluconate (Hibiclens For Decolonization -) 1 applic TP HS RUBÉN Heparin Sodium (Porcine) (Heparin -) 5,000 unit SQ BID [facility] Last Admin: 05/10/17 10:17 Dose: 5,000 unit Insulin Aspart (Novolog Vial Sliding Scale -) 1 vial SQ ACHS [facility] PRN Reason: Protocol Last Admin: 05/10/17 11:12 Dose: Not Given Insulin Detemir (Levemir Vial) 13 units SQ BID [facility] Last Admin: 05/10/17 09:43 Dose: Not Given Mupirocin (Bactroban Ointment (For Decolonization) -) 1 applic NS BID [facility] Stop: 05/15/17 09:59 Last Admin: 05/10/17 10:18 Dose: 1 applic Constitutional: Yes: Awake and alert, NAD Eyes: Yes: EOM Intact, (-) Pallor HENT: Yes: Normocephalic Neck: Yes: Trachea Midline Cardiovascular: Yes: Regular Rate and Rhythm Respiratory: Yes: CTA Bilaterally Gastrointestinal: Yes: Normal Bowel Sounds, Soft Edema: No Labs: Laboratory Results - last 24 hr 05/09/17 05/09/17 05/09/17 16:15 16:15 16:15 WBC 5.6 RBC 4.13 Hgb 12.2 Hct 38.6 MCV 93.5 MCH 29.6 MCHC 31.7 L RDW 12.8 Plt Count 225 MPV 9.1 Neutrophils % 62.9 D Lymphocytes % 27.5 D Monocytes % 8.4 Eosinophils % 0.6 Basophils % 0.6 VBG pH POC VBG pCO2 POC VBG pO2 Mixed VBG HCO3 Sodium 117 L* Potassium 6.6 H* Chloride 79 L Carbon Dioxide 18 L Anion Gap 20 H BUN 49 H D Creatinine 2.0 H Creat Clearance w eGFR 34.14 POC Glucometer Random Glucose 1105 H* Hemoglobin A1c % Lactic Acid Calcium 9.9 Magnesium 2.4 Total Bilirubin 0.7 D AST 13 L D ALT 24 Alkaline Phosphatase 149 H Creatine Kinase Troponin I Total Protein 8.0 Albumin 3.6 Lipase Urine Color Straw Urine Appearance Clear Urine pH 5.0 Ur Specific [place] <= 1.005 Urine Protein Negative Urine Glucose (UA) 3+ H Urine Ketones 1+ H Urine Blood Negative Urine Nitrite Negative Urine Bilirubin Negative Urine Urobilinogen Negative Ur Leukocyte Esterase Negative 05/09/17 05/09/17 05/09/17 16:15 16:15 18:19 WBC RBC Hgb Hct MCV MCH MCHC RDW Plt Count MPV Neutrophils % Lymphocytes % Monocytes % Eosinophils % Basophils % VBG pH POC VBG pCO2 POC VBG pO2 Mixed VBG HCO3 Sodium Potassium Chloride Carbon Dioxide Anion Gap BUN Creatinine Creat Clearance w eGFR POC Glucometer Random Glucose Hemoglobin A1c % Lactic Acid 0.8 Calcium Magnesium Total Bilirubin AST ALT Alkaline Phosphatase Creatine Kinase 68 Troponin I 0.02 Total Protein Albumin Lipase 650 H Urine Color Urine Appearance Urine pH Ur Specific [place] Urine Protein Urine Glucose (UA) Urine Ketones Urine Blood Urine Nitrite Urine Bilirubin Urine Urobilinogen Ur Leukocyte Esterase 05/09/17 05/09/17 05/10/17 20:25 22:55 01:13 WBC RBC Hgb Hct MCV MCH MCHC RDW Plt Count MPV Neutrophils % Lymphocytes % Monocytes % Eosinophils % Basophils % VBG pH 7.23 L* POC VBG pCO2 49.5 POC VBG pO2 26.2 L Mixed VBG HCO3 20.0 Sodium 132 L D Potassium 5.8 H Chloride 99 D Carbon Dioxide 16 L Anion Gap 17 H BUN 34 H D Creatinine 1.3 D Creat Clearance w eGFR 56.12 POC Glucometer 303.02782 Random Glucose 547 H* D Hemoglobin A1c % Lactic Acid Calcium 9.3 Magnesium Total Bilirubin 0.7 AST 8 L D ALT 21 Alkaline Phosphatase 116 D Creatine Kinase Troponin I Total Protein 7.4 Albumin 3.3 L Lipase Urine Color Urine Appearance Urine pH Ur Specific [place] Urine Protein Urine Glucose (UA) Urine Ketones Urine Blood Urine Nitrite Urine Bilirubin Urine Urobilinogen Ur Leukocyte Esterase 05/10/17 05/10/17 05/10/17 01:58 03:00 03:11 WBC RBC Hgb Hct MCV MCH MCHC RDW Plt Count MPV Neutrophils % Lymphocytes % Monocytes % Eosinophils % Basophils % VBG pH POC VBG pCO2 POC VBG pO2 Mixed VBG HCO3 Sodium 138 Potassium 4.4 D Chloride 104 Carbon Dioxide 23 D Anion Gap 11 BUN 28 H Creatinine 1.3 Creat Clearance w eGFR 56.12 POC Glucometer 350.17145 315.65975 Random Glucose 306 H* D Hemoglobin A1c % Lactic Acid Calcium 9.4 Magnesium Total Bilirubin 1.0 D AST 8 L ALT 20 Alkaline Phosphatase 99 Creatine Kinase Troponin I Total Protein 7.1 Albumin 3.2 L Lipase Urine Color Urine Appearance Urine pH Ur Specific [place] Urine Protein Urine Glucose (UA) Urine Ketones Urine Blood Urine Nitrite Urine Bilirubin Urine Urobilinogen Ur Leukocyte Esterase 05/10/17 05/10/17 05/10/17 04:15 05:35 05:35 WBC 5.2 RBC 3.90 L Hgb 11.6 L Hct 34.2 L MCV 87.5 MCH 29.7 MCHC 33.9 RDW 12.5 Plt Count 219 MPV 8.7 Neutrophils % 37.9 L D Lymphocytes % 44.1 H D Monocytes % 11.8 H Eosinophils % 5.3 H D Basophils % 0.9 VBG pH POC VBG pCO2 POC VBG pO2 Mixed VBG HCO3 Sodium 139 Potassium 4.3 Chloride 106 Carbon Dioxide 23 Anion Gap 10 BUN 25 H Creatinine 1.2 Creat Clearance w eGFR > 60 POC Glucometer 286.42256 Random Glucose 220 H D Hemoglobin A1c % Lactic Acid Calcium 9.8 Magnesium Total Bilirubin 0.5 D AST 11 L D ALT 22 Alkaline Phosphatase 96 Creatine Kinase Troponin I Total Protein 7.1 Albumin 3.3 L Lipase 937 H Urine Color Urine Appearance Urine pH Ur Specific [place] Urine Protein Urine Glucose (UA) Urine Ketones Urine Blood Urine Nitrite Urine Bilirubin Urine Urobilinogen Ur Leukocyte Esterase 05/10/17 05/10/17 05/10/17 05:35 05:35 05:58 WBC RBC Hgb Hct MCV MCH MCHC RDW Plt Count MPV Neutrophils % Lymphocytes % Monocytes % Eosinophils % Basophils % VBG pH POC VBG pCO2 POC VBG pO2 Mixed VBG HCO3 Sodium Cancelled Potassium Cancelled Chloride Cancelled Carbon Dioxide Cancelled Anion Gap Cancelled BUN Cancelled Creatinine Cancelled Creat Clearance w eGFR Cancelled POC Glucometer [phone] Random Glucose Cancelled Hemoglobin A1c % 13.1 H D Lactic Acid Calcium Cancelled Magnesium Total Bilirubin Cancelled AST Cancelled ALT Cancelled Alkaline Phosphatase Cancelled Creatine Kinase Troponin I Total Protein Cancelled Albumin Cancelled Lipase Urine Color Urine Appearance Urine pH Ur Specific [place] Urine Protein Urine Glucose (UA) Urine Ketones Urine Blood Urine Nitrite Urine Bilirubin Urine Urobilinogen Ur Leukocyte Esterase 05/10/17 05/10/17 05/10/17 07:02 08:43 09:38 WBC RBC Hgb Hct MCV MCH MCHC RDW Plt Count MPV Neutrophils % Lymphocytes % Monocytes % Eosinophils % Basophils % VBG pH POC VBG pCO2 POC VBG pO2 Mixed VBG HCO3 Sodium Potassium Chloride Carbon Dioxide Anion Gap BUN Creatinine Creat Clearance w eGFR POC Glucometer 178.83680 72.79010 133.00874 Random Glucose Hemoglobin A1c % Lactic Acid Calcium Magnesium Total Bilirubin AST ALT Alkaline Phosphatase Creatine Kinase Troponin I Total Protein Albumin Lipase Urine Color Urine Appearance Urine pH Ur Specific [place] Urine Protein Urine Glucose (UA) Urine Ketones Urine Blood Urine Nitrite Urine Bilirubin Urine Urobilinogen Ur Leukocyte Esterase 05/10/17 11:09 WBC RBC Hgb Hct MCV MCH MCHC RDW Plt Count MPV Neutrophils % Lymphocytes % Monocytes % Eosinophils % Basophils % VBG pH POC VBG pCO2 POC VBG pO2 Mixed VBG HCO3 Sodium Potassium Chloride Carbon Dioxide Anion Gap BUN Creatinine Creat Clearance w eGFR POC Glucometer 67.82029 Random Glucose Hemoglobin A1c % Lactic Acid Calcium Magnesium Total Bilirubin AST ALT Alkaline Phosphatase Creatine Kinase Troponin I Total Protein Albumin Lipase Urine Color Urine Appearance Urine pH Ur Specific [place] Urine Protein Urine Glucose (UA) Urine Ketones Urine Blood Urine Nitrite Urine Bilirubin Urine Urobilinogen Ur Leukocyte Esterase Problem List - Problems (1) RYAN (acute kidney injury) Code(s): N17.9 - ACUTE KIDNEY FAILURE, UNSPECIFIED (2) High anion gap metabolic acidosis Code(s): E87.2 - ACIDOSIS (3) Hyperglycemia, unspecified Code(s): R73.9 - HYPERGLYCEMIA, UNSPECIFIED (4) Hyperosmolality syndrome Code(s): E87.0 - HYPEROSMOLALITY AND HYPERNATREMIA Assessment/Plan IVF Insulin regimen per Endocrine O2 as needed Will need sleep apnea screen as an outpatient. Follow BGM VTE prophylaxis Dr Jorgensen Critical care time spent in reviewing chart, evaluating patient and formulating plan - 35 minutes.
--- NOTE | 2017-05-10 17:06 | CON.GI ---
Consult Consult Specialty:: gastroenterology Reason for Consultation:: elevated lipase - History of Present Illness History of Present Illness: Patient seen previously because of elevated liver enzymes associated with left leg cellulitis Apr. MRCP was done which revelaed normal CBD and pancreas. He was admitted with uncontrolled DM and dehydration. He denies abdominal pain. Lipase was 953. - History Source History Provided By: Patient - Past Medical History Cardio/Vascular: Yes: HTN - Alcohol/Substance Use Hx Alcohol Use: No - Smoking History Smoking history: Former smoker Have you smoked in the past 12 months: No Home Medications - Allergies Allergies/Adverse Reactions: Allergies Allergy/AdvReac Type Severity Reaction Status Date / Time No Known Allergies Allergy Verified 05/09/17 15:23 - Home Medications Home Medications: Ambulatory Orders Amlodipine/Valsartan [Exforge 10-160 mg Tablet] 1 tab PO DAILY 04/07/17 Clindamycin [Cleocin -] 300 mg PO TID #21 capsule 04/16/17 Lactobacillus Acidophilus [Bacid -] 1 each PO DAILY #30 capsule 04/16/17 Levofloxacin [Levaquin] 500 mg PO DAILY #7 tablet 04/16/17 Oxycodone HCl [Roxicodone -] 5 mg PO Q8H PRN #20 tablet MDD 3 04/16/17 Family Disease History - Family Disease History Other Family History: No family h/o DM Physical Exam-GI Vital Signs: Vital Signs Temperature 97.8 F 05/10/17 15:36 Pulse Rate 81 05/10/17 15:36 Respiratory Rate 18 05/10/17 15:36 Blood Pressure 135/75 05/10/17 15:36 O2 Sat by Pulse Oximetry (%) 99 05/09/17 18:23 Constitutional: Yes: Well Nourished Eyes: Yes: Conjunctiva Clear HENT: Yes: Atraumatic Neck: Yes: Supple Cardiovascular: Yes: Regular Rate and Rhythm Respiratory: Yes: CTA Bilaterally ...Palpate: Yes: Soft. No: Firm/Rigid, Guarding, Hepatomegaly, Mass, Pulsatile Mass, Splenomegaly, Tenderness Labs: CBC, BMP 05/10/17 05:35 05/10/17 05:35 Problem List - Problems (1) Elevated lipase Assessment/Plan: etiology unclear, doubt pancreatitis R> repeat ct in 3 mos as an outpatient to r/o pancreatic neoplasm patieint just had a CT and MRI April 2017 patient was made aware to follow up Code(s): R74.8 - ABNORMAL LEVELS OF OTHER SERUM ENZYMES
[2017-05-10] MEDS: HEPARIN NA (PORCINE) 5,000 UNITS/ML 1ML VIAL SQ SCH (21:36)
[2017-05-10] MEDS ORDERED: CHLORHEXIDINE GLUCONATE 4% CLEANSER FOR DECOLONIZATION TP SCH ×2 (22:00)
[2017-05-11] MEDS: INSULIN DETEMIR 100 UNITS/ML MDV SQ SCH (06:26)
[2017-05-11] MEDS: INSULIN SLIDING SCALE (NOVOLOG) 1 VIAL SQ SCH ×2 (06:27→12:19)
[2017-05-11 08:16] LABS: EOSINOPHIL 4.7 % (0-4.5); MCH 28.9 pg (25.7-33.7); MCHC 33.1 g/dl (32.0-35.9); MEAN CELL VOLUME 87.4 fl (80-96); MEAN PLT VOLUME 8.7 fl (7.5-11.1); NEUTROPHILS 32.6 % (42.8-82.8); PLATELET COUNT 221 K/MM3 (134-434); RDW 12.4 % (11.9-15.9); WHITE BLOOD COUNT 4.8 K/mm3 (4.0-10.0)
[2017-05-11 08:33] LABS: ALBUMIN 3.4 g/dl (3.4-5.0); ANION GAP 13 (8-16); CALCIUM 9.4 mg/dL (8.5-10.1); CO2 22 mmol/L (21-32); GLUCOSE,RANDOM 259 mg/dL (74-106); SGOT/AST 16 U/L (15-37); SGPT/ALT 25 U/L (12-78)
[2017-05-11 08:34] LABS: ALK PHOS 93 U/L (45-117); TOT PROT 7.5 g/dl (6.4-8.2)
[2017-05-11 09:00] LABS: AMYLASE 111 U/L (25-115)
[2017-05-11] MEDS ORDERED: PT OWN MED DRAWER 7, Y5N ONE (09:18)
[2017-05-11] MEDS: HEPARIN NA (PORCINE) 5,000 UNITS/ML 1ML VIAL SQ SCH (09:23)
[2017-05-11] MEDS ORDERED: amLODIPine BESYLATE 10 MG TABLET (FP) PO SCH (10:00)
[2017-05-11] MEDS ORDERED: VALSARTAN 160 MG TABLET (UD) PO SCH (10:00)
[2017-05-11] MEDS ORDERED: PATIENT'S OWN MEDICATION (NON-FORMULARY) (Amlodipine/Valsartan [Exforge 10-160 Mg Tablet] PO SCH (10:00)
[2017-05-11] MEDS ORDERED: oxyCODONE HCL 5 MG TABLET PO PRN (10:57)
--- NOTE | 2017-05-11 11:48 | PN ---
Progress Note, Physician - Current Medication List Current Medications: Active Medications Amlodipine Besylate (Norvasc -) 10 mg PO DAILY [facility] Last Admin: 05/11/17 09:23 Dose: 10 mg Heparin Sodium (Porcine) (Heparin -) 5,000 unit SQ BID [facility] Last Admin: 05/11/17 09:23 Dose: 5,000 unit Insulin Aspart (Novolog Vial Sliding Scale -) 1 vial SQ ACHS [facility] PRN Reason: Protocol Last Admin: 05/11/17 06:27 Dose: 6 units Insulin Detemir (Levemir Vial) 13 units SQ BID@0700,2200 [facility] Last Admin: 05/11/17 06:26 Dose: 13 units Oxycodone HCl (Roxicodone -) 5 mg PO Q6H PRN PRN Reason: PAIN Valsartan (Diovan -) 160 mg PO DAILY [facility] Last Admin: 05/11/17 09:23 Dose: 160 mg - Objective Vital Signs: Vital Signs Temperature 98.0 F 05/11/17 05:00 Pulse Rate 99 H 05/11/17 05:00 Respiratory Rate 18 05/11/17 05:00 Blood Pressure 109/66 05/11/17 05:00 O2 Sat by Pulse Oximetry (%) 100 05/10/17 21:00 Labs: CBC, BMP 05/11/17 06:00 05/11/17 06:00
[2017-05-11] MEDS ORDERED: SODIUM CHLORIDE 0.45% 1,000 ML IV SCH (12:00)
--- NOTE | 2017-05-11 12:27 | DS ---
Physical Examination Vital Signs: Vital Signs Temperature 98.0 F 05/11/17 05:00 Pulse Rate 99 H 05/11/17 05:00 Respiratory Rate 18 05/11/17 05:00 Blood Pressure 109/66 05/11/17 05:00 O2 Sat by Pulse Oximetry (%) 100 05/10/17 21:00 Labs: CBC, BMP 05/11/17 06:00 05/11/17 06:00 Discharge Summary Reason For Visit: HYPERGLYCEMIA Current Active Problems RYAN (acute kidney injury) (Acute) Elevated LFTs (Acute) Elevated lipase (Acute) High anion gap metabolic acidosis (Acute) Hyperglycemia, unspecified (Acute) Hyperkalemia (Acute) Hyperosmolality syndrome (Acute) Hypertension (Acute) Hyponatremia (Acute) Condition: Improved - Instructions Diet, Activity, Other Instructions: check BGM three times a day-- use Novolog sliding scale-- 150-200--- 2 units 201-250-- 4 units 251- 300--- 6 units 301- 350-- 8 units 351- 400 -- 10 units >401-- 12 units write down all BGM readings and follow up in office in a week with readings Take Levemir flex pen 7 AM and 10 PM -- 15 units for now Follow up with DR pruett in [address] Denise -- 3 weeks Referrals: Emerita Hogue MD [Primary Care Provider] - Aris Denise MD [Staff Physician] - Issa Pruett MD [Staff Physician] - - Home Medications Comprehensive Discharge Medication List: Ambulatory Orders Amlodipine/Valsartan [Exforge 10-160 mg Tablet] 1 tab PO DAILY 04/07/17 Alcohol Antiseptic Pads [Caretouch Alcohol Prep Pad] 1 each TP TID #100 med..pad 05/11/17 Insulin (Levemir) [Levemir Flexpen -] 15 units SQ BID #7 pen 05/11/17 Insulin Aspart [Novolog Flexpen] 4 unit SQ TID #1 insuln.pen 05/11/17 Miscellaneous Medical Supply [Glucometer Device] 1 each TP ASDIR #1 kit [facility] [Glucometer Test Strips #100] 1 each TP TID #1 box 05/11/17 Miscellaneous Medical Supply [Lancets] 1 each TP TID #1 box 05/11/17
--- NOTE | 2017-05-11 12:56 | PN ---
Progress Note (short form) - Note Progress Note: Feels good Denies any complaints BGM >200s No Hypos Vital Signs Period Temp Pulse Resp BP Sys/Moy Pulse Ox Last 24 Hr 97.8 F-98.7 F 81-99 18-18 109-135/66-79 100 PE: AOx3 Neck: Supple, No JVD HEENT: PERRL, EOMI Lungs: CTA Abd: Benign CVS: S1S2 Ext: No edema Neuro: No focal deficit CMP Sodium 134 mmol/L (136-145) L 05/11/17 06:00 Potassium 4.1 mmol/L (3.5-5.1) 05/11/17 06:00 Chloride 99 mmol/L (98-107) 05/11/17 06:00 Carbon Dioxide 22 mmol/L (21-32) 05/11/17 06:00 Anion Gap 13 (8-16) 05/11/17 06:00 BUN 14 mg/dL (7-18) D 05/11/17 06:00 Creatinine 1.0 mg/dL (0.7-1.3) 05/11/17 06:00 Creat Clearance w eGFR > 60 (>60) 05/11/17 06:00 POC Glucometer 322 UNITS (()) 05/11/17 12:09 Random Glucose 259 mg/dL (74-106) H 05/11/17 06:00 Hemoglobin A1c % 13.1 % (4.8-6.0) H D 05/10/17 05:35 Lactic Acid 0.8 mmol/L (0.4-2.0) 05/09/17 18:19 Calcium 9.4 mg/dL (8.5-10.1) 05/11/17 06:00 Magnesium 2.4 mg/dL (1.8-2.4) 05/09/17 16:15 Total Bilirubin 1.0 mg/dL (0.2-1.0) D 05/11/17 06:00 AST 16 U/L (15-37) D 05/11/17 06:00 ALT 25 U/L (12-78) 05/11/17 06:00 Alkaline Phosphatase 93 U/L (45-117) 05/11/17 06:00 Creatine Kinase 68 IU/L (39-308) 05/09/17 16:15 Troponin I 0.02 ng/ml (0.00-0.05) 05/09/17 16:15 Total Protein 7.5 g/dl (6.4-8.2) 05/11/17 06:00 Albumin 3.4 g/dl (3.4-5.0) 05/11/17 06:00 Total Amylase 111 U/L (25-115) 05/11/17 06:00 Lipase 1212 U/L (73-393) H 05/11/17 06:00 Current Medications Generic Name Dose Route Start Last Admin Trade Name Mian PRN Reason Stop Dose Admin Amlodipine Besylate 10 mg 05/11/17 10:00 05/11/17 09:23 Norvasc - PO 10 mg DAILY RUBÉN Administration Heparin Sodium (Porcine) 5,000 unit 05/10/17 22:00 05/11/17 09:23 Heparin - SQ 5,000 unit BID RUBÉN Administration Insulin Aspart 1 vial 05/10/17 22:00 05/11/17 12:19 Novolog Vial Sliding Scale - SQ 8 units ACHS RUBÉN Administration Protocol Insulin Detemir 13 units 05/10/17 22:00 05/11/17 06:26 Levemir Vial SQ 13 units BID@0700,2200 RUBÉN Administration Oxycodone HCl 5 mg 05/11/17 10:57 Roxicodone - PO Q6H PRN PAIN Valsartan 160 mg 05/11/17 10:00 05/11/17 09:23 Diovan - PO 160 mg DAILY RUBÉN Administration AP; Mild DKA: S Osm 295, urine ketone positive, AGap 20, CO2 18 with Venous PH of 7.23. 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 Girlfriend also diabetic and will help patient with BGM and Insulin injection Will need to be on Insulin until elevated pancreatic enzymes resolve Elevated CA 9-19 during last admission. Elevated Lipase: GI Consult noted. Further w/u as outpt. CT and MRI/MRCP done last admission showed no pancreatic abnormality Left adrenal mass 1.[address] scan. MRI however reported normal adrenals Will need to get 24 hr urine for catecholamines as outpt F/U in office next week. To call if BGM persistently >200. Problem List - Problems (1) RYAN (acute kidney injury) Code(s): N17.9 - ACUTE KIDNEY FAILURE, UNSPECIFIED (2) High anion gap metabolic acidosis Code(s): E87.2 - ACIDOSIS (3) Hyperosmolality syndrome Code(s): E87.0 - HYPEROSMOLALITY AND HYPERNATREMIA
[2017-05-11 15:09] VITALS: BP 104/70; PULSE 92; TEMP 97.5
== END 2017-05-11 15:35 | disposition home or self-care (01) | DRG 682 ==
LOC: JER 15:19 → JERBED 18:23 → JICU 05-10 00:25 → J5S 05-10 13:30
PROVIDERS: ADMIT Internal Medicine; ATTEND Internal Medicine
DX: N17.9 Acute kidney failure, unspecified (principal); E13.10 Other specified diabetes mellitus with ketoacidosis without coma; E87.1 Hypo-osmolality and hyponatremia; E87.2 Acidosis; E87.0 Hyperosmolality and hypernatremia; I10 Essential (primary) hypertension; E87.5 Hyperkalemia; Z87.891 Personal history of nicotine dependence; E66.9 Obesity, unspecified; Z79.4 Long term (current) use of insulin; E86.0 Dehydration; R22.9 Localized swelling, mass and lump, unspecified; Z68.29 Body mass index [BMI] 29.0-29.9, adult
CPT/HCPCS: 36415; 71010-TC; 80053; 80061; 81003; 82150; 82306; 82607; 82803; 83036; 83605; 83615; 83690; 83721; 83735; 84153; 84155; 84156; 84157; 84165; 84484; 85025; 85651; 86140; 93005; 93010; 99285-25; J1644

== ENCOUNTER 2019-03-27 06:57 | Emergency (ER) | payer OTHER ==
[2019-03-27 07:19] VITALS: TEMP 97.8; BMI 32.3
--- NOTE | 2019-03-27 07:32 | PDOC ---
Attending Attestation - Resident Resident Name: Kofi Álvarez - HPI HPI: 03/27/19 08:42 Pt presents to the ED complaining of epigastric pain, nausea and vomiting that have been perisistent for two weeks. Denies fever or diarrhea. States that he has been constipated for three days, but is passing gas. [facility], resolved with antibiotics. Able to tolerate PO fluids, but not solid food. 03/27/19 08:45 - Physicial Exam PE: 03/27/19 08:44 Agree with resident exam. Patient is alert and oriented x 3 and in no acute distress. + mild epigastric and RUQ tenderness to deep palpation without guarding or rebound. CV: RRR no murmurs. Lungs: CTA b/l 03/27/19 08:45 - Medical Decision Making 03/27/19 08:48 Pt presents to the ED complaining of epigastric abdominal pain, nausea and vomiting. Differential includes biliary disease, pancreatitis, less likely obstruction, less likely ACS. Will check labs including cardiac enzymes, check CT abdomen pelvis and reassess.
[2019-03-27] MEDS ORDERED: SODIUM CHLORIDE 0.9% 500 ML INFUS.BAG IV ONE (08:05)
--- NOTE | 2019-03-27 08:12 | PDOC ---
History of Present Illness - General Chief Complaint: Nausea/Vomiting Stated Complaint: VOMITING Time Seen by Provider: 03/27/19 07:30 History Source: Patient, Family Exam Limitations: No Limitations - History of Present Illness Initial Comments: 03/27/19 08:06 Kenneth Marie is a 63M with PMG HTN, pre-DM, and HLD presenting with N/V after a trip to [facility]. Patient was in [facility] for the last month, returned 6 days ago. 2 weeks ago, reports eating some meat that looked suspicious, and the next day was experiencing fever with nausea and vomiting. Drank some tea and took ampicillin , and recovered. However, 4 days ago, began to have NBNB nausea and vomiting with PO solids. Tolerates liquids such as tea. Reports some cough and chest pain after vomiting episodes, constipation with no diarrhea, abdominal pain, denies further fevers or urinary sx. No other contacts at home sick. Also reports bilateral elbow pain, but no other joints affected or rash noted. PMH: HTN on amlodipine/valsartan, HLD on Lipitor, DM on metformin and glipizide , celebrex for back pain PSH: bilateral knee replacement NKDA Past History - Travel Traveled outside of the country in the last 30 days: Yes If so, where?: [facility] - Past Medical History Allergies/Adverse Reactions: Allergies Allergy/AdvReac Type Severity Reaction Status Date / Time No Known Allergies Allergy Verified 03/27/19 07:12 Home Medications: Ambulatory Orders Amlodipine/Valsartan [Exforge 5-160 mg Tablet] 1 tab PO DAILY 03/27/19 Atorvastatin Ca [Lipitor] 40 mg PO HS 03/27/19 Celecoxib [Celebrex] 200 mg PO DAILY 03/27/19 metFORMIN XR [Glucophage *Xr* -] 1,000 mg PO DAILY 03/27/19 COPD: No Diabetes: Yes HTN: Yes Hypercholesterolemia: Yes - Immunization History Immunization Up to Date: Yes - Suicide/Smoking/Psychosocial Hx Smoking History: Current every day smoker Have you smoked in the past 12 months: No Cigars Per Day: 2 Information on smoking cessation initiated: No 'Breaking Loose' booklet given: 04/07/17 Hx Alcohol Use: Yes (EVERY OTHER DAY) Drug/Substance Use Hx: No Review of Systems - Review of Systems Constitutional: Yes: Fever (at time of initial presentation, no fevers reported at this time) HEENTM: No: Blurred Vision, Hearing Loss, Mouth Pain Respiratory: Yes: Cough, Shortness of Breath (chronic SOB, not an acute finding) . No: Wheezing Cardiac (ROS): No: Chest Pain, Irregular Heart Rate, Palpitations, Syncope ABD/GI: Yes: Constipated, Nausea, Poor Appetite, Vomiting. No: Abdominal Distended, Diarrhea : No: Burning, Dysuria, Discharge, Frequency, Hematuria Musculoskeletal: Yes: Back Pain Integumentary: No: Bruising, Erythema, Lesions, Rash Neurological: No: Headache, Numbness, Paresthesia, Seizure, Weakness All Other Systems: Reviewed and Negative *Physical Exam - Vital Signs Last Vital Signs Temp Pulse Resp BP Pulse Ox 97.8 F 82 16 130/80 97 03/27/19 07:08 03/27/19 07:08 03/27/19 07:08 03/27/19 07:08 03/27/19 07:08 - Physical Exam General Appearance: Yes: Nourished, Appropriately Dressed. No: Apparent Distress HEENT: positive: EOMI, FARIDEH, Normal Voice, Symmetrical, Hearing Grossly Normal. negative: Pale Conjunctivae, Scleral Icterus (R), Scleral Icterus (L) Neck: positive: Trachea midline, Supple. negative: Decreased range of motion, Lymphadenopathy (R), Lymphadenopathy (L) Respiratory/Chest: positive: Lungs Clear, Normal Breath Sounds. negative: Chest Tender, Respiratory Distress, Accessory Muscle Use, Crackles, Rales, Rhonchi Cardiovascular: positive: Regular Rhythm, Regular Rate. negative: Edema, Murmur Gastrointestinal/Abdominal: positive: Normal Bowel Sounds, Tender (midline suprapubic tenderness, negative robins's sign, no signs of rash or deformity on external exam), Flat, Soft. negative: Organomegaly, Pulsatile Mass, Distended Musculoskeletal: positive: Normal Inspection. negative: CVA Tenderness Extremity: positive: Normal Capillary Refill, Normal Inspection, Normal Range of Motion, Other (bilateral elbows show full ROM, 5/5 motor, no signs of erythema or rash). negative: Tender Integumentary: positive: Normal Color, Dry, Warm Neurologic: positive: Fully Oriented, Alert, Normal Mood/Affect, Normal Response , Motor Strength 5/5 ED Treatment Course - LABORATORY CBC & Chemistry Diagram: 03/27/19 08:40 03/27/19 08:40 - ADDITIONAL ORDERS Additional order review: Laboratory Results 03/27/19 07:52 POC Glucometer 103 03/27/19 07:52 POC Glucometer 103 Medical Decision Making - Medical Decision Making 03/27/19 08:06 Kenneth Marie is a 63M with PMG HTN, pre-DM, and HLD presenting with N/V after a trip to [facility]. Patient presenting with N/V after attempting to east solids, but is still tolerating PO liquids. Concerned for gastroenteritis given ingestion history, but currently not having fevers or diarrhea and no other sick contacts. Elbow pain and recent travel to [facility] suggests arbovirus infection, but not having fevers or rash and joint pain limited to elbows. Abdominal pain with vomiting and constipation concerning for intrabdominal process such as pancreatitis vs. diverticulitis vs. cholelithiasis. Evaluating with CMP+mag, CBC, lipase. Will also obtain CT abdomen with contrast given patient age and presentation. 03/27/19 11:06 All labs WNL, CT abd shows no acute pathology, has enlarged prostate and non- concerning adrenal adenoma. Sx likely gastritis after GI infection 2/2 food poisoning. Will PO challenge and likely dispo home with PMD f/u. 03/27/19 11:44 Tolerating PO well, stable, ready to go home. *DC/Admit/Observation/Transfer Diagnosis at time of Disposition: Nausea & vomiting Qualifiers: Vomiting type: unspecified Vomiting Intractability: unspecified Qualified Code( s): R11.2 - Nausea with vomiting, unspecified - Discharge Dispostion Disposition: HOME Condition at time of disposition: Improved Decision to Admit order: No - Referrals Referrals: Emertia Hogue MD [Primary Care Provider] - - Patient Instructions Printed Discharge Instructions: DI for Nausea -- Adult, DI for Vomiting -- Adult Additional Instructions: Today you were evaluated for nausea and vomiting after your recent trip to [facility]. We were concerned about a possible infection or other illness in your stomach and intestines that might be the cause. However, your blood tests do not show any problems with your blood or signs of infection, and the CT scan of your abdomen does not show any problems either. You most likely are experiencing the after-effects of food poisoning. Please drink a lot of fluids and try to eat as much as you can. If you experience new fevers, worsening nausea or vomiting, begin to vomit blood, become unable to drink any fluids, have worsening abdominal pain, or have any other concerning symptoms, please return to an emergency room immediately. If you remain constipated, it is likely because you are dehydrated; try to drink more fluids and try taking Miralax. Please follow-up with your doctor in the next week for further follow-up of your symptoms. - Post Discharge Activity
[2019-03-27 08:55] LABS: BASO % 0.6 % (0-2.0); EOS % 3.8 % (0-4.5); HEMATOCRIT 37.5 % (35.4-49); HEMOGLOBIN 12.7 GM/dL (11.7-16.9); LYMPH % 39.7 % (8-40); MCH 30.9 pg (25.7-33.7); MCHC 33.9 g/dl (32.0-35.9); MEAN PLT VOLUME 7.3 fl (7.5-11.1); MONO % 10.3 % (3.8-10.2); NEUT % 45.6 % (42.8-82.8); PLATELET COUNT 308 K/MM3 (134-434); RBC 4.12 M/mm3 (4.00-5.60); RDW 13.8 % (11.9-15.9); WHITE BLOOD COUNT 5.4 K/mm3 (4.0-10.0)
[2019-03-27 09:55] LABS: ALBUMIN 3.6 g/dl (3.4-5.0); BILIRUBIN,TOTAL 0.6 mg/dL (0.2-1); BLOOD UREA NITROGEN 8.6 mg/dL (7-18); CALCIUM 9.5 mg/dL (8.5-10.1); CREATININE 0.8 mg/dL (0.55-1.3); POTASSIUM 4.2 mmol/L (3.5-5.1); TOT PROT 7.1 g/dl (6.4-8.2)
[2019-03-27 12:06] VITALS: BP 135/71; PULSE 83
--- NOTE | 2019-03-29 10:50 | EKG ---
Test Reason : Blood Pressure : / mmHG Vent. Rate : 073 BPM Atrial Rate : 073 BPM P-R Int : 142 ms QRS Dur : 104 ms QT Int : 398 ms P-R-T Axes : 072 001 050 degrees QTc Int : 438 ms NORMAL SINUS RHYTHM NORMAL ECG Confirmed by TIANA STREETER MD ([id number]) on 03/29/2019 10:50:09 AM Referred By: Confirmed By:TIANA STREETER MD
== END 2019-03-27 11:55 | disposition home or self-care (01) ==
LOC: JER 06:57
PROC: 3E0337Z Introduction of Electrolytic and Water Balance Substance into Peripheral Vein, Percutaneous Approach (ICD-10-PCS; principal; 2019-03-27)
DX: R11.2 Nausea with vomiting, unspecified (principal); R73.03 Prediabetes; E78.5 Hyperlipidemia, unspecified
CPT/HCPCS: 36415; 74177-TC; 80053; 82962; 83690; 83735; 85025; 93005; 93010; 99283-25

== ENCOUNTER 2022-05-20 08:31 | Emergency (ER) | payer OTHER ==
[2022-05-20 08:39] VITALS: TEMP 98.4; BMI 28.8
[2022-05-20] MEDS ORDERED: ACETAMINOPHEN 500 MG TABLET (FP) PO ONE (09:14)
[2022-05-20] MEDS ORDERED: DIPHTH,PERTUSS(ACELL),TET 0.5 ML DISP.SYRIN IM ONE ×2 (09:18→09:38)
[2022-05-20] MEDS ORDERED: ACETAMINOPHEN 325 MG TABLET (FP) ONE (09:37)
[2022-05-20 10:30] LABS: BASO % 0.9 % (0-2.0); EOS % 4.4 % (0-4.5); HEMATOCRIT 41.2 % (35.4-49); HEMOGLOBIN 13.9 GM/dL (11.7-16.9); LYMPH % 33.4 % (8-40); MCH 30.5 pg (25.7-33.7); MCHC 33.7 g/dl (32.0-35.9); MEAN CELL VOLUME 90.7 fl (80-96); MEAN PLT VOLUME 7.4 fl (7.5-11.1); MONO % 9.3 % (3.8-10.2); PLATELET COUNT 292 10^3/uL (134-434); RBC 4.55 M/mm3 (4.00-5.60); WHITE BLOOD COUNT 5.4 K/mm3 (4.0-10.0)
[2022-05-20 10:37] LABS: INR 1.04 (0.83-1.09)
[2022-05-20 10:39] LABS: ACTIVATED PTT 30.5 SECONDS (25.2-36.5)
[2022-05-20 10:40] LABS: CHLORIDE 109 mmol/L (98-107); SODIUM 140 mmol/L (136-145)
[2022-05-20 10:42] LABS: CALCIUM 9.2 mg/dL (8.5-10.1)
[2022-05-20 10:44] LABS: ALBUMIN 3.4 g/dl (3.4-5.0); BLOOD UREA NITROGEN 17.8 mg/dL (7-18); CO2 26 mmol/L (21-32); GLUCOSE,RANDOM 106 mg/dL (74-106); MAGNESIUM 2.2 mg/dL (1.8-2.4)
[2022-05-20 10:46] LABS: SGOT/AST 64 U/L (15-37); SGPT/ALT 36 U/L (13-61)
[2022-05-20 10:47] LABS: BILIRUBIN,TOTAL 0.4 mg/dL (0.2-1); TOT PROT 7.2 g/dl (6.4-8.2)
[2022-05-20 10:49] LABS: ALK PHOS 71 U/L (45-117)
[2022-05-20 10:51] LABS: ANION GAP 5 MMOL/L (8-16)
[2022-05-20 14:06] LABS: BLOOD UREA NITROGEN 16.9 mg/dL (7-18); CALCIUM 9.2 mg/dL (8.5-10.1)
[2022-05-20 14:18] LABS: CREATININE 0.8 mg/dL (0.55-1.3)
[2022-05-20 15:40] VITALS: BP 139/77; PULSE 79; RESP 20
== END 2022-05-20 15:38 | disposition home or self-care (01) ==
LOC: JER 08:31
PROC: 3E0234Z Introduction of Serum, Toxoid and Vaccine into Muscle, Percutaneous Approach (ICD-10-PCS; principal; 2022-05-20)
DX: H57.11 Ocular pain, right eye (principal); W19.XXXA Unspecified fall, initial encounter; Y92.9 Unspecified place or not applicable
CPT/HCPCS: 36415; 70450-TC; 70486-TC; 71045-TC-FY; 72125-TC; 80048; 80053; 83735; 85025; 85610; 85730; 90471; 90715; 93005; 93010; 99284-25

== ENCOUNTER 2022-08-17 09:41 | Emergency (ER) | payer OTHER ==
[2022-08-17 09:50] VITALS: RESP 18; BMI 31.4
[2022-08-17] MEDS ORDERED: ACETAMINOPHEN 500 MG TABLET (FP) ONE (10:32)
[2022-08-17] MEDS ORDERED: IBUPROFEN 600 MG TABLET (FP) PO ONE ×2 (10:32)
[2022-08-17] MEDS ORDERED: ACETAMINOPHEN 500 MG TABLET (FP) PO ONE (10:32)
[2022-08-17 11:37] VITALS: BP 159/79; PULSE 62; TEMP 99.1
== END 2022-08-17 12:00 | disposition home or self-care (01) ==
LOC: JER 09:41
DX: J09.X2 Influenza due to identified novel influenza A virus with other respiratory manifestations (principal); R05.1 Acute cough; R50.9 Fever, unspecified
CPT/HCPCS: 0241U-QW; 71046-TC-FY; 99284-25

== ENCOUNTER 2022-09-03 21:10 | Inpatient (IN) | payer OTHER ==
[2022-09-03 21:15] VITALS: BMI 29.5
[2022-09-03] MEDS ORDERED: methylPREDNISolone NA SUCC 125 MG/2 ML VIAL IVPB ONE (21:23)
[2022-09-03] MEDS ORDERED: FAMOTIDINE 20 MG/50 ML IVPB 20 MG/50 ML MG IVPB ONE ×2 (21:23→21:35)
[2022-09-03] MEDS ORDERED: methylPREDNISolone NA SUCC 125 MG/2 ML VIAL ONE (21:35)
[2022-09-03 22:14] LABS: BASO % 0.9 % (0-2.0); EOS % 3.5 % (0-4.5); HEMATOCRIT 41.2 % (35.4-49); HEMOGLOBIN 13.3 GM/dL (11.7-16.9); LYMPH % 41.8 % (8-40); MCH 28.6 pg (25.7-33.7); MCHC 32.3 g/dl (32.0-35.9); MEAN CELL VOLUME 88.4 fl (80-96); MONO % 8.2 % (3.8-10.2); NEUT % 45.6 % (42.8-82.8); PLATELET COUNT 523 10^3/uL (134-434); RBC 4.66 M/mm3 (4.00-5.60); RDW 13.2 % (11.9-15.9); WHITE BLOOD COUNT 6.6 K/mm3 (4.0-10.0)
[2022-09-03 22:41] LABS: CALCIUM 9.4 mg/dL (8.5-10.1)
[2022-09-03 22:42] LABS: ALBUMIN 3.4 g/dl (3.4-5.0)
[2022-09-03 22:45] LABS: CREATININE 0.7 mg/dL (0.55-1.3)
[2022-09-03 22:46] LABS: BILIRUBIN,TOTAL 0.6 mg/dL (0.2-1)
[2022-09-03] MEDS ORDERED: SODIUM CHLORIDE 1,000 ML IV SCH (23:45)
[2022-09-04 07:54] LABS: BASO % 0.4 % (0-2.0); HEMATOCRIT 41.2 % (35.4-49); HEMOGLOBIN 13.5 GM/dL (11.7-16.9); LYMPH % 15.3 % (8-40); MCH 29.2 pg (25.7-33.7); MCHC 32.7 g/dl (32.0-35.9); MEAN CELL VOLUME 89.2 fl (80-96); MEAN PLT VOLUME 7.1 fl (7.5-11.1); MONO % 0.7 % (3.8-10.2); NEUT % 83.6 % (42.8-82.8); PLATELET COUNT 512 10^3/uL (134-434); RBC 4.62 M/mm3 (4.00-5.60); RDW 13.2 % (11.9-15.9); WHITE BLOOD COUNT 6.2 K/mm3 (4.0-10.0)
[2022-09-04 08:19] LABS: CALCIUM 9.7 mg/dL (8.5-10.1)
[2022-09-04 08:20] LABS: BLOOD UREA NITROGEN 13.8 mg/dL (7-18)
[2022-09-04 08:23] LABS: CREATININE 0.7 mg/dL (0.55-1.3)
[2022-09-04] MEDS ORDERED: methylPREDNISolone NA SUCC 40 MG/1 ML VIAL IVPUSH SCH ×2 (10:00→17:00)
[2022-09-04] MEDS ORDERED: FAMOTIDINE 20 MG/50 ML IVPB 20 MG/50 ML MG IVPB SCH (10:00)
[2022-09-04] MEDS ORDERED: methylPREDNISolone NA SUCC 40 MG/1 ML VIAL ONE ×2 (10:20→16:59)
[2022-09-04] MEDS ORDERED: FAMOTIDINE 20 MG/50 ML IVPB 20 MG/50 ML MG IVPB ONE (10:20)
[2022-09-04 10:24] VITALS: RESP 18
[2022-09-04 17:10] VITALS: BP 157/84; PULSE 90; TEMP 97.6
== END 2022-09-04 18:32 | disposition home or self-care (01) | DRG 916 ==
LOC: JER 21:10 → JERBED 23:33
PROVIDERS: ADMIT Internal Medicine; ATTEND Internal Medicine
DX: T78.3XXA Angioneurotic edema, initial encounter (principal); T78.09XA Anaphylactic reaction due to other food products, initial encounter; I10 Essential (primary) hypertension; E11.9 Type 2 diabetes mellitus without complications; E78.5 Hyperlipidemia, unspecified; R22.0 Localized swelling, mass and lump, head; F17.210 Nicotine dependence, cigarettes, uncomplicated
CPT/HCPCS: 0241U-QW; 36415; 71045-TC-FY; 80048; 80053; 82962; 85025; 86160; 93005; 93010; 99285-25

== ENCOUNTER 2024-01-28 08:22 | Emergency (ER) | payer OTHER ==
[2024-01-28 08:27] VITALS: BP 129/74; PULSE 83; TEMP 98.3; BMI 29.5
[2024-01-28] MEDS ORDERED: FAMOTIDINE 20 MG/50 ML IVPB 20 MG/50 ML MG IVPB ONE (09:00)
[2024-01-28] MEDS ORDERED: DEXAMETHASONE SOD PHOSPHATE 10 MG/1 ML VIAL ONE (09:00)
[2024-01-28] MEDS: DEXAMETHASONE SOD PHOSPHATE 10 MG/1 ML VIAL IVPUSH ONE (09:19)
[2024-01-28] MEDS: FAMOTIDINE 20 MG/50 ML IVPB 20 MG/50 ML MG IVPB ONE (09:19)
[2024-01-28 09:25] LABS: BASO % 0.7 % (0-2.0); EOS % 7.2 % (0-4.5); HEMATOCRIT 39.2 % (35.4-49); HEMOGLOBIN 13.2 GM/dL (11.7-16.9); LYMPH % 35.6 % (8-40); MCH 30.8 pg (25.7-33.7); MCHC 33.7 g/dl (32.0-35.9); MEAN CELL VOLUME 91.2 fl (80-96); MEAN PLT VOLUME 6.8 fl (7.5-11.1); MONO % 8.6 % (3.8-10.2); NEUT % 47.9 % (42.8-82.8); PLATELET COUNT 247 10^3/uL (134-434); RBC 4.29 M/mm3 (4.00-5.60); RDW 13.3 % (11.9-15.9); WHITE BLOOD COUNT 4.9 K/mm3 (4.0-10.0)
[2024-01-28 09:43] LABS: POTASSIUM 4.6 mmol/L (3.5-5.1)
[2024-01-28 09:45] LABS: ALBUMIN 3.6 g/dl (3.4-5.0); BLOOD UREA NITROGEN 11.2 mg/dL (7-18); CALCIUM 9.2 mg/dL (8.5-10.1)
[2024-01-28 09:49] LABS: CREATININE 0.8 mg/dL (0.55-1.3)
[2024-01-28 09:50] LABS: TOT PROT 6.8 g/dl (6.4-8.2)
[2024-01-28 10:12] VITALS: RESP 16
== END 2024-01-28 10:32 | disposition home or self-care (01) ==
LOC: JER 08:22
PROC: 3E033GC Introduction of Other Therapeutic Substance into Peripheral Vein, Percutaneous Approach (ICD-10-PCS; principal; 2024-01-28)
PROC: 3E033GC Introduction of Other Therapeutic Substance into Peripheral Vein, Percutaneous Approach (ICD-10-PCS; 2024-01-28)
PROC: 3E033GC Introduction of Other Therapeutic Substance into Peripheral Vein, Percutaneous Approach (ICD-10-PCS; 2024-01-28)
DX: T78.1XXA Other adverse food reactions, not elsewhere classified, initial encounter (principal); K13.0 Diseases of lips
CPT/HCPCS: 36415; 80053; 85025; 99284-25; J1100

== ENCOUNTER 2025-01-15 12:03 | Emergency (ER) | payer OTHER ==
[2025-01-15 12:11] VITALS: BP 132/79; PULSE 103; RESP 18; TEMP 98.2; BMI 28.8
[2025-01-15] MEDS ORDERED: ACETAMINOPHEN 325 MG TABLET (FP) ONE (12:41)
[2025-01-15] MEDS: ACETAMINOPHEN 325 MG TABLET (FP) PO ONE (12:49)
== END 2025-01-15 14:11 | disposition home or self-care (01) ==
LOC: JERFT 12:03
DX: M25.562 Pain in left knee (principal); M25.662 Stiffness of left knee, not elsewhere classified; W01.0XXA Fall on same level from slipping, tripping and stumbling without subsequent striking against object, initial encounter
CPT/HCPCS: 73560-TC-LT-FY; 99283-25